=== PATIENT | female | born 1950 | race Caucasian/White ===

== ENCOUNTER 2017-03-30 14:35 | Inpatient (IN) ==
[2017-03-30] MEDS ORDERED: SOLU-MEDROL IV ONE (15:15)
[2017-03-30] MEDS ORDERED: DUONEB (A & A) INH ONE (15:17)
[2017-03-30 16:12] LABS: ALLEN TEST YES; BE 2.1 mmoll (-3.0-3.0); BLOOD TYPE ARTERIAL; DRAW SITE R RADIAL; METHB 0.8 % (0.0-1.5); O2(CT) 15.4 mL/dL (15.0-23.0); SAMPLE BLOOD; SAO2 80.3 % (95.0-100.0); THB 14.1 g/dL (11.5-17.4); pH(98.6) 7.23 (7.35-7.45)
[2017-03-30 16:12] LABS: MANUAL DIFF NEEDED? NO
[2017-03-30 16:13] LABS: PCO2(98.6) 77 mmHg (35-45); PO2(98.6) 44 mmHg (60-100)
[2017-03-30 16:14] LABS: MODALITY ROOM AIR
[2017-03-30 16:17] LABS: BASO% 0.7 % (0.0-0.8); EOS# 0.68 X1000 (0.0-0.7); EOS% 7.9 % (0.0-10.0); HEMATOCRIT 44.4 % (37.0-47.0); HEMOGLOBIN 13.5 g/dL (12.0-16.0); IMM GRAN# 0.03 X1000 (0.0-0.04); IMM GRAN% 0.3 % (0.0-0.5); LYMPH% 19.7 % (20.5-51.1); MCH 29.2 PG (27-31); MCHC 30.4 g/dL (33-37); MCV 96.1 FL (81-99); MONO# 0.73 X1000 (0.11-0.59); MONO% 8.5 % (1.7-9.3); MPV 13.2 FL (7.4-10.4); NEUT% 62.9 % (42.2-75.2); PLT 255 X1000 (130-400); RBC 4.62 XMIL (4.2-5.4)
[2017-03-30 16:42] LABS: ALBUMIN 3.4 g/dL (3.5-5.0); CALCIUM 8.8 mg/dL (8.8-10.2); POTASSIUM 5.4 mmol/L (3.5-5.1); TOTAL BILIRUBIN 0.34 mg/dL (0.20-1.00); TOTAL PROTEIN 6.7 g/dL (6.3-8.3)
--- NOTE | 2017-03-30 16:49 | Diag Imaging Result Doc PS360 ---
CHEST-1 VIEW - 03/30/2017 INDICATION: shortness of breath TECHNIQUE: COMPARISON: 01/02/2017 FINDINGS: Stable cardiomegaly. Pulmonary vascularity is grossly normal. No definite infiltrates. IMPRESSION: Cardiomegaly. Electronically signed by Isaiah Dior 03/30/2017 4:47 PM
--- NOTE | 2017-03-30 17:46 | PROVIDER DOCUMENTATION ---
This chart was entered by Bernabe Camacho Scribe, acting as scribe for Henry Naik MD. HPI-General Adult - General Source: patient - History of Present Illness -Gen Adult Nature of Presenting Problems: Patient is a 67 y/o F that presents to the ER with right shoulder pain, shortness of breath, and weakness. The shortness of breath began 24 hours ago but worsened today prior to PT. patient then had right shoulder pain. patient reports symptoms are better. EMS found her hypotensive., o2 saturation on RA was in the 70s Location of Pain/Injury: reports: upper extremity (right shoulder) Pain Radiation: reports: no radiation Quality of Pain: reports: dull Severity: reports: moderate Onset/Duration: reports: abrupt, this afternoon Timing: reports: gone now Context/Activities at Onset: reports: light activity (about to start PT) Modifying Factors: improves with: nothing Associated Symptoms: reports: joint pain, shortness of breath, weakness. denies : back/neck pain, cough, dizziness, EENT symptoms, fever/chills, genitourinary problems, vomiting Similar Symptoms Previously?: Yes Recently seen or treated by another doctor?: No <Henry Naik - Last Filed: 03/30/17 17:45> - General Source: patient <StevanEdgard - Last Filed: 03/30/17 19:13> - General Chief Complaint: Weakness Stated Complaint: HYPERTENSION Time Seen by Provider: 03/30/17 14:39 Allergies/Adverse Reactions: Patient Allergies Allergy/AdvReac Type Severity Reaction Status Date / Time codeine Allergy ITCHING Verified 03/30/17 16:13 Home Medications: Home Medication List Medication Instructions Recorded Confirmed Last Taken Type Budesonide 0.5 mg IH TID 03/30/17 03/30/17 Unknown History Budesonide/Formoterol Fumarate 1 dose INH DAILY 03/30/17 03/30/17 Unknown History [Symbicort 160-4.5 Mcg Inhaler] Carvedilol [Coreg] 1 tab PO BID 03/30/17 03/30/17 Unknown History Chlorthalidone 25 mg PO DAILY 03/30/17 03/30/17 Unknown History Clobetasol Propionate [Cormax] 50 ml TP 03/30/17 Unknown History Epinephrine Auto Injector [Epipen] 1 dose ORDERED DIRECTED 03/30/17 Unknown History Formoterol Fumarate [Perforomist] 20 mcg IH BID 03/30/17 03/30/17 Unknown History Gabapentin 300 mg PO TID 03/30/17 03/30/17 Unknown History Ipratropium/Albuterol Sulfate 3 ml IH TID 03/30/17 03/30/17 Unknown History [Iprat-Albut 0.5-3(2.5) mg/3 ml] Losartan Potassium 100 mg PO DAILY 03/30/17 03/30/17 Unknown History Meloxicam [Mobic] 7.5 mg PO DAILY 03/30/17 03/30/17 Unknown History Montelukast Sodium [Singulair] 10 mg PO DAILY 03/30/17 03/30/17 Unknown History Omeprazole 20 mg PO DAILY 03/30/17 03/30/17 Unknown History Oxybutynin [Ditropan] 5 mg PO DAILY 03/30/17 03/30/17 Unknown History Polyethylene Glycol 3350 [Miralax] 17 gm PO DAILY PRN 03/30/17 03/30/17 Unknown History Simvastatin 40 mg PO DAILY 03/30/17 03/30/17 Unknown History Review of Systems - Adult - REVIEW OF SYSTEMS - ADULT Constitutional: denies: chills, fever Eyes: reports: no symptoms reported Ears, Nose, Mouth & Throat: reports: no symptoms reported Cardiovascular: denies: chest pain, orthopnea, palpitations, syncope Respiratory: reports: shortness of breath. denies: cough, wheezing Gastrointestinal: denies: abdominal pain, diarrhea, nausea, vomiting Genitourinary: reports: no symptoms reported Musculoskeletal: reports: joint pain, muscle weakness. denies: back pain, neck pain Integumentary: reports: no symptoms reported Neurological: reports: no symptoms reported Psychiatric: reports: no symptoms reported Endocrine: reports: no symptoms reported Hematologic/Lymphatic: reports: no symptoms reported Allergic/Immunologic: reports: no symptoms reported All Other Systems: Reviewed and Negative <Henry Naik - Last Filed: 03/30/17 17:45> - REVIEW OF SYSTEMS - ADULT Constitutional: denies: fever Eyes: reports: no symptoms reported Ears, Nose, Mouth & Throat: reports: no symptoms reported Cardiovascular: denies: chest pain, orthopnea, palpitations, syncope <Edgard Calles - Last Filed: 03/30/17 19:13> Past History - Adult - PAST MEDICAL HISTORY-ADULT Review of Records: reports: Old Records Reviewed, Nursing Assessment Review, Medications Reviewed Cardiovascular: reports: HTN Respiratory: reports: asthma Gastrointestinal: reports: GERD Musculoskeletal: reports: arthritis Endocrine/Immune: reports: thyroid disorder Other Conditions: reports: denies history - PRIOR SURGERIES/PROCEDURES Surgical/Procedure History: reports: cholecystectomy, hysterectomy, joint replacement - IMMUNIZATION STATUS Childhood Immunizations: See Nurse Assessment Flu Vaccine: See Nurse Assessment - FAMILY HISTORY Family History: reviewed, not pertinent - SOCIAL HISTORY Smoking: non-smoker Living Situation: family <Henry Naik - Last Filed: 03/30/17 17:45> - PAST MEDICAL HISTORY-ADULT Review of Records: reports: Old Records Reviewed, Nursing Assessment Review, Medications Reviewed Cardiovascular: reports: HTN Respiratory: reports: asthma <Edgard Calles - Last Filed: 03/30/17 19:13> Physical Exam-General - PHYSICAL EXAM-ADULT Initial Vital Signs Reviewed: Yes - CONSTITUTIONAL General Appearance: alert, mild distress, obese - EYES Eyes: PERRL/EOMI, pink conjunctivae - HEAD, EARS, NOSE, MOUTH & THROAT HENMT: normocephalic/atraumatic, moist mucous membranes, normal ENT inspection - NECK Neck: full range of motion, normal inspection - RESPIRATORY Respiratory: no respiratory distress, no accessory muscle use, wheezing (left upper). negative: stridor - CARDIOVASCULAR Cardiovascular: regular rate, rhythm, no edema, no JVD, no murmur - GASTROINTESTINAL (ABDOMEN) Abdominal Exam: normal bowel sounds, non tender, soft, no organomegaly, no pulsatile mass - MUSCULOSKELETAL Back Exam: no CVA tenderness, no vertebral tenderness Extremity: normal range of motion, normal inspection, no pedal edema - SKIN Integumentary: normal color, warm/dry - NEUROLOGIC Neurologic: web development director II-XII nml as tested, no motor/sensory deficits - PSYCHIATRIC Psych/Mental Status: normal mood/affect, normal thought content, normal thought process, oriented x 3 <Henry Naik - Last Filed: 03/30/17 17:45> - PHYSICAL EXAM-ADULT Initial Vital Signs Reviewed: Yes - CONSTITUTIONAL General Appearance: alert, mild distress, obese - EYES Eyes: PERRL/EOMI, pink conjunctivae - HEAD, EARS, NOSE, MOUTH & THROAT HENMT: normocephalic/atraumatic, moist mucous membranes - NECK Neck: full range of motion, normal inspection - RESPIRATORY Respiratory: no respiratory distress, no accessory muscle use, wheezing. negative: stridor <Edgard Calles - Last Filed: 03/30/17 19:13> Progress - PLAN OF CARE/RESULTS Progress/Plan/Lab Results: Vital Signs - 8 hr 03/30/17 14:42 03/30/17 14:45 03/30/17 15:09 Temperature 98.1 F Pulse Rate 96 H 89 Respiratory Rate 20 21 Blood Pressure 94/47 108/73 O2 Sat by Pulse Oximetry 78 L 92 L 96 Orders Category Date Time Status CHEST-2 VIEWS [RAD] Stat Exams 03/30/17 15:13 Ordered ABG [RESP] Routine Lab 03/30/17 15:14 Ordered CBC WITH ELECTRONIC DIFF [HEME] Stat Lab 03/30/17 15:14 Ordered COMPREHENSIVE METABOLIC PANEL [CHEM] Stat Lab 03/30/17 15:12 Ordered D-DIMER [CHEM] Stat Lab 03/30/17 15:12 Ordered PRO B-NATRIURETIC PEPTIDE Stat Lab 03/30/17 15:15 Ordered TROPONIN T Stat Lab 03/30/17 15:13 Ordered Albuterol 2.5MG/Ipratrop 0.5MG [Duoneb (A & A)] Med 03/30/17 15:17 Discontinued 3 ml INH NOW ONE Methylprednisolone Sod Succ [Solu-Medrol] Med 03/30/17 15:15 Discontinued 125 mg IV NOW ONE Aerosol Treatments Routine Oth 03/30/17 15:17 Active Aerosol Treatments Stat Oth 03/30/17 15:17 Active Result Diagrams: 03/30/17 15:06 03/30/17 15:06 - EKG 1 Time of EKG reading by physician:: 15:24 EKG Read and Signed by:: Henry Naik EKG Interpretation (*Must complete 3 of following elements*): Abnormal Rate: 87 Rhythm: NSR Shushan: normal QRS: normal NC Interval: normal ST Wave: non-specific ST changes - CHANGE OF SHIFT REPORT (ED Provider) Report Given and Care Transferred to:: Time of Transfer: 17:46 Items Pending: Labs, CT/MRI Results <Henry Naik - Last Filed: 03/30/17 17:45> - PLAN OF CARE/RESULTS Progress/Plan/Lab Results: Vital Signs - 8 hr 03/30/17 14:42 03/30/17 14:45 03/30/17 15:09 Temperature 98.1 F Pulse Rate 96 H 89 Respiratory Rate 20 21 Blood Pressure 94/47 108/73 O2 Sat by Pulse Oximetry 78 L 92 L 96 03/30/17 15:20 03/30/17 17:43 03/30/17 19:02 Temperature 97.9 F Pulse Rate 85 84 84 Respiratory Rate 18 18 18 Blood Pressure 137/69 134/84 O2 Sat by Pulse Oximetry 95 94 L 94 L Laboratory Results - last 24 hr 03/30/17 03/30/17 03/30/17 15:06 15:06 15:06 WBC RBC Hgb Hct MCV MCH MCHC RDW Std Deviation Plt Count MPV Immature Gran % (Auto) Neut % (Auto) Lymph % (Auto) Person % (Auto) Eos % (Auto) Baso % (Auto) Immature Gran # (Auto) Neut # (Auto) Lymph # (Auto) Person # (Auto) Eos # (Auto) Baso # (Auto) D-Dimer 0.82 H Specimen Type Sample Site pH pCO2 pO2 HCO3 Base Excess Oxyhemoglobin ABG O2 Sat (Calculated) ABG O2 Saturation ABG Carboxyhemoglobin ABG Methemoglobin Júnior Test A-a O2 Difference Total Hemoglobin Lactate Blood Gas Modality FiO2 % Sodium 143 Potassium 5.4 H Chloride 102 Carbon Dioxide 40 H Anion Gap 1 BUN 33 H Creatinine 1.6 H Estimated GFR/1.73 m2 32 BUN/Creatinine Ratio 21 Glucose 162 H Calculated Osmolality 296 Calcium 8.8 Total Bilirubin 0.34 AST 23 ALT 16 Alkaline Phosphatase 68 Troponin T 0.175 H Flp-M-Qgovxeeidsv Pept Total Protein 6.7 Albumin 3.4 L Globulin 3.3 Albumin/Globulin Ratio 1.0 Urine Source Urine Color Urine Turbidity Urine pH Ur Specific [place] Urine Protein Ur Glucose (Stick) Ur Ketones (Stick) Urine Blood Urine Nitrite Urine Bilirubin Urobilinogen Dipstick Urine Leukocytes Urine WBC (Auto) Urine RBC (Auto) U Epithel Cells (Auto) Urine Bacteria (Auto) 03/30/17 03/30/17 03/30/17 15:06 15:06 15:45 WBC 8.61 RBC 4.62 Hgb 13.5 Hct 44.4 MCV 96.1 MCH 29.2 MCHC 30.4 L RDW Std Deviation 15.3 H Plt Count 255 MPV 13.2 H Immature Gran % (Auto) 0.3 Neut % (Auto) 62.9 Lymph % (Auto) 19.7 L Person % (Auto) 8.5 Eos % (Auto) 7.9 Baso % (Auto) 0.7 Immature Gran # (Auto) 0.03 Neut # (Auto) 5.41 Lymph # (Auto) 1.70 Person # (Auto) 0.73 H Eos # (Auto) 0.68 Baso # (Auto) 0.06 D-Dimer Specimen Type ARTERIAL Sample Site R RADIAL pH 7.23 L pCO2 77 H* pO2 44 L* HCO3 26.0 Base Excess 2.1 Oxyhemoglobin 77.7 L* ABG O2 Sat (Calculated) 15.4 ABG O2 Saturation 80.3 L ABG Carboxyhemoglobin 2.40 ABG Methemoglobin 0.8 Júnior Test YES A-a O2 Difference 9.0 Total Hemoglobin 14.1 Lactate 1.50 Blood Gas Modality ROOM AIR FiO2 % 21.0 Sodium Potassium Chloride Carbon Dioxide Anion Gap BUN Creatinine Estimated GFR/1.73 m2 BUN/Creatinine Ratio Glucose Calculated Osmolality Calcium Total Bilirubin AST ALT Alkaline Phosphatase Troponin T Rsw-N-Vehtlmrrmcg Pept 2134 H Total Protein Albumin Globulin Albumin/Globulin Ratio Urine Source Urine Color Urine Turbidity Urine pH Ur Specific [place] Urine Protein Ur Glucose (Stick) Ur Ketones (Stick) Urine Blood Urine Nitrite Urine Bilirubin Urobilinogen Dipstick Urine Leukocytes Urine WBC (Auto) Urine RBC (Auto) U Epithel Cells (Auto) Urine Bacteria (Auto) 03/30/17 17:41 WBC RBC Hgb Hct MCV MCH MCHC RDW Std Deviation Plt Count MPV Immature Gran % (Auto) Neut % (Auto) Lymph % (Auto) Person % (Auto) Eos % (Auto) Baso % (Auto) Immature Gran # (Auto) Neut # (Auto) Lymph # (Auto) Person # (Auto) Eos # (Auto) Baso # (Auto) D-Dimer Specimen Type Sample Site pH pCO2 pO2 HCO3 Base Excess Oxyhemoglobin ABG O2 Sat (Calculated) ABG O2 Saturation ABG Carboxyhemoglobin ABG Methemoglobin Júnior Test A-a O2 Difference Total Hemoglobin Lactate Blood Gas Modality FiO2 % Sodium Potassium Chloride Carbon Dioxide Anion Gap BUN Creatinine Estimated GFR/1.73 m2 BUN/Creatinine Ratio Glucose Calculated Osmolality Calcium Total Bilirubin AST ALT Alkaline Phosphatase Troponin T Hxp-R-Niulmvybvzw Pept Total Protein Albumin Globulin Albumin/Globulin Ratio Urine Source CLEAN CATCH Urine Color YELLOW Urine Turbidity HAZY Urine pH 5.5 Ur Specific [place] 1.018 Urine Protein 30 A Ur Glucose (Stick) NEGATIVE Ur Ketones (Stick) NEGATIVE Urine Blood NEGATIVE Urine Nitrite NEGATIVE Urine Bilirubin NEGATIVE Urobilinogen Dipstick NORMAL Urine Leukocytes MODERATE A Urine WBC (Auto) TNTC A Urine RBC (Auto) <10 U Epithel Cells (Auto) <10 Urine Bacteria (Auto) 4+ Orders Category Date Time Status ANGIOGRAM/PULMONARY ARTERIES [CT] Stat Exams 03/30/17 17:56 Completed CHEST-1 VIEW [RAD] Stat Exams 03/30/17 15:13 Completed ABG [RESP] Routine Lab 03/30/17 15:45 Completed CBC WITH ELECTRONIC DIFF [HEME] Stat Lab 03/30/17 15:06 Completed COMPREHENSIVE METABOLIC PANEL [CHEM] Stat Lab 03/30/17 15:06 Completed D-DIMER [CHEM] Stat Lab 03/30/17 15:06 Completed PRO B-NATRIURETIC PEPTIDE Stat Lab 03/30/17 15:06 Completed TROPONIN T Stat Lab 03/30/17 15:06 Completed URINALYSIS W/POSS RFLX CULT-1 [URINALYSIS] Stat Lab 03/30/17 17:41 Completed URINE CULTURE [RM] Routine Lab 03/30/17 18:25 Received Albuterol 2.5MG/Ipratrop 0.5MG [Duoneb (A & A)] Med 03/30/17 15:17 Discontinued 3 ml INH NOW ONE Methylprednisolone Sod Succ [Solu-Medrol] Med 03/30/17 15:15 Discontinued 125 mg IV NOW ONE Aerosol Treatments Routine Oth 03/30/17 15:17 Completed Aerosol Treatments Stat Oth 03/30/17 15:17 Completed Result Diagrams: 03/30/17 15:06 03/30/17 15:06 <Edgard Calles - Last Filed: 03/30/17 19:13> Departure <Henry Naik - Last Filed: 03/30/17 17:45> - Departure Date of Disposition Decision: 03/30/17 Time of Disposition Decision: 19:10 Certified Medical Emergency: Emergent - Critical Care Note This patient required my direct & personal management of CC.: No <Edgard Calles - Last Filed: 03/30/17 19:13> - Departure DIAGNOSIS: Hypoxia CHF (congestive heart failure) Qualifiers: Congestive heart failure type: unspecified congestive heart failure type Congestive heart failure chronicity: chronic Qualified Code(s): I50.9 - Heart failure, unspecified Obesity due to excess calories with serious comorbidity Qualifiers: Body mass index: BMI 60.0-69.9 DIAGNOSIS: (Ruled Out): Obesity (BMI 30-39.9) Disposition: ADMITTED INPATIENT 09 Condition: Fair Referrals and Follow-Ups: Maren Hargrove MD [Primary Care Provider] - Attestation - Physician/ RADHA Attestation The physician spent face to face time with patient:: Yes Advanced Practice Provider documentation review:: Supervising physician onsite and consulted in the evaluation and care of this patient. The physician did have a face to face encounter with the patient. <Edgard Calles - Last Filed: 03/30/17 19:13> This chart was documented by the indicated scribe, (Bernabe Camacho, Scribe) and accurately reflects the services I performed and decisions made by me, Henry Naik MD, as attested by the provider's signature.
[2017-03-30 18:14] LABS: URINE MICRO REVIEW NEEDED? NO; URINE SOURCE CLEAN CATCH
[2017-03-30 18:20] LABS: BILIRUBIN URINE NEGATIVE (NEGATIVE); BLOOD URINE NEGATIVE (NEGATIVE); COLOR YELLOW; GLUCOSE URINE NEGATIVE (NEGATIVE); LEUKOCYTES URINE MODERATE (NEGATIVE); NITRITE URINE NEGATIVE (NEGATIVE); PH URINE 5.5; PROTEIN URINE 30 mg/dL (NEGATIVE); SP GRAVITY URINE 1.018; TURBIDITY URINE HAZY (CLEAR); UR EPITHELIAL CELLS <10 /HPF (<10); URINE BACTERIA 4+ /HPF; URINE CULTURE NEEDED? YES; URINE RBC <10 /HPF (<10); URINE WBC TNTC /HPF (<10); UROBILINOGEN URINE NORMAL (NORMAL)
--- NOTE | 2017-03-30 18:58 | Diag Imaging Result Doc PS360 ---
ANGIOGRAM/PULMONARY ARTERIES - 03/30/2017 INDICATION: sob elevated dimer TECHNIQUE: Axial CT images were obtained after administering intravenous contrast. Coronal MIP images were generated. A CT dose reduction protocol was used. COMPARISON: None FINDINGS: There is no pulmonary embolism. There is cardiomegaly. There is some bibasilar linear atelectasis. No focal infiltrates, pneumothorax, or pleural effusion. There is severe fatty change of the liver. Severe degeneration of the spine. No acute bony lesions. IMPRESSION: No acute disease. Incidental findings described above. Electronically signed by Isaiah Dior 03/30/2017 6:55 PM
[2017-03-30] MEDS: ROCEPHIN 1 GM/NS 1 GM/50 ML IVPB IV SCH (20:20)
[2017-03-30] MEDS ORDERED: MIRALAX PO PRN (21:16)
[2017-03-30] MEDS ORDERED: DUONEB (A & A) INH PRN (21:16)
[2017-03-30] MEDS ORDERED: ZOFRAN IV PRN (21:16)
[2017-03-30] MEDS: COREG PO SCH (22:17)
[2017-03-30 22:40] LABS: INR 1.02; PROTIME 10.7 Seconds (9.2-11.7)
[2017-03-30] MEDS: DUONEB (A & A) INH SCH (22:52)
--- NOTE | 2017-03-30 22:52 | Diag Imaging Result Doc PS360 ---
EXAM: HEAD W/O CONTRAST HISTORY: Confusion TECHNIQUE: CT brain without. Dose reduction protocol. COMPARISON: None. FINDINGS: No parenchymal hemorrhage. No epidural or subdural hematoma. No subarachnoid hemorrhage. No mass identified on this noncontrasted exam. No hydrocephalus. Questionable small hypodense area near the frontal horn of the left internal capsule. No sinus opacification. IMPRESSION: No hemorrhage. Questionable recent lacunar infarct near the anterior horn of the left internal capsule. A follow-up CT or MRI is suggested. Electronically signed by Alfredo Lemon 03/30/2017 10:50 PM
[2017-03-31] MEDS ORDERED: ASPIRIN PO ONE (00:30)
[2017-03-31 00:36] LABS: ALLEN TEST YES; BLOOD TYPE ARTERIAL; DRAW SITE R RADIAL; O2(CT) 19.7 mL/dL (15.0-23.0); PO2(98.6) 99 mmHg (60-100); SAMPLE BLOOD; SAO2 98.3 % (95.0-100.0); THB 14.6 g/dL (11.5-17.4); pH(98.6) 7.32 (7.35-7.45)
[2017-03-31 00:37] LABS: MODALITY BI PAP
[2017-03-31 00:38] LABS: PCO2(98.6) 55 mmHg (35-45)
[2017-03-31] MEDS: NS 1,000 ML IV SCH ×2 (01:30→11:44)
[2017-03-31] MEDS: DUONEB (A & A) INH SCH ×6 (03:12→22:52)
[2017-03-31 04:12] LABS: BASO% 0.1 % (0.0-0.8); EOS# 0.01 X1000 (0.0-0.7); EOS% 0.1 % (0.0-10.0); HEMATOCRIT 45.3 % (37.0-47.0); HEMOGLOBIN 13.7 g/dL (12.0-16.0); IMM GRAN# 0.08 X1000 (0.0-0.04); IMM GRAN% 0.9 % (0.0-0.5); LYMPH# 0.78 X1000 (1.2-3.4); LYMPH% 8.7 % (20.5-51.1); MANUAL DIFF NEEDED? YES; MCH 29.3 PG (27-31); MCHC 30.2 g/dL (33-37); MCV 96.8 FL (81-99); MONO% 1.1 % (1.7-9.3); MPV 12.2 FL (7.4-10.4); NEUT% 89.1 % (42.2-75.2); PLT 231 X1000 (130-400); RBC 4.68 XMIL (4.2-5.4)
[2017-03-31] MEDS: HEPARIN SUBQ SCH ×3 (04:12→20:45)
[2017-03-31 04:28] LABS: BANDS 1 % (0-1); CALCIUM 8.9 mg/dL (8.8-10.2); EOS 2 % (1-10); LYMPHS 6 % (21-51); MONO 2 % (1-9); POLYCHROM OCCASIONAL; POTASSIUM 5.6 mmol/L (3.5-5.1); TOTAL BILIRUBIN 0.29 mg/dL (0.20-1.00); TOTAL PROTEIN 7.1 g/dL (6.3-8.3)
[2017-03-31] MEDS: PRILOSEC PO SCH (06:00)
[2017-03-31] MEDS: SYNTHROID PO SCH (06:00)
--- NOTE | 2017-03-31 06:08 | HISTORY AND PHYSICAL ---
PRIMARY CARE PROVIDER: Dr. Maren Hargrove. DATE AND TIME OF HISTORY AND PHYSICAL: 03/30/2017 at 21:30. CHIEF COMPLAINT: Weakness, dizziness, and shortness of breath. HISTORY OF PRESENT ILLNESS: The patient is a 67-year-old female who presented to the ER this afternoon at approximately 02:35. She states that just prior to arrival she had arrived at her regularly scheduled outpatient rehab appointment. She states that she got out of her car and began to walk up the ramp into the building and told her friend that she did not feel well. They went ahead and sat her down in the lobby and after evaluating her they did end up calling an ambulance. Upon EMS arrival, she was found to be hypotensive as well as hypoxic with a room air oxygen saturation in the 70s. Once she arrived to the ER, they did place her on nasal cannula at 4 L. Her oxygen saturation had improved to 92. Arterial blood gases showed her to have a pH of 7.23 with a CO2 of 77, PO2 of 44, HC03 of 26 and O2 saturation of 80. She has since been placed on BiPAP. She reports that prior to her episode that she did go to her pain doctor yesterday and received a new prescription for Demerol and did take the first dose of this medication last night. She also reports that she does have a history of sleep apnea and is supposed to wear CPAP at night though does not regularly do so. Also, her as well as the patient did report for the past week that she has had some periods of confusion stating that one day she could not remember what the date was. There was another episode where she was trying to write something down on a piece of paper and was not able to do this. Her states that this has been intermittent for the past week. She denied any previous history of stroke. She denies any headache, visual disturbances or ataxia though has reported some dizziness, weakness and some numbness and tingling in her bilateral hands. After evaluating the patient, we did decide to go ahead and order a CT of the head without contrast, which did show a questionable recent lacunar infarct near the anterior horn of the left internal capsule. Also, the patient's creatinine is elevated. She denies any previous history of renal problems. She denies any pain or burning with urination. She did report that she noticed she has not been going to the bathroom as much as she normally does. She denies any change in the color or odor of her urine. She also denies any chest pain, cough, fever, body aches or chills. No abdominal pain. No nausea or vomiting. The patient does have some chronic low back pain and neuropathy in her bilateral lower extremities secondary to this though states this has not worsened. Also, the patient's D-dimer was elevated at 0.82. An angiogram of the pulmonary arteries with a CT dose reduction protocol was performed and was negative for any pulmonary embolism. At this time the patient will be admitted inpatient for further treatment evaluation. REVIEW OF SYSTEMS: A 12 point review of systems was conducted with the patient. All were negative except for pertinent positives as mentioned above in HPI. PAST MEDICAL HISTORY: 1. Asthma. 2. Hypertension. 3. Hyperlipidemia. 4. Hypothyroidism. 5. Chronic low back pain secondary to reported bulging disk. 6. Neuropathy. 7. Sleep apnea. 8. Osteoarthritis. 9. Obesity. 10. Depression. PAST SURGICAL HISTORY: 1. Cholecystectomy. 2. Hysterectomy. 3. Right total knee replacement. 4. Bilateral foot surgery for heel spurs. SOCIAL HISTORY: The patient denies any past or present tobacco, alcohol or illicit drug use. She currently is and lives at home with her . FAMILY HISTORY: The patient reports that she does not know all of her family medical history due to she is adopted though does note that her mother in her 60s secondary to myocardial infarction, and her half brother also has a history of heart disease with myocardial infarction as well. ALLERGIES: Patient reports allergies to codeine and hydrocodone. HOME MEDICATIONS: 1. Synthroid 175 mcg p.o. daily. 2. Singulair 10 mg p.o. daily. 3. DuoNeb nebulizer treatments 3 mL inhaled t.i.d. 4. Perforomist 25 mcg inhaled b.i.d. 5. Budesonide 0.5 mg inhaled t.i.d. 6. EpiPen 1 dose as directed. Patient reports anaphylactic allergy to bees. 7. Symbicort 160-4.5 mcg inhaler 1 dose inhaled daily. 8. Simvastatin 40 mg p.o. daily. 9. Ditropan 5 mg p.o. daily. 10. Mobic 7.5 mg p.o. daily. 11. Coreg 3.125 mg p.o. b.i.d. 12. Omeprazole 20 mg p.o. daily. 13. Chlorthalidone 25 mg p.o. daily. 14. MiraLAX 17 g p.o. daily p.r.n. 15. Losartan potassium 100 mg p.o. daily. 16. Gabapentin 300 mg p.o. t.i.d. 17. Cormax, this is topically as directed. DIAGNOSTIC DATA/LABORATORY RESULTS: White blood cell count 8.61. Hemoglobin 13.5, hematocrit 44.4, and platelet count is 255,000. PT 10.7, INR 1.02, and PTT of 28. D- dimer 0.82. Sodium 143, potassium 5.4, chloride 102, bicarb 40, BUN 33, creatinine 1.6 with a GFR of 32, glucose 162 calcium 8.8. Liver function tests are within normal limits. CK 107. Troponin is 0.175. ProBNP 2134. Arterial blood gases were obtained on room air. The pH is 7.23 pCO2 77, PO2 44, HCO3 26. Oxyhemoglobin of 77.7, and O2 saturation of 80.3. Urinalysis was obtained via clean catch, and was positive for moderate leukocytes, too numerous to count white blood cells, and 4+ bacteria. Portable chest x-ray showed cardiomegaly. Angiogram pulmonary artery showed no pulmonary embolism. Cardiomegaly. There is some bibasilar linear atelectasis. No focal infiltrates, pneumothorax or pleural effusion. There is severe fatty change of the liver with severe degeneration of the spine with no acute bony lesions. This is per radiology. CT of the head noncontrast showed no hemorrhage noted. There is a questionable recent lacunar infarct near the anterior horn of the left internal capsule. A followup CT or MRI is suggested. PHYSICAL EXAMINATION: VITAL SIGNS: Temperature 98.1 degrees, heart rate 88, blood pressure 159/91, and oxygen saturation is 98% on BiPAP. GENERAL: Ms. Corona is a pleasant 67-year-old female. She is resting on the ER stretcher. She was in no acute distress. The patient did seem slightly drowsy upon examination. She was awake and alert and did respond appropriately to all questions. HEENT: Head is atraumatic, normocephalic. Pupils are equal, round, and reactive to light, were 3 mm bilaterally and brisk. Oral mucosa was slightly dry. The patient has had a BiPAP mask on. NECK: Supple. Trachea is midline. The patient had no obvious JVD noted upon examination though this examination was slightly limited due to the patient's body habitus. CARDIOVASCULAR: Patient had S1-S2 present though heart sounds were difficult to auscultate due to the patient's body habitus as well. PULMONARY: Patient has symmetrical chest expansion bilaterally. Lung sounds did have some expiratory wheezing noted upon auscultation bilaterally. At this time, she is tolerating BiPAP well and is maintaining oxygen saturations in the high 90s. ABDOMEN: Soft. Nontender. The patient does have a protuberant abdomen noted. Bowel sounds are present all 4 quadrants and were normoactive. EXTREMITIES: No cyanosis. No edema or clubbing noted. Pulse, motor and sensory were intact in all extremities. Pedal pulses were 3+ bilaterally. INTEGUMENTARY: The patient's skin is pink, warm, dry, and intact. No lesions or sores noted. NEUROLOGICAL: Patient is alert and oriented to person, place, time, and situation. Cranial nerves 2-12 appear to be grossly intact. She has no facial droop noted. Muscle strength is equal bilaterally though she appears to have some generalized weakness. She denies any numbness or tingling at this time. ASSESSMENT AND PLAN: 1. Acute hypercapnic respiratory failure possibly secondary to obesity hypoventilation syndrome which was likely further complicated by her taking a dose of Demerol. At this time, she has been placed on BiPAP. She is tolerating this well. Oxygen saturations are maintained in the high 90s. Repeat arterial blood gases that were performed did show reduction in her CO2 down to 55 as well as improvement in her pH up to 7.32. We will continue this at this time and monitor her respiratory status closely. We will continue with scheduled DuoNeb treatments and have placed a consult with Dr. Gallagher with Pulmonology. We will also hold any sedative medications at this time until her respiratory status has improved. We will continue to follow closely. 2. Possible recent lacunar infarct near the anterior horn of the left internal capsule. The patient at this time has no obvious neurological deficits though she had reported over the past week that she had periods of confusion. We would like to possibly perform an MRI though until her respiratory status has improved we will hold off on this at this time. We will do neurological checks. We did go ahead and place her on a low-dose aspirin daily. We have continued her Zocor as well. She has been placed NPO until she has a swallowing evaluation done. We will also perform a carotid ultrasound in the morning. She did have a recent echocardiogram done approximately 1 month ago on 02/27, which was within normal limits with an estimated ejection fraction of 65%. We will hold off on repeating this at this time. We have also placed a consult with Neurology, and will await their evaluation and further recommendations. 3. Acute kidney injury. This could be possibly secondary to mild fluid volume depletion. She will get gentle fluid resuscitation with normal saline at 100 an hour and will repeat a CMP in the morning. We will avoid nephrotoxic medications and renally dose medications as necessary. 4. Urinary tract infection. We have placed a urine culture and will await those results. She has also been placed on Rocephin 1 g IV q.24 hours. 5. Chronic low back pain. At this time, we need to hold the patient's pain medication but will continue her Neurontin. 6. Hypothyroidism. We will continue her levothyroxine. We have placed an order for a TSH level to be drawn in the morning. 7. She will be placed on CIC with telemetry. She will have vital signs q.4 as well as neuro checks. We will do strict intake and output. She will be on aspiration precautions. Also, the patient's troponin was slightly elevated. She denies any chest pain. EKG showed normal sinus rhythm with a nonspecific T-wave abnormality at a rate of 87 with a QTc of 421. We will do a series of cardiac enzymes continue to follow this. Further orders and recommendations pending hospital course, diagnostic studies, and physician evaluation. Dictated by DOMINIK Peraza for Balta Fischer MD cc: Balta Fischer MD pt examined, agree with above APENOT MTDD
[2017-03-31] MEDS: NEURONTIN PO SCH ×3 (08:20→16:38)
[2017-03-31] MEDS: DITROPAN PO SCH (08:21)
[2017-03-31] MEDS: SINGULAIR PO SCH (08:21)
[2017-03-31] MEDS: COREG PO SCH ×2 (08:21→20:47)
[2017-03-31] MEDS: SYMBICORT 160/4.5 MICROGM INHALER INH SCH (10:08)
[2017-03-31] MEDS: PULMICORT INH SCH ×2 (10:23→19:25)
--- NOTE | 2017-03-31 13:28 | EKG Report ---
Test Performed on : 03/31/2017 12:33:31 PM Test Reason : enzymes Blood Pressure : / mmHG Vent. Rate : 086 BPM Atrial Rate : 086 BPM P-R Int : 150 ms QRS Dur : 088 ms QT Int : 344 ms P-R-T Axes : 052 074 068 degrees QTc Int : 411 ms Normal sinus rhythm. Nonspecific T wave abnormality Abnormal ECG When compared with ECG of 02-JAN-2017 13:02, Nonspecific T wave abnormality, worse in Anterior leads Confirmed by Jag Maria DO ([id number]) on 04/02/2017 10:35:41 AM
--- NOTE | 2017-03-31 14:37 | PROGRESS NOTE ---
DATE: 03/31/2017 SUBJECTIVE: This patient states that she is feeling better, she is not using the BiPAP machine at this moment. She is on nasal cannula, she is able to answer all my questions properly. She is not confused. Family members at the bedside. All their questions were answered. OBJECTIVE: Vital Signs: Temperature 98.5 degrees, pulse 89, respiratory rate 16, blood pressure 138/82, O2 saturation 99 on 6 L of nasal cannula. HEENT: Head normocephalic. No trauma. PERRLA. Neck: Supple. I cannot see JVD because of the neck size. Central trachea. Chest: Decreased breath sounds globally. Prolonged expiatory phase. Mild expiatory wheezing. Abdomen: Soft, protuberant, nondistended. Extremities: Trace edema. No clubbing. No cyanosis. Neurological: The patient is alert and oriented x3. No focal deficits. LABORATORY: WBC 9, hemoglobin 13.7, hematocrit 45.3, platelets 232,000. Sodium 144, potassium 5.6, chloride 101, bicarbonate 32, BUN 31, creatinine 1.4, glucose 176, calcium 9.9, troponins 0.14/0.75/0.103. ProBNP 2134. ASSESSMENT AND PLAN: 1. Acute hypercapnic respiratory failure. She responded well to the BiPAP machine. Now she is on nasal cannula at 6 L, she is answering all my questions, she is alert and oriented x3. She is not complaining of respiratory distress at this moment. Pulmonary department following this patient. 2. Possible recent lacunar infarct near the anterior horn of the left internal capsule. Neurology department has been consulted. I cannot see any deficiency. We will wait for their recommendations. 3. Acute kidney injury. This is close to her baseline. Will continue to monitor. Continue with the same management. 4. Urinary tract infection. This patient has been placed on Rocephin. We will wait for the cultures. 5. Chronic low back pain. Continue with same treatment. 6. Hypothyroidism. She is on levothyroxine. 7. History of hypertension aware. Continue with the same management. Blood pressure is stable. 8. Morbid obesity with possible obesity hypoventilation syndrome. Continue with the same management. This patient has been highly advised about losing weight. She seems to understand. CRITICAL CARE TIME: 35 minutes. cc: Des Corona MD
--- NOTE | 2017-03-31 15:02 | CONSULTATION ---
DATE OF CONSULTATION: 03/31/2017 Ms. Corona is 67 years old and she had an episode of near-collapse yesterday. Workup includes noncontrast CT of the head, reported to show uncertain finding of possible left internal capsular lacune. She reports no history of clinical stroke diagnosed in the past. She reports feeling weak yesterday, weak all over, without focal features. She was a little bit lightheaded and dizzy. She felt a little bit better when she sat down. She was found to be hypoxic, with PO2 documented in the 70s. On arrival here, initial systolic blood pressure was 94 , later 108, and then 110s to 150s since then. She feels better today. By report, this episode followed a dose of meperidine. We do not have urine drug screen this admission. She is managed for chronic back pain. PAST HISTORY: Remarkable for hypertension, obstructive sleep apnea, dyslipidemia, hypothyroidism, chronic back pain, asthma, depression. PHYSICAL EXAMINATION: She has been afebrile here. Heart rate recorded here was once 61, otherwise 80s and 90s. On exam, she is awake, alert, attentive, appropriate, oriented. She is pleasant. Speech is not dysarthric. Language function is intact on brief bedside testing. I did not test her cognitive function thoroughly. Head and neck are unremarkable. She has full visual thomason, tested by confrontational finger-counting. Extraocular movements are full. Facial motility is symmetric. Gag is intact. Tongue is midline. Hearing is good. Shoulder shrug is equal. Strength is normal in the arms and legs. She did well on [id number] testing bilaterally. She reports equal pinprick and light touch appreciation on brief testing over the lower legs. I did not test her gait. Reflexes are 1+ symmetrically at the ankles. Plantar response is silent bilaterally. IMPRESSION: Episode of lightheadedness, associated with documented hypotension and hypoxia. She is improved now. There is incidental CT finding, which I think is not directly related to her presentation. I do not see any clinical neurologic deficit. I do not think we need to provide stroke workup at this point. She has outpatient neurology followup with Dr. Douglas in [place], with appointment coming up in a few months. I encouraged her to keep that appointment. Thanks for asking me to see Ms. Corona. cc: Irvin Hutchison III, MD MTDD
[2017-03-31] MEDS ORDERED: LASIX IV ONE (16:45)
--- NOTE | 2017-03-31 17:06 | CONSULTATION ---
DATE OF CONSULTATION: 03/31/2017 IMPRESSION: 1. Troponin just above normal range. Suspect likely provoked by stress of respiratory failure, hypercapnic. 2. Hypercapnic respiratory failure, likely related to obstructive sleep apnea. 3. Suspect component of right-sided congestive heart failure. 4. Obstructive sleep apnea with poor tolerance of CPAP in the past. Patient relates he recently has been started on Demerol just prior to episode of respiratory failure. 5. Morbid obesity. 6. Hypertension. 7. Hyperlipidemia. 8. Hypothyroidism. 9. Chronic back pain secondary to lumbar disk disease. 10. Neuropathy. RECOMMENDATIONS: 1. Gentle diuresis. 2. Echocardiography. 3. Conservative cardiovascular management overall in light of patient's morbid obesity and comorbidities. Appears most likely that the slightly elevated troponins are likely secondary phenomenon related to her hypercapnic respiratory failure. 4. Weight loss discussed with the patient at length. HISTORY: This 67-year-old white female with past history of morbid obesity, obstructive sleep apnea, hypertension, hyperlipidemia and chronic back disorder causing chronic back pain was admitted for further management of hypercapnic respiratory failure. She was recently started on Demerol as she was still having some pain despite gabapentin. She had taken a dose the night before admission and a dose the morning of admission. She relates going to physical therapy and walking up the ramp when she became lightheaded/dizzy. She went inside and reported to the staff that she was dizzy. There was no chest pain. She denies shortness of breath. Her blood pressure was checked and was low. EMS was summoned and they brought her to the hospital. She was noted to have hypercapnia and hypoxemia on presentation. She was placed on BiPAP with oxygen. She has been slowly improving. Blood pressure stabilized. Serial cardiac enzymes were obtained and demonstrated a troponin 0.1 on initial value and repeat troponin 0.1. For this reason, Cardiology was consulted. B-type natriuretic peptide level is also elevated at over 2000. PAST MEDICAL HISTORY: 1. Morbid obesity. 2. COPD. 3. Obstructive sleep apnea. 4. Hypertension. 5. Hyperlipidemia. 6. Hypothyroidism. 7. Chronic low back pain secondary to lumbar disk disease. 8. Neuropathy. 9. Osteoarthritis. 10. Depression. PAST SURGICAL HISTORY: Includes cholecystectomy, hysterectomy, right total knee replacement and bilateral foot surgery for heel spurs. ALLERGIES: She is allergic or intolerant to codeine and hydrocodone. MEDICATIONS: Prior to admission as listed. SOCIAL HISTORY: She does not smoke nor use alcohol. FAMILY HISTORY: Negative for premature coronary disease. REVIEW OF SYSTEMS: Pulmonary: Noteworthy for dyspnea but negative for orthopnea. She has had some chronic tendency . She has sleep apnea but does not tolerate CPAP. Gastrointestinal: Negative. Constitutional: Negative. Remainder review of systems negative/noncontributory with 14 total systems reviewed. PHYSICAL EXAMINATION: General: Reveals a morbidly obese older white female in no distress. Vital signs: Blood pressure 138/82, heart rate 89 and regular. There is no significant jugular venous distention. HEENT Exam: Extraocular muscles appear intact. Mucous membranes are moist. Neck: Supple without discernible jugular distention. There are no carotid bruits. Chest: Clear to auscultation. Cardiac Exam: Reveals a regular rate and rhythm without appreciable murmur or gallop. Abdomen: Soft, nontender. Bowel sounds are normal. Extremities: Demonstrate trace edema. Neurologic Exam: Reveals her to be alert, fully oriented. Speech is fluent. Moves all 4 extremities equally well. Skin: Warm, dry. Psychiatric: Reveals her mood to be appropriate. DIAGNOSTIC DATA: ECG demonstrates sinus rhythm and mild nonspecific T-wave abnormality. cc: Henry Russell MD
[2017-03-31] MEDS: ROCEPHIN 1 GM/NS 1 GM/50 ML IVPB IV SCH (20:45)
[2017-03-31] MEDS: ZOCOR PO SCH (20:46)
[2017-04-01] MEDS ORDERED: CALMOSEPTINE OINTMENT TOP PRN (02:37)
[2017-04-01] MEDS: DUONEB (A & A) INH SCH ×6 (03:10→23:19)
[2017-04-01 03:23] LABS: ALLEN TEST YES; BE 5.4 mmoll (-3.0-3.0); BLOOD TYPE ARTERIAL; DRAW SITE R RADIAL; O2(CT) 18.7 mL/dL (15.0-23.0); PO2(98.6) 140 mmHg (60-100); SAMPLE BLOOD; SAO2 99.5 % (95.0-100.0); THB 13.6 g/dL (11.5-17.4); pH(98.6) 7.25 (7.35-7.45)
[2017-04-01 03:24] LABS: MODALITY CANNULA
[2017-04-01 03:26] LABS: PCO2(98.6) 81 mmHg (35-45)
[2017-04-01] MEDS: PRILOSEC PO SCH (06:00)
[2017-04-01] MEDS: HEPARIN SUBQ SCH ×3 (06:00→20:54)
[2017-04-01] MEDS: SYNTHROID PO SCH (06:00)
[2017-04-01 06:38] LABS: CALCIUM 8.9 mg/dL (8.8-10.2); POTASSIUM 4.6 mmol/L (3.5-5.1)
[2017-04-01] MEDS: PULMICORT INH SCH ×3 (08:08→21:34)
[2017-04-01] MEDS: SYMBICORT 160/4.5 MICROGM INHALER INH SCH (08:08)
[2017-04-01] MEDS: NEURONTIN PO SCH ×4 (10:34→20:54)
[2017-04-01] MEDS: LASIX PO SCH (10:34)
[2017-04-01] MEDS: DITROPAN PO SCH (10:34)
[2017-04-01] MEDS: SINGULAIR PO SCH (10:35)
[2017-04-01] MEDS: ASPIRIN PO SCH (10:35)
[2017-04-01] MEDS: COREG PO SCH ×2 (10:35→20:54)
--- NOTE | 2017-04-01 14:24 | CONSULTATION ---
DATE OF CONSULTATION: 04/01/2017 PULMONARY CONSULT NOTE: CHIEF COMPLAINT: Weakness, shortness of breath. HISTORY OF PRESENT ILLNESS: This 67-year-old female who has a past medical history of asthma and sleep apnea, has a complaint of shortness of breath. She denies cough or chest pain at this time. She states that she has currently been treated for sleep apnea but noncompliant to treatment plan. REVIEW OF SYSTEMS: A 10-point review of systems was conducted, and the pertinent is listed in the HPI, otherwise noncontributory. PAST MEDICAL HISTORY: Asthma, hypertension, hyperlipidemia, sleep apnea, neuropathy, chronic low back pain, osteoarthritis, obesity depression. PAST SURGICAL HISTORY: Cholecystectomy, hysterectomy, right knee total replacement, bilateral foot surgery for heel spurs. SOCIAL HISTORY: Denies alcohol or tobacco use. Denies illicit drug use. She is and lives at home with her . FAMILY HISTORY: Patient is unaware of most of her family history because she is adopted. She does note that her mother secondary to myocardial infarction in her 60s. Her half brother also has a history of heart disease with [place] as well. ALLERGIES: Codeine and hydrocodone. HOME MEDICATIONS: Synthroid 175 mcg p.o. daily. Singulair 10 mg p.o. daily. Budesonide 0.5 inhale t.i.d. Perforomist 25 mcg inhaled b.i.d. DuoNeb nebulizer treatments inhaled 3 times daily. Singulair 10 mg p.o. daily. EpiPen as directed, allergy to bees. Symbicort 2 puffs b.i.d. Simvastatin 40 mg p.o. daily. Ditropan 5 mg p.o. daily. Coreg 3.125 mg p.o. b.i.d. Mobic 7.5 mg p.o. daily. Omeprazole 20 mg p.o. daily. Chlorthalidone 25 mg p.o. daily. MiraLAX 17 g p.o. p.r.n. Losartan 100 mg p.o. daily. Gabapentin 300 mg p.o. 3 times daily. DIAGNOSTIC DATA: Chest x-ray: Stable cardiomegaly. Pulmonary vascularity is grossly normal. No definite infiltrates. Laboratory Data: White blood cells 9.01. Blood gas; pH 7.25, pCO2 81, pO2 148 , HCO3 29.1, base excess 5.4, oxyhemoglobin 96.8. PHYSICAL EXAMINATION: Vital Signs: Blood pressure 123/60, pulse 84, respirations 18, temperature 98.4, O2 of 99% on BiPAP. General: Pleasant female, in no acute distress. Awake and alert. HEENT: Head is atraumatic, normocephalic. Pupils are equal, round and reactive to light and accommodation. Neck: Supple. Trachea is midline. No obvious JVD. Cardiovascular: S1 and S2 auscultated. Pulmonary: Decreased lung sounds bilateral. Abdomen: Soft, nontender. Bowel sounds present. Extremities: Without cyanosis or edema. 3+ pedal pulses bilaterally. Integumentary: Skin warm, dry and intact. Neurologic: Alert, oriented to person, place, time. ASSESSMENT AND PLAN: Acute hypercapnic respiratory failure. COPD, EMILIANO. Continue BiPAP therapy. Bronchodilators as prescribed. Positive troponin, will consult cardiology. Urinary tract infection. I agree with antibiotics. Will follow ABGs and labs and clinical course Management otherwise per other teams on the case. Thank you for the courtesy of this consult. Dictated by DOMINIK Fang for Taylor Gallagher MD cc: DOMINIK Fang MD [facility]
--- NOTE | 2017-04-01 15:47 | PROGRESS NOTE ---
DATE: 04/01/2017 SUBJECTIVE: This patient states that she is feeling about the same compared with yesterday. She has no complaint of chest pain or shortness of breath. She slept with the BiPAP machine. At this moment, she is on nasal cannula. She is not confused. No family members at the bedside. OBJECTIVE: Vital Signs: Temperature 98.4 degrees, pulse 84, respiratory rate 18, blood pressure 123/60, oxygen saturation 99 on 6 L of nasal cannula. HEENT: Normocephalic. No trauma. PERRLA. Neck: Supple. I cannot see JVD because of her neck size. Central trachea. Chest: Decreased breath sounds globally. Prolonged expiatory phase. No wheezing. Abdomen: Soft, protuberant, and nondistended. Extremities: Trace edema. No clubbing. No cyanosis. Neurological: The patient is alert and oriented x3. No focal deficits. LABORATORY STUDIES: CO2 still elevated at 81. Sodium 141, potassium 4.6, chloride 100, bicarbonate 30, BUN 29, creatinine 1.3, glucose 111, calcium 8.9. ASSESSMENT AND PLAN: 1. Acute hypercapnic respiratory failure. She is still using oxygen and BiPAP machine, mostly during the night. She has been answering all of my questions properly. Pulmonary department following this patient. We will continue following their recommendations. 2. Possible recent lacunar infarct near the anterior horn of the left internal capsule. Neurology department has been consulted. I can not find any deficits. We will continue with the same management. 3. Acute kidney injury. This is much better. I believe this is her baseline. 4. Urinary tract infection. Continue with Rocephin. 5. Chronic low back pain. Continue with the same treatment. 6. Hypothyroidism. She is on levothyroxine. 7. History of hypertension, aware. Continue with the same management. Blood pressure stable. 8. Morbid obesity, with possible hyperventilation syndrome and sleep apnea. Continue with the same management. This patient has been highly advised about losing weight. She seems to understand. CRITICAL CARE TIME: 35 minutes. cc: Des Corona MD
--- NOTE | 2017-04-01 18:30 | ECHO REPORT ---
ORDER DATE: 03/31/2017 INTERPRETING PHYSICIAN: Dr. Strong REQUESTING PHYSICIAN: Dr. Russell. CLINICAL INDICATIONS: Patient weighs 388 pounds. PROCEDURE: Echocardiogram limited with contrast. M-MODE MEASUREMENTS: Right ventricle: cm. Left ventricle end diastole: cm. Left ventricle end systole: cm. Posterior wall: cm. Interventricular septum: cm. Left atrium: cm. Aortic root: cm. SUMMARY OF 2-DIMENSIONAL IMAGING: The right ventricle appears to be probably mildly enlarged. No significant wall motion abnormality is noted. The aortic valve appears to be grossly normal. The left ventricle did not appear to be dilated. It shows normal function. Ejection fraction visually appears to be in the order of 65%. No definite wall motion abnormality was noted, however, this study was really very limited. The apex, the septum, the anterior wall, the inferior wall showed generally good contractility. There is a prominent epicardial fat pad. IMPRESSION: In summary, this study was technically difficult. This is a contrasted study. The left ventricular function appears to be normal. The aortic valve appears to be grossly normal. The right ventricle is not dilated. It shows normal function. Clinical correlation recommended. cc: MD Henry Cutler MD
[2017-04-01] MEDS: ROCEPHIN 1 GM/NS 1 GM/50 ML IVPB IV SCH (20:53)
[2017-04-01] MEDS: ZOCOR PO SCH (20:54)
[2017-04-02] MEDS: DUONEB (A & A) INH SCH ×4 (03:36→23:08)
[2017-04-02] MEDS: HEPARIN SUBQ SCH ×3 (05:04→21:20)
[2017-04-02] MEDS: SYNTHROID PO SCH ×2 (05:05→06:00)
[2017-04-02] MEDS: PRILOSEC PO SCH ×2 (05:05→06:00)
[2017-04-02 05:47] LABS: MANUAL DIFF NEEDED? NO
[2017-04-02 05:56] LABS: BASO% 0.5 % (0.0-0.8); EOS# 0.71 X1000 (0.0-0.7); EOS% 7.5 % (0.0-10.0); HEMOGLOBIN 13.8 g/dL (12.0-16.0); IMM GRAN# 0.03 X1000 (0.0-0.04); IMM GRAN% 0.3 % (0.0-0.5); LYMPH# 2.19 X1000 (1.2-3.4); MCH 29.2 PG (27-31); MCHC 30.7 g/dL (33-37); MCV 95.3 FL (81-99); MONO# 0.84 X1000 (0.11-0.59); MONO% 8.8 % (1.7-9.3); MPV 12.6 FL (7.4-10.4); NEUT% 59.9 % (42.2-75.2); PLT 240 X1000 (130-400); RBC 4.72 XMIL (4.2-5.4)
[2017-04-02 06:08] LABS: CALCIUM 8.9 mg/dL (8.8-10.2)
[2017-04-02] MEDS: DITROPAN PO SCH (08:59)
[2017-04-02] MEDS: COREG PO SCH ×2 (08:59→21:20)
[2017-04-02] MEDS: ASPIRIN PO SCH (08:59)
[2017-04-02] MEDS: SINGULAIR PO SCH (08:59)
[2017-04-02] MEDS: NEURONTIN PO SCH ×3 (08:59→16:31)
[2017-04-02] MEDS: LASIX PO SCH (08:59)
[2017-04-02] MEDS ORDERED: TYLENOL PO ONE (10:29)
[2017-04-02 10:31] LABS: BE 12.4 mmoll (-3.0-3.0); BLOOD TYPE ARTERIAL; METHB 1.6 % (0.0-1.5); MODALITY CANNULA; O2(CT) 18.9 mL/dL (15.0-23.0); PO2(98.6) 85 mmHg (60-100); SAMPLE BLOOD; SAO2 97.8 % (95.0-100.0); THB 14.2 g/dL (11.5-17.4); pH(98.6) 7.38 (7.35-7.45)
[2017-04-02 10:32] LABS: PCO2(98.6) 69 mmHg (35-45)
--- NOTE | 2017-04-02 14:19 | PROGRESS NOTE ---
DATE: 04/02/2017 SUBJECTIVE: This patient feels better today. She has been using the BiPAP machine during the night and nasal cannula during the day. She is not confused. Family members at the bedside. Today, she is complaining of hip pain and knee pain, which is chronic. OBJECTIVE: Vital Signs: Temperature 98.1 degrees, pulse 79, respiratory rate 20, blood pressure 124/65, oxygen saturations 97 on 6 L of nasal cannula. HEENT: Head normocephalic. No trauma. PERRLA. Neck: Supple. I can not see JVD because of her neck size. Central trachea. Chest: Decreased breath sounds globally. Prolonged expiatory phase. No wheezing. Abdomen: Soft, protuberant, nondistended. Extremities: Trace edema. No clubbing. No cyanosis. Neurological: The patient is alert and oriented x3. No focal deficits. LABORATORY STUDIES: WBC 9.5, hemoglobin 13.8, hematocrit 45, platelets 240,000. Sodium 142, potassium 4, chloride 95, bicarbonate 36, BUN 25, creatinine 1.1, glucose 102, calcium 8.9. ASSESSMENT AND PLAN: 1. Acute hypercapnic respiratory failure. She is still using the BiPAP machine during the night and nasal cannula during the day. At this moment, 6 L of oxygen. She is not complaining of respiratory distress. Pulmonary department is following this patient. 2. Possible recent lacunar infarct near the anterior horn of the left internal capsule. Neurology department has been consulted, and they already evaluated this patient. I do not see any deficits. 3. Acute kidney injury. This is better. I believe this is probably her baseline. 4. Urinary tract infection. Continue with Rocephin. 5. Chronic low back pain. Continue with the same treatment. 6. Hypothyroidism. She is on levothyroxine. 7. History of hypertension, aware. Continue with the same management. Stable. 8. Morbid obesity, with possible hypoventilation syndrome and sleep apnea. I talked to her about her morbid obesity, and I told her that probably she needs to consult bariatric surgery to help her with her weight. She seems to understand. CRITICAL CARE TIME: 36 minutes. cc: Des Corona MD
[2017-04-02] MEDS: PULMICORT INH SCH ×2 (14:58→21:39)
[2017-04-02] MEDS: ZOCOR PO SCH (21:20)
[2017-04-02] MEDS: ROCEPHIN 1 GM/NS 1 GM/50 ML IVPB IV SCH (21:20)
[2017-04-03] MEDS: DUONEB (A & A) INH SCH ×6 (03:26→23:23)
[2017-04-03 03:53] LABS: ALLEN TEST YES; BLOOD TYPE ARTERIAL; DRAW SITE R RADIAL; METHB 1.1 % (0.0-1.5); O2(CT) 18.6 mL/dL (15.0-23.0); PO2(98.6) 89 mmHg (60-100); SAMPLE BLOOD; SAO2 98.9 % (95.0-100.0); SRATE 20 BPM; THB 13.8 g/dL (11.5-17.4); pH(98.6) 7.42 (7.35-7.45)
[2017-04-03 03:56] LABS: MODALITY BI PAP; PCO2(98.6) 68 mmHg (35-45)
[2017-04-03] MEDS: PRILOSEC PO SCH ×2 (05:42→10:40)
[2017-04-03] MEDS: HEPARIN SUBQ SCH ×3 (05:42→21:05)
[2017-04-03] MEDS: SYNTHROID PO SCH ×2 (05:42→10:40)
[2017-04-03 06:15] LABS: ALLEN TEST YES; DRAW SITE R RADIAL
[2017-04-03] MEDS: SYMBICORT 160/4.5 MICROGM INHALER INH SCH (07:34)
[2017-04-03] MEDS: SINGULAIR PO SCH (08:33)
[2017-04-03] MEDS: ASPIRIN PO SCH (08:33)
[2017-04-03] MEDS: COREG PO SCH ×2 (08:33→21:02)
[2017-04-03] MEDS: LASIX PO SCH (08:33)
[2017-04-03] MEDS: NEURONTIN PO SCH ×3 (08:33→17:45)
[2017-04-03] MEDS: DITROPAN PO SCH (08:34)
[2017-04-03] MEDS: PULMICORT INH SCH ×3 (08:44→21:34)
[2017-04-03 09:48] LABS: CALCIUM 9.2 mg/dL (8.8-10.2); POTASSIUM 3.9 mmol/L (3.5-5.1)
--- NOTE | 2017-04-03 10:55 | Carotid Study ---
DATE: 03/31/2017 PROCEDURE: Carotid duplex imaging. REFERRING PHYSICIAN: Dr. Fischer INTERPRETING PHYSICIAN: Dr. Garrido TECH: Cameron INDICATIONS: Stroke. OBSERVED DATA RIGHT LEFT Brachial Blood Pressure Carotid Pulse Bruits: Carotid/Sub DIAGRAM OF ULTRASOUND IMAGING R L RIGHT INT EXT INT EXT LEFT Willy (cm/s) Willy (cm/s) Subclavian 92/0 Subclavian 161/0 CCA Proximal 84/15 CCA Proximal 110/27 CCA Distal 104/19 CCA Distal 88/23 Bulb 93/20 Bulb 78/25 ICA Proximal 88/27 ICA Proximal 65/17 ICA Mid 102/29 ICA Mid 105/37 ICA Distal 71/22 ICA Distal 100/33 ECA 175/11 ECA 141/16 Vertebral 82/24 Vertebral 39/14 ICA/CCA Ratio 0.98 ICA/CCA Ratio 0.96 % Stenosis 0 to 39 % Stenosis 0 to 39 FINDINGS: There is no evidence of significant plaque in either carotid system. There is antegrade vertebral flow bilaterally. PHYSICIAN INTERPRETATION: Unremarkable carotid imaging study. cc: Sukhdev Garrido MD
--- NOTE | 2017-04-03 14:59 | PROGRESS NOTE ---
DATE: 04/03/2017 SUBJECTIVE: This patient states that she is feeling better. She has been having a hard time walking because she is weak. Physical therapy is on board. She is not complaining of chest pain, nausea, vomiting, diarrhea, or constipation. OBJECTIVE: Vital Signs: Temperature 98.4 degrees, pulse 99, respiratory 15, blood pressure 109/65, oxygen saturation 100% on 6 L of nasal cannula. HEENT: Head normocephalic. No trauma. PERRLA. Neck: Supple. No JVD. No masses. Central trachea. Chest: Decreased breath sounds globally. Prolonged expiatory phase. No wheezing. Cardiovascular: Regular rate and rhythm. Abdomen: Soft, protuberant, nondistended. Extremities: Trace edema. No clubbing. No cyanosis. Neurological: The patient is alert and oriented x3. No focal neurological deficits. LABORATORY: Sodium 141, potassium 3.9, chloride 91, bicarbonate 37, BUN 21, creatinine 1, glucose 127, calcium 9.2. ASSESSMENT AND PLAN: 1. Acute hypercapnic respiratory failure. She is still using the BiPAP machine during the night and nasal cannula during the day. At this moment she is using 6 L of oxygen and she is not complaining of respiratory distress. Pulmonary department is following this patient. 2. Possible recent lacunar infarct near the anterior horn of the left internal capsule. Neurology department has been consulted and they already evaluated this patient. I do not see any deficits. 3. Acute kidney injury. This is better. Probably this is her baseline. 4. Urinary tract infection. Continue with Rocephin. 5. Chronic low back pain. Continue with the same treatment. 6. Hypothyroidism. She is on levothyroxine. 7. History of hypertension. Aware. Continue with the same management. Stable. 8. Morbid obesity with possible hypoventilation syndrome/sleep apnea. We had a conversation about her morbid obesity. I told her that probably she needs to consult palliative surgery to help her with her weight and she seems to understand. CRITICAL CARE TIME: 30 minutes. cc: Des Corona MD
[2017-04-03] MEDS: ZOCOR PO SCH (21:02)
[2017-04-03] MEDS: ROCEPHIN 1 GM/NS 1 GM/50 ML IVPB IV SCH (21:03)
[2017-04-04] MEDS: TYLENOL PO PRN ×2 (02:41→11:52)
[2017-04-04] MEDS: DUONEB (A & A) INH SCH ×7 (03:01→22:57)
[2017-04-04 04:04] LABS: MANUAL DIFF NEEDED? NO
[2017-04-04 04:07] LABS: BASO% 0.3 % (0.0-0.8); EOS# 0.79 X1000 (0.0-0.7); EOS% 6.7 % (0.0-10.0); HEMATOCRIT 44.1 % (37.0-47.0); HEMOGLOBIN 13.8 g/dL (12.0-16.0); IMM GRAN# 0.04 X1000 (0.0-0.04); IMM GRAN% 0.3 % (0.0-0.5); LYMPH% 15.4 % (20.5-51.1); MCH 29.1 PG (27-31); MCHC 31.3 g/dL (33-37); MONO# 0.96 X1000 (0.11-0.59); MONO% 8.2 % (1.7-9.3); MPV 12.3 FL (7.4-10.4); NEUT% 69.1 % (42.2-75.2); PLT 231 X1000 (130-400); RBC 4.74 XMIL (4.2-5.4)
[2017-04-04 04:34] LABS: ALLEN TEST YES; BE 15.9 mmoll (-3.0-3.0); BLOOD TYPE ARTERIAL; DRAW SITE R RADIAL; METHB 1.1 % (0.0-1.5); O2(CT) 19.3 mL/dL (15.0-23.0); PO2(98.6) 93 mmHg (60-100); SAMPLE BLOOD; SAO2 98.7 % (95.0-100.0); THB 14.3 g/dL (11.5-17.4); pH(98.6) 7.44 (7.35-7.45)
[2017-04-04 04:36] LABS: MODALITY CANNULA; PCO2(98.6) 64 mmHg (35-45)
[2017-04-04 04:42] LABS: CALCIUM 9.5 mg/dL (8.8-10.2); POTASSIUM 3.4 mmol/L (3.5-5.1)
[2017-04-04] MEDS: PRILOSEC PO SCH (06:29)
[2017-04-04] MEDS: SYNTHROID PO SCH (06:29)
[2017-04-04 07:19] LABS: MANUAL DIFF NEEDED? NO
[2017-04-04 07:22] LABS: BASO% 0.3 % (0.0-0.8); EOS% 7.1 % (0.0-10.0); HEMATOCRIT 43.1 % (37.0-47.0); HEMOGLOBIN 13.6 g/dL (12.0-16.0); IMM GRAN# 0.03 X1000 (0.0-0.04); IMM GRAN% 0.3 % (0.0-0.5); LYMPH# 1.86 X1000 (1.2-3.4); LYMPH% 16.6 % (20.5-51.1); MCH 29.3 PG (27-31); MCHC 31.6 g/dL (33-37); MCV 92.9 FL (81-99); MONO# 0.91 X1000 (0.11-0.59); MONO% 8.1 % (1.7-9.3); MPV 12.1 FL (7.4-10.4); NEUT% 67.6 % (42.2-75.2); PLT 217 X1000 (130-400); RBC 4.64 XMIL (4.2-5.4)
[2017-04-04] MEDS: SYMBICORT 160/4.5 MICROGM INHALER INH SCH ×2 (07:34→07:35)
[2017-04-04 07:40] LABS: AGAP 13; BUN 20 mg/dL (8-22); CALCIUM 9.2 mg/dL (8.8-10.2); CHLORIDE 91 mmol/L (98-107); COSMO 287; POTASSIUM 3.2 mmol/L (3.5-5.1); SODIUM 142 mmol/L (136-145); TCO2 38 mmol/L (25-35)
[2017-04-04] MEDS ORDERED: KLOR-CON PO ONE (07:51)
[2017-04-04] MEDS: DITROPAN PO SCH (07:59)
[2017-04-04] MEDS: COREG PO SCH ×2 (07:59→20:37)
[2017-04-04] MEDS: SINGULAIR PO SCH (07:59)
[2017-04-04] MEDS: ASPIRIN PO SCH (07:59)
[2017-04-04] MEDS: LASIX PO SCH (08:00)
[2017-04-04] MEDS: NEURONTIN PO SCH ×3 (08:00→17:05)
[2017-04-04] MEDS: HEPARIN SUBQ SCH ×3 (08:00→20:37)
[2017-04-04] MEDS: PULMICORT INH SCH ×3 (10:54→19:30)
--- NOTE | 2017-04-04 14:45 | PROGRESS NOTE ---
DATE: 04/04/2017 SUBJECTIVE: This patient is feeling better, she is still using 5 L of oxygen, I asked Respiratory Therapy to walk with her to see if the oxygen saturation dropped and apparently the oxygen saturation was around 90%-92%. I will monitor this patient for 1 more night and I will decrease the oxygen, secondary social studies teacher is trying to find BiPAP machine for this patient. Hopefully tomorrow if everything is set up for this patient including the BiPAP machine she can go home. OBJECTIVE: Vital Signs: Temperature 97.7 degrees, pulse 81, respiratory rate 16, blood pressure 115/58, oxygen saturation 98% on 5 L of nasal cannula. General: Morbidly obese patient in no acute distress. HEENT: Head normocephalic. No trauma. PERRLA. Neck: Supple. No JVD. No masses. Central trachea. Chest: Decreased breath sounds globally. Prolonged expiatory phase. No wheezing. Cardiovascular: RRR. Abdomen: Soft, protuberant, nondistended. Extremities: Trace edema. No clubbing. No cyanosis. Neurological: The patient is alert and oriented x3. No focal deficits. LABORATORY: WBC 11.7, hemoglobin 13.8, hematocrit 44.1, platelets 231,000. Sodium 142, potassium 3.4, chloride 89, bicarbonate 40, BUN 20, creatinine 1, glucose 118, calcium 9.5. ASSESSMENT AND PLAN: 1. Acute hypercapnic respiratory failure. She is still using the BiPAP machine during the night and during the day she has been using 5 L of oxygen, I think we can decrease the oxygen, also she walked today without oxygen and the oxygen saturation was around 90%-92%, so probably this patient can be discharged home tomorrow if we can provide the BiPAP machine, the secondary social studies teacher is working on this. 2. Possible recent lacunar infarct near the anterior horn of the left internal capsule. Neurology Department has been consulted and they already evaluated this patient. I do not see any deficits. 3. Acute kidney injury. Resolved. This is her baseline. 4. Urinary tract infection. Continue with Rocephin. 5. Chronic low back pain. Continue with the same treatment. 6. Hypothyroidism. Continue with levothyroxine. 7. History of hypertension. Aware. Continue with the same management. Stable. 8. Morbid obesity with possible hypoventilation syndrome/sleep apnea. This patient needs a BiPAP machine. The secondary social studies teacher is trying to get one of these to go home. I talked to her and told her that probably she needs to consult Bariatric Surgery to help her with her weight and she seems to understand. 9. Hypokalemia. Potassium has been replaced. I do believe this patient is close to go home, probably tomorrow, we need a BiPAP machine so she can go. Because she has been using a BiPAP machine here during the night, probably we do not need home oxygen for now, and she needs to get an appointment with Bariatric Surgery to help her to lose weight. cc: Des Corona MD
[2017-04-04] MEDS: ROCEPHIN 1 GM/NS 1 GM/50 ML IVPB IV SCH (20:37)
[2017-04-04] MEDS: ZOCOR PO SCH (20:37)
[2017-04-05] MEDS: DUONEB (A & A) INH SCH ×6 (03:20→23:08)
[2017-04-05] MEDS: HEPARIN SUBQ SCH ×3 (06:01→20:50)
[2017-04-05] MEDS: SYNTHROID PO SCH (06:01)
[2017-04-05] MEDS: PRILOSEC PO SCH (06:01)
[2017-04-05 07:26] LABS: MANUAL DIFF NEEDED? NO
[2017-04-05 07:32] LABS: BASO% 0.4 % (0.0-0.8); EOS# 0.89 X1000 (0.0-0.7); EOS% 7.5 % (0.0-10.0); HEMATOCRIT 44.8 % (37.0-47.0); IMM GRAN# 0.05 X1000 (0.0-0.04); IMM GRAN% 0.4 % (0.0-0.5); LYMPH# 1.86 X1000 (1.2-3.4); LYMPH% 15.6 % (20.5-51.1); MCHC 31.3 g/dL (33-37); MCV 92.8 FL (81-99); MONO# 0.96 X1000 (0.11-0.59); MONO% 8.1 % (1.7-9.3); MPV 12.5 FL (7.4-10.4); PLT 228 X1000 (130-400); RBC 4.83 XMIL (4.2-5.4)
[2017-04-05 07:48] LABS: CALCIUM 9.3 mg/dL (8.8-10.2); POTASSIUM 3.3 mmol/L (3.5-5.1)
[2017-04-05] MEDS: SYMBICORT 160/4.5 MICROGM INHALER INH SCH (08:07)
[2017-04-05] MEDS: PULMICORT INH SCH ×3 (08:07→20:11)
[2017-04-05] MEDS: LASIX PO SCH (09:49)
[2017-04-05] MEDS: SINGULAIR PO SCH (09:49)
[2017-04-05] MEDS: COREG PO SCH ×2 (09:50→20:49)
[2017-04-05] MEDS: ASPIRIN PO SCH (09:50)
[2017-04-05] MEDS: DITROPAN PO SCH (09:50)
[2017-04-05] MEDS: NEURONTIN PO SCH ×3 (09:50→20:49)
--- NOTE | 2017-04-05 18:02 | PROGRESS NOTE ---
DATE: 04/05/2017 SUBJECTIVE: Patient is feeling fine. Now he is on room air, and O2 saturation according to nursing staff fluctuating between 90 and 95 at rest. OBJECTIVE: Vitals: Temperature 98.4 degrees, heart rate 81, respiratory rate 17, blood pressure 126/56, O2 saturation 97% on room air. General: A morbidly obese, 67-year-old female lying in bed, in no acute distress. HEENT: Head is normocephalic, atraumatic. Anicteric sclerae and pale conjunctivae. Mucous membranes moist. Neck: Supple. No JVD noted. No carotid bruits. Cardiovascular: S1, S2 heard. No murmurs, gallops, or rubs. Regular rate and rhythm. Respiratory: Decreased breath sounds globally with prolonged respiratory phase, but there is no wheezing, no crackles. Patient is not using any accessory muscles. Abdomen: Soft nondistended bowel sounds present. No organomegaly. Extremities: No clubbing, cyanosis, and mild edema. Peripheral pulses present in both legs. Neurological: Patient alert oriented x3. Moves 4 extremities. LABORATORY DATA: White cell count 18.99, hemoglobin 14, hematocrit 44.8, platelets 228,000. BP remarkable for potassium 3.3. ASSESSMENT AND PLAN: 1. Acute hypercapnic respiratory failure. Right now, the patient is able to be on room air with O2 saturation ranging between 90 and 95. I do not think the O2 saturations are going to drop when she starts walking around. Because of possible obesity hypoventilation syndrome, she will need a BiPAP machine. We are going to consult social scientist tomorrow to get the machine for her. 2. Possible recent lacunar infarct. Clinically, she is doing fine with no new neurological symptoms. There are no deficits noted. 3. Acute kidney injury, resolved. 4. Urinary tract infection, we will continue with Rocephin. 5. Chronic low back pain. We will continue with the same pain medication. 6. Hypothyroidism. We will continue with levothyroxine. 7. History of hypertension. Blood pressure is okay. We will continue with the same management. 8. Morbid obesity with possible hypoventilation syndrome and sleep apnea. need for BiPAP machine before goes home. We will contact the social scientist to make it happen. 9. Hypokalemia, stable. 10. Disposition. Patient will go home as soon as we can get a BiPAP machine for her. cc: Ronnell June MD
[2017-04-05] MEDS: ROCEPHIN 1 GM/NS 1 GM/50 ML IVPB IV SCH (20:49)
[2017-04-05] MEDS: ZOCOR PO SCH (20:50)
[2017-04-05] MEDS: TYLENOL PO PRN (23:56)
[2017-04-06] MEDS: DUONEB (A & A) INH SCH ×4 (03:38→15:38)
[2017-04-06 05:25] LABS: ALLEN TEST YES; BE 17.1 mmoll (-3.0-3.0); BLOOD TYPE ARTERIAL; DRAW SITE R RADIAL; METHB 0.8 % (0.0-1.5); O2(CT) 17.7 mL/dL (15.0-23.0); PO2(98.6) 74 mmHg (60-100); SAMPLE BLOOD; THB 13.2 g/dL (11.5-17.4); pH(98.6) 7.45 (7.35-7.45)
[2017-04-06 05:27] LABS: MODALITY BI PAP
[2017-04-06 05:28] LABS: PCO2(98.6) 64 mmHg (35-45)
[2017-04-06] MEDS: HEPARIN SUBQ SCH (06:22)
[2017-04-06] MEDS: PRILOSEC PO SCH (06:23)
[2017-04-06] MEDS: SYNTHROID PO SCH (06:23)
[2017-04-06] MEDS: PULMICORT INH SCH ×2 (07:55→15:38)
[2017-04-06] MEDS: SYMBICORT 160/4.5 MICROGM INHALER INH SCH (07:59)
[2017-04-06] MEDS: COREG PO SCH (09:09)
[2017-04-06] MEDS: ASPIRIN PO SCH (09:09)
[2017-04-06] MEDS: DITROPAN PO SCH (09:09)
[2017-04-06] MEDS: LASIX PO SCH (09:09)
[2017-04-06] MEDS: NEURONTIN PO SCH (09:09)
[2017-04-06] MEDS: SINGULAIR PO SCH (09:09)
[2017-04-06 12:15] VITALS: BP 103/46
--- NOTE | 2017-04-06 17:55 | DISCHARGE SUMMARY ---
ADMISSION DATE: 03/30/2017 DISCHARGE DATE: 04/06/2017 DISCHARGE DIAGNOSES: 1. Acute hypercapnic respiratory failure, improved. 2. Acute kidney injury, resolved. 3. Urinary tract infection. 4. Chronic low back pain. 5. Hypothyroidism. 6. History of hypertension. 7. Morbidly obesity, with possible obesity hypoventilation syndrome and sleep apnea. 8. Hypokalemia, resolved. PROCEDURES: 1. Pulmonary arteriogram, done in the emergency room, showed no acute disease. No pulmonary embolus. 2. Head CT showed no hemorrhage. There was a questionable recent lacunar infarct near to the anterior horn on the left internal capsule. 3. Carotid Doppler study showed no evidence of significant plaque in either carotid system. 4. Echocardiogram showed a technically-difficult exam, but left ventricular function appears to be normal, as well as the aortic valve. Medications. CONSULTATIONS: 1. Dr. Hutchison from Neurology. 2. Dr. Gallagher from Pulmonary. 3. Dr. Russell from Cardiology. HOSPITAL COURSE: This patient was admitted to the hospital because she was not feeling well. She was breathing faster, and she was found to be hypotensive in the ER, with hypoxemia. The patient was placed on BiPAP, and that helped. Because of acute hypercapnic respiratory failure, we placed this patient on BiPAP, and she was responding very well. The problem with this patient is that we cannot provide any BiPAP machine to her, unless this patient got sleep studies. We are going to arrange one for her before she leaves. For acute kidney injury, secondary to mild fluid volume depletion, that condition has been corrected completely here in the hospital. For UTI, she was placed initially on Rocephin, and that grew Klebsiella pneumonia. The patient has received, so far here, 1 week of antibiotics. I do not think she needs any more antibiotics. For chronic back pain, will continue with the home medications. For hypothyroidism, will continue with levothyroxine. She was doing fine. For blood pressure, we made some changes to her current treatment. So, at the time of discharge, blood pressure was fine. The patient is being discharged, in stable condition. She is going to have a sleep studies performed from Dr. Gallagher. DISCHARGE PHYSICAL EXAMINATION: Vital signs: Temperature 97.6 degrees, heart rate 73, respiratory rate 20, blood pressure 103/46, O2 saturation 92% on 2 L nasal cannula. General Examination: This is a morbidly-obese, 67-year-old, female. Lying in bed, in no acute distress. HEENT: Head is normocephalic and atraumatic. Anicteric sclerae and pale conjunctivae. Mucous membranes moist. Neck: Supple. No JVD noted. No carotid bruits. No lymphadenopathy. No thyromegaly. Cardiovascular: S1, S2 heard. No murmurs, gallops, or rubs. Regular rate and rhythm. Respiratory: Decreased breath sounds globally. The patient is not using any accessory muscles or having work of breathing. Abdomen: Soft, nontender to palpation. Bowel sounds present. No organomegaly. No clubbing, cyanosis, or edema. Extremities: Peripheral pulses present in both legs. Neurologic: The patient alert oriented x3. Able to move 4 extremities. Cranial nerves 2-12 are grossly normal. DISCHARGE DISPOSITION: To home, to self-care. FOLLOWUP: Dr. Blue in a couple weeks. Follow up with Dr. Felix the [facility]. LIST OF MEDICATIONS: 1. Lasix 40 mg, 1 tablet p.o. daily. 2. Aspirin 81 mg, 1 tablet p.o. daily. 3. Singular 10 mg, 1 tablet p.o. daily. 4. Formoterol 12 mcg b.i.d. 5. Budesonide 0.5 mg inhalation 3 times per day. 6. Symbicort b.i.d. 7. Simvastatin 40 mg p.o. at bedtime. 8. Oxybutynin 5 mg, 1 tablet p.o. daily. 9. Coreg, 1 tablet p.o. daily. 10. Omeprazole 20 mg, 1 tablet p.o. daily. 11. Chlorthalidone 25 mg, 1 tablet p.o. daily. 12. Gabapentin 300 mg p.o. 3 times per day. 13. Clobetasol 50 mL topical. 14. DuoNeb 3 mL by inhalation 3 times daily. 15. Losartan 100 mg, 1 tablet p.o. daily. 16. Levothyroxine 175 mcg, 1 tablet p.o. daily. cc: Ronnell June MD
== END 2017-04-06 16:00 | disposition home health service (06) ==
LOC: SUPCPDRO → ED 14:35 → SUATTDRO 20:21 → 3S 20:21 → 3N 04-04 03:28
PROVIDERS: ATTEND Internal Medicine

== ENCOUNTER 2019-10-01 03:28 | Inpatient (IN) ==
--- NOTE | 2019-10-01 03:36 | PROVIDER DOCUMENTATION ---
HPI-Respiratory General - General Stated Complaint: wheezing Time Seen by Provider: 10/01/19 03:32 Source: patient, EMS Allergies/Adverse Reactions: Patient Allergies Allergy/AdvReac Type Severity Reaction Status Date / Time bee venom protein (honey bee) Allergy Severe ANAPHYLAXIS Verified 10/25/18 09:12 codeine Allergy ITCHING Verified 10/25/18 09:12 latex Allergy Blisters Verified 10/25/18 09:12 meperidine [From Demerol] Allergy ANAPHYLAXIS Verified 10/25/18 09:12 Home Medications: Home Medication List Medication Instructions Recorded Confirmed Last Taken Type Losartan Potassium 100 mg PO DAILY 03/30/17 03/13/19 03/12/19 09:00 History Omeprazole 40 mg PO DAILY 03/30/17 03/13/19 03/12/19 09:00 History Levothyroxine [Synthroid] 175 microgm PO DAILY 03/31/17 03/13/19 03/12/19 09:00 History Metformin [Glucophage] 500 mg PO QHS 10/25/18 03/13/19 03/12/19 18:00 History Mirabegron [Myrbetriq] 50 mg PO DAILY 10/25/18 03/13/19 03/12/19 09:00 History Paroxetine HCl 30 mg PO DAILY 10/25/18 03/13/19 03/12/19 09:00 History Pramipexole [Mirapex] 0.5 mg PO QHS 10/25/18 03/13/19 03/12/19 18:00 History ATORVAstatin [Lipitor] 20 mg PO HS 03/04/19 03/13/19 03/12/19 09:00 History Diltiazem C.d. [Cardizem C.d] 180 mg PO DAILY 03/04/19 03/13/19 03/13/19 06:00 History Multivit-Min/FA/Lycopen/Lutein 1 ea PO DAILY 03/04/19 03/13/19 03/12/19 09:00 History [Centrum Silver Tablet] Naproxen 500 mg PO PRN PRN 03/04/19 03/04/19 Unknown History Oxybutynin [Ditropan] 5 mg PO BID 03/04/19 03/13/19 03/12/19 21:00 History Ranitidine [Zantac] 300 mg PO HS 03/04/19 03/13/19 03/12/19 18:00 History Sucralfate 1 gm PO 4XDAY 03/04/19 03/13/19 03/11/19 06:00 History - History of Present Illness-Resp Nature of Presenting Problem: 69yi morbidly obese female, awoke this evening with SOB and hot flashes, called 911. EMS found patient tachypneic and wheezing, so they gave her one albuterol neb en route. Patient states she wears CPAP at night and also uses O2 3L by NC at night. Has cough and sweating. No pain. No weight gain recently. Also has history of CHF and has significant lower extremity edema. Quality of Pain: reports: none Severity in ED: reports: moderate Onset/Duration: reports: abrupt, just prior to arrival Timing: reports: still present, improving, constant Context: reports: multiple patients with similar complaints, recent URI Exposure: reports: unknown cause Cough Quality/Degree: reports: mild, dry cough Episode Frequency: occasional episodes (had pneumonia last march) Current Respiratory Medication Therapy: Initiated see nurses note Modifying Factors: improves with: albuterol nebulizer, oxygen, sitting upright. worse with: exertion Associated Symptoms: reports: cough, lightheadedness, shortness of breath, sweaty, wheezing Similar Symptoms Previously?: Yes Recently seen or treated by another doctor?: No Review of Systems - Adult - REVIEW OF SYSTEMS - ADULT Constitutional: reports: no symptoms reported Eyes: reports: no symptoms reported Ears, Nose, Mouth & Throat: reports: no symptoms reported Cardiovascular: reports: no symptoms reported Respiratory: reports: no symptoms reported Gastrointestinal: reports: no symptoms reported Genitourinary: reports: no symptoms reported Musculoskeletal: reports: no symptoms reported Integumentary: reports: no symptoms reported Neurological: reports: no symptoms reported Psychiatric: reports: no symptoms reported Endocrine: reports: no symptoms reported Hematologic/Lymphatic: reports: no symptoms reported Allergic/Immunologic: reports: no symptoms reported All Other Systems: Reviewed and Negative Past History - Adult - PAST MEDICAL HISTORY-ADULT Review of Records: reports: Old Records Reviewed, Nursing Assessment Review, Medications Reviewed, Social history reviewed & non-contributory. Major Childhood Illnesses: reports: denies history Cardiovascular: reports: CHF, HTN Respiratory: reports: asthma, pneumonia, other (obstructive sleep apnea/obesity hypoventilation syndrome; chronic respiratory failure on intermitent home oxygen use) Gastrointestinal: reports: GERD Obstetrical/Gynecological: reports: denies history Genitourinary: reports: denies history Musculoskeletal: reports: arthritis Neurological: reports: denies history Psychiatric: reports: depression Endocrine/Immune: reports: thyroid disorder Other Conditions: reports: denies history - PRIOR SURGERIES/PROCEDURES Surgical/Procedure History: reports: cholecystectomy, hysterectomy, joint replacement - IMMUNIZATION STATUS Childhood Immunizations: See Nurse Assessment Flu Vaccine: See Nurse Assessment - FAMILY HISTORY Family History: reviewed, not pertinent - SOCIAL HISTORY Smoking: non-smoker Substance Use: none/never Alcohol Use Frequency: rarely Living Situation: family Physical Exam-General - PHYSICAL EXAM-ADULT Initial Vital Signs Reviewed: Yes (VSSAF) - CONSTITUTIONAL General Appearance: appears well, alert, no apparent distress - EYES Eyes: PERRL/EOMI, pink conjunctivae - HEAD, EARS, NOSE, MOUTH & THROAT HENMT: normocephalic/atraumatic, moist mucous membranes, normal ENT inspection - NECK Neck: full range of motion, supple, normal inspection - RESPIRATORY Respiratory: chest non-tender, no pleuratic chest pain, no respiratory distress, no accessory muscle use, dull on percussion, prolonged expiration - CARDIOVASCULAR Cardiovascular: normal peripheral pulses, regular rate, rhythm, no edema, no gallop, no JVD, no murmur - GASTROINTESTINAL (ABDOMEN) Abdominal Exam: non tender, soft - LYMPHATIC Lymphatic: no adenopathy - MUSCULOSKELETAL Back Exam: normal inspection, no vertebral tenderness. 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 as tested, grossly normal, no motor/sensory deficits - PSYCHIATRIC Psych/Mental Status: normal mood/affect, normal thought content, normal thought process, oriented x 3 Progress - PLAN OF CARE/RESULTS Progress/Plan/Lab Results: Vital Signs - 8 hr 10/01/19 03:52 10/01/19 04:05 Temperature 98.8 F Pulse Rate 85 74 Respiratory Rate 16 16 Blood Pressure 124/56 O2 Sat by Pulse Oximetry 97 97 10/01/19 04:05 Influenza Screen - Final Nasopharyngeal Laboratory Results - last 24 hr 10/01/19 10/01/19 10/01/19 03:37 03:48 03:49 WBC 12.23 H RBC 5.36 Hgb 15.0 Hct 48.7 H MCV 90.9 MCH 28.0 MCHC 30.8 L RDW Std Deviation 16.6 H Plt Count 382 MPV 12.8 H Immature Gran % (Auto) 0.3 Neut % (Auto) 72.1 Lymph % (Auto) 16.0 L George % (Auto) 5.9 Eos % (Auto) 5.0 Baso % (Auto) 0.7 Immature Gran # (Auto) 0.04 Neut # (Auto) 8.82 H Lymph # (Auto) 1.96 George # (Auto) 0.72 H Eos # (Auto) 0.61 Baso # (Auto) 0.08 PT INR PTT (Actin FS) Specimen Type ARTERIAL Sample Site R RADIAL pH 7.36 pCO2 56 H* pO2 49 L* HCO3 28.1 H Base Excess 4.5 H Oxyhemoglobin 86.2 L* ABG O2 Sat (Calculated) 18.0 ABG O2 Saturation 88.9 L ABG Carboxyhemoglobin 2.30 ABG Methemoglobin 0.7 Júnior Test YES A-a O2 Difference 109.0 Total Hemoglobin 14.9 Lactate 1.80 Liter Flow 3.0 Blood Gas Modality CANNULA FiO2 % 32.0 Sodium Potassium Chloride Carbon Dioxide Anion Gap BUN Creatinine Estimated GFR/1.73 m2 BUN/Creatinine Ratio Glucose POC Glucose 97 Calculated Osmolality Calcium Magnesium Total Bilirubin AST ALT Alkaline Phosphatase Creatine Kinase Troponin T High Sens [id number]-Ktxqcyejlex Pept Total Protein Albumin Globulin Albumin/Globulin Ratio Plasma Lactate Acetone Level 10/01/19 10/01/19 10/01/19 03:49 03:49 03:49 WBC RBC Hgb Hct MCV MCH MCHC RDW Std Deviation Plt Count MPV Immature Gran % (Auto) Neut % (Auto) Lymph % (Auto) George % (Auto) Eos % (Auto) Baso % (Auto) Immature Gran # (Auto) Neut # (Auto) Lymph # (Auto) George # (Auto) Eos # (Auto) Baso # (Auto) PT 12.5 INR 0.93 PTT (Actin FS) 28.6 Specimen Type Sample Site pH pCO2 pO2 HCO3 Base Excess Oxyhemoglobin ABG O2 Sat (Calculated) ABG O2 Saturation ABG Carboxyhemoglobin ABG Methemoglobin Júnior Test A-a O2 Difference Total Hemoglobin Lactate Liter Flow Blood Gas Modality FiO2 % Sodium 142 Potassium 4.6 Chloride 98 Carbon Dioxide 30 Anion Gap 14 BUN 10 Creatinine 1.1 H Estimated GFR/1.73 m2 49 BUN/Creatinine Ratio 9 Glucose 142 H POC Glucose Calculated Osmolality 285 Calcium 9.3 Magnesium 1.3 L Total Bilirubin 0.44 AST 21 ALT 14 Alkaline Phosphatase 81 Creatine Kinase 61 Troponin T High Sens [id number] Pept 116 Total Protein 7.4 Albumin 3.9 Globulin 3.5 Albumin/Globulin Ratio 1.1 Plasma Lactate Acetone Level NEGATIVE 10/01/19 10/01/19 03:49 03:49 WBC RBC Hgb Hct MCV MCH MCHC RDW Std Deviation Plt Count MPV Immature Gran % (Auto) Neut % (Auto) Lymph % (Auto) George % (Auto) Eos % (Auto) Baso % (Auto) Immature Gran # (Auto) Neut # (Auto) Lymph # (Auto) George # (Auto) Eos # (Auto) Baso # (Auto) PT INR PTT (Actin FS) Specimen Type Sample Site pH pCO2 pO2 HCO3 Base Excess Oxyhemoglobin ABG O2 Sat (Calculated) ABG O2 Saturation ABG Carboxyhemoglobin ABG Methemoglobin Júnior Test A-a O2 Difference Total Hemoglobin Lactate Liter Flow Blood Gas Modality FiO2 % Sodium Potassium Chloride Carbon Dioxide Anion Gap BUN Creatinine Estimated GFR/1.73 m2 BUN/Creatinine Ratio Glucose POC Glucose Calculated Osmolality Calcium Magnesium Total Bilirubin AST ALT Alkaline Phosphatase Creatine Kinase Troponin T High Sens 16 Ioe-U-Svfnxzvpveq Pept Total Protein Albumin Globulin Albumin/Globulin Ratio Plasma Lactate 2.6 H Acetone Level Orders Category Date Time Status Cardiac Monitoring DIRECTED Care 10/01/19 03:36 Active Oxygen Therapy- ED Nursing DIRECTED Care 10/01/19 03:36 Active Saline Loc NOW Care 10/01/19 03:36 Active CHEST-PORTABLE [RAD] Stat Exams 10/01/19 03:38 Taken ABG [RESP] Routine Lab 10/01/19 03:37 Completed ACETONE SERUM [CHEM] Stat Lab 10/01/19 03:49 Completed BLOOD CULTURE [BLDCUL] Stat Lab 10/01/19 03:41 Results CBC WITH ELECTRONIC DIFF [HEME] Stat Lab 10/01/19 03:49 Completed CK PROFILE [SP CHEM] Stat Lab 10/01/19 03:49 Completed COMPREHENSIVE METABOLIC PANEL [CHEM] Stat Lab 10/01/19 03:49 Completed INFLUENZA SCREEN A/B Stat Lab 10/01/19 04:05 Completed LACTATE, PLASMA [CHEM] Stat Lab 10/01/19 03:49 Completed MAGNESIUM [CHEM] Stat Lab 10/01/19 03:49 Completed PRO B-NATRIURETIC PEPTIDE Stat Lab 10/01/19 03:49 Completed PROTIME WITH INR [COAG] Stat Lab 10/01/19 03:49 Completed PTT [COAG] Stat Lab 10/01/19 03:49 Completed SPUTUM CULTURE WITH GRAM STAIN [RM] Stat Lab 10/01/19 03:37 Uncollected TROPONIN T HIGH SENSITIVITY Stat Lab 10/01/19 03:49 Completed 0.9% Sodium Chloride Inj [Ns] 1,000 ml Med 10/01/19 03:38 Discontinued IV 999 mls/hr Albuterol 2.5MG/Ipratrop 0.5MG [Duoneb (A & A)] Med 10/01/19 03:38 Discontinued 3 ml INH NOW ONE Azithromycin 500 mg/Ns [Zithromax 500 mg/Ns] Med 10/01/19 04:34 Active 500 mg in 250 ml IV NOW CefTRIAXONE [Rocephin] 1 gm Med 10/01/19 04:34 Discontinued 0.9% Sodium Chloride Inj [Ns] 50 ml IV NOW Methylprednisolone Sod Succ [Solu-Medrol] Med 10/01/19 03:38 Discontinued 125 mg IV NOW ONE Aerosol Treatments Routine Oth 10/01/19 03:38 Completed Aerosol Treatments Stat Oth 10/01/19 03:38 Completed CP/SOB/Palp >45 yrs of Age Stat Oth 10/01/19 03:36 Ordered Oxygen Device Stat Oth 10/01/19 04:41 Active EKG [EKG] Stat Ther 10/01/19 03:36 Ordered Result Diagrams: 10/01/19 03:49 10/01/19 03:49 - REASSESSMENT Reassessment #1 Time Reassessed: 04:40 Status: improving (Given duoneb, O2 increased, given solumedrol, rocephin and zithromax) - EKG 1 Time of EKG reading by physician:: 05:16 EKG Read and Signed by:: Michael Hernandez EKG Interpretation (*Must complete 3 of following elements*): Abnormal Rate: 83 Rhythm: NSR Delano: normal QRS: poor R wave progression, other (Ventricular Quadrigemeny) ST Wave: non-specific ST changes - XRAY 1 XRAY Study: Chest Impression: Abnormal (Read by me at 0445: Underpenetrated, massive CM, no definite infiltrate, increased vascular markings.) - CONSULTS/PCP/HOSPITALIST Notification #1 *Consult/PCP/Hospitalist*: Dr. Aleksey root at 0505 Time Discussed: 05:15 Consult Disposition: Will see in ED, Admit Departure - Departure Date of Disposition Decision: 10/01/19 Time of Disposition Decision: 05:05 DIAGNOSIS: Respiratory distress, acute, Acute respiratory failure with hypoxia and hypercarbia Disposition: ADMITTED INPATIENT 09 Certified Medical Emergency: Emergent Condition: Fair Referrals and Follow-Ups: Winston Arteaga MD [Primary Care Provider] - - Critical Care Note This patient required my direct & personal management of CC.: Yes Total Time (mins): 35 Critical Care Statement: This patient required my direct personal management to treat or rule out processes, the absence of which, could potentiallly result in sudden, clinically significant life or limb threatening deterioration. Attestation - Physician/ RADHA Attestation Patient care was provided by Advanced Practice Provider:: No The physician spent face to face time with patient:: Yes Advanced Practice Provider documentation review:: Supervising physician onsite and consulted in the evaluation and care of this patient. The physician did have a face to face encounter with the patient.
[2019-10-01] MEDS ORDERED: NS 1,000 ML IV ONE (03:38)
[2019-10-01] MEDS ORDERED: SOLU-MEDROL IV ONE (03:38)
[2019-10-01] MEDS: DUONEB (A & A) INH ONE (04:04)
[2019-10-01 04:07] LABS: BASO# 0.08 X1000 (0.0-0.2); BASO% 0.7 % (0.0-0.8); EOS# 0.61 X1000 (0.0-0.7); HEMATOCRIT 48.7 % (37.0-47.0); IMM GRAN# 0.04 X1000 (0.0-0.04); IMM GRAN% 0.3 % (0.0-0.5); LYMPH# 1.96 X1000 (1.2-3.4); MCHC 30.8 g/dL (33-37); MCV 90.9 FL (81-99); MONO# 0.72 X1000 (0.11-0.59); MONO% 5.9 % (1.7-9.3); MPV 12.8 FL (7.4-10.4); NEUT# 8.82 X1000 (1.4-6.5); NEUT% 72.1 % (42.2-75.2); PLT 382 X1000 (130-400); RBC 5.36 XMIL (4.2-5.4); RDW 16.6 % (11.5-14.5); WBC 12.23 X1000 (4.8-10.8)
[2019-10-01 04:18] LABS: ALLEN TEST YES; BE 4.5 mmoll (-3.0-3.0); BLOOD TYPE ARTERIAL; HCO3-(ACT) 28.1 mmoll (20.0-26.0); METHB 0.7 % (0.0-1.5); SAMPLE BLOOD; SAO2 88.9 % (95.0-100.0); THB 14.9 g/dL (11.5-17.4); pH(98.6) 7.36 (7.35-7.45)
[2019-10-01 04:19] LABS: MODALITY CANNULA
[2019-10-01 04:21] LABS: PCO2(98.6) 56 mmHg (35-45); PO2(98.6) 49 mmHg (60-100)
[2019-10-01 04:22] LABS: O2HB 86.2 % (95.0-99.0)
[2019-10-01] MEDS ORDERED: ZITHROMAX 500 MG/NS 500 MG/250 ML IVPB IV ONE (04:34)
[2019-10-01] MEDS ORDERED: ROCEPHIN 1 GM in NS 50 ML IV ONE (04:34)
[2019-10-01 04:49] LABS: INR 0.93; PROTIME 12.5 Seconds (11.0-16.0)
[2019-10-01 04:50] LABS: PTT 28.6 Seconds (22.3-41.8)
[2019-10-01 04:54] LABS: AGAP 14; ALB/GLOB RATIO 1.1; ALBUMIN 3.9 g/dL (3.5-5.0); ALKALINE PHOSPHATASE 81 U/L (32-104); BUN 10 mg/dL (8-22); CALCIUM 9.3 mg/dL (8.8-10.2); CHLORIDE 98 mmol/L (98-107); CK PROFILE 61 U/L (24-173); COSMO 285; CREATININE 1.1 mg/dL (0.5-0.9); ESTIMATED GFR 49; GLUCOSE 142 mg/dL (70-104); GOT 21 U/L (10-30); GPT 14 U/L (10-36); MAGNESIUM 1.3 mg/dL (1.5-2.7); POTASSIUM 4.6 mmol/L (3.5-5.1); SODIUM 142 mmol/L (136-145); TCO2 30 mmol/L (25-35); TOTAL BILIRUBIN 0.44 mg/dL (0.20-1.00); TOTAL PROTEIN 7.4 g/dL (6.3-8.3)
[2019-10-01 05:09] LABS: ACETONE SERUM NEGATIVE (NEGATIVE)
[2019-10-01] MEDS ORDERED: MAGNESIUM SULFATE 2 GM/S.W.I. 2 GM/50 ML IVPB IV ONE (05:22)
--- NOTE | 2019-10-01 06:48 | Diag Imaging Result Doc PS360 ---
CHEST-PORTABLE - 10/01/2019 INDICATION: sob COMPARISON: 04/16/2018 FINDINGS: There is cardiomegaly and pulmonary vascular congestion. No infiltrates or edema. No large pleural effusion. IMPRESSION: Cardiomegaly and pulmonary vascular congestion. Electronically signed by Isaiah Dior 10/01/2019 6:46 AM
--- NOTE | 2019-10-01 09:15 | EKG Report ---
Test Performed on : 10/01/2019 05:10:21 AM Test Reason : SOB Blood Pressure : / mmHG Vent. Rate : 083 BPM Atrial Rate : 083 BPM P-R Int : 158 ms QRS Dur : 082 ms QT Int : 380 ms P-R-T Axes : 038 080 137 degrees QTc Int : 446 ms Sinus rhythm. with frequent premature ventricular complexes. Cannot rule out Anterior infarct , age undetermined Abnormal ECG When compared with ECG of 04-MAR-2019 10:49, Nonspecific T wave abnormality now evident in Inferior leads Unconfirmed Result
[2019-10-01] MEDS ORDERED: CARDIZEM CD PO SCH (09:56)
[2019-10-01] MEDS ORDERED: TYLENOL PO PRN (09:56)
[2019-10-01] MEDS ORDERED: DUONEB (A & A) INH PRN (09:56)
[2019-10-01] MEDS: DUONEB (A & A) INH SCH ×5 (10:00→23:35)
[2019-10-01 10:24] LABS: ALLEN TEST YES; BE 2.6 mmoll (-3.0-3.0); BLOOD TYPE ARTERIAL; HCO3-(ACT) 26.8 mmoll (20.0-26.0); MODALITY CANNULA; O2(CT) 20.8 mL/dL (15.0-23.0); O2HB 93.5 % (95.0-99.0); PO2(98.6) 70 mmHg (60-100); SAMPLE BLOOD; SAO2 95.9 % (95.0-100.0); THB 15.8 g/dL (11.5-17.4); pH(98.6) 7.36 (7.35-7.45)
[2019-10-01 10:25] LABS: PCO2(98.6) 52 mmHg (35-45)
--- NOTE | 2019-10-01 10:27 | HISTORY AND PHYSICAL ---
PRIMARY CARE PROVIDER: Dr. Winston Arteaga. CHIEF COMPLAINT: Shortness of breath, hot flashes. HISTORY OF PRESENT ILLNESS: Ms. Corona is a morbidly obese, 69-year-old, female with a body mass index of 55, sleep apnea, hypoventilation syndrome, hypertension, GERD, depression, hypothyroidism, diabetes mellitus, neuropathy. She reports around 8 o'clock last night, she started having these hot flashes run through her body associated with some shortness of breath. She called EMS about 8:45, started feeling better, and then again around 2:30 in the morning, she became more short of breath and started having wheezing. The hot flashes returned. She called EMS again. She was brought into the ED. She was given a breathing treatment for her wheezing. Workup in the ED showed hypoxemic, hypercapnic respiratory failure, slightly elevated white count, hypomagnesemia. She was initiated on bronchodilators, supplemental O2, IV steroids, and IV antibiotics. O2 saturations on 3 L nasal cannula are currently at 97. Blood pressures are stable. She states she does wear home O2 at night as well as a CPAP. We will put an order in for BiPAP p.r.n. She can also wear her CPAP at night. Her will bring it to the hospital. We will continue with further treatment and evaluation. PAST MEDICAL HISTORY: Per HPI. PAST SURGICAL HISTORY: Cholecystectomy, hysterectomy, right total knee, bilateral foot surgery for heel spurs, cystoscopic exam with bilateral retrograde ureteropyelograms for irritative voided symptoms. FAMILY HISTORY: The patient is adopted. There is a family member with heart disease. ALLERGIES: To codeine as well as Demerol. HOME MEDICATIONS: Being compiled. REVIEW OF SYSTEMS: Completely negative except for those mentioned in the HPI. PHYSICAL EXAMINATION: VITAL SIGNS: Temperature is 98 degrees, heart rate 85, respirations 16, blood pressure 124/56, O2 is 97% on 3 L nasal cannula. GENERAL: Ms. Corona is a morbidly obese, 69-year-old, female who is lying on the stretcher and in no acute distress. HEENT: Atraumatic, normocephalic. PERRL. NECK: Thick. CARDIOVASCULAR: S1, S2 appreciated. No murmurs, gallops, or rubs noted. RESPIRATORY: Lung sounds are clear. Did appreciate some faint expiratory wheezes bilaterally, decreased in the bases. ABDOMEN: Obese, nontender, nondistended. Positive bowel sounds. EXTREMITIES: Lower extremities positive for edema. Her bilateral toes are cool to the touch. She does have sensation intact. NEUROLOGIC: She is awake. She is alert. She is oriented. She follows all commands appropriately. DIAGNOSTIC DATA: Chest x-ray is very poor quality. It is hard to tell if there is any underlying pneumonia, cardiomegaly, maybe some pulmonary vascular congestion. Again, it is hard to read. We will await official over-read. LABORATORY DATA: White count 12, hemoglobin and hematocrit 15 and 48, platelet count is 382,000. ABG: PH 7.36, pCO2 of 56, PO2 of 49, bicarb 28, base excess 4.5, O2 saturation is 88% on 3 L nasal cannula. Sodium 142, potassium 4.6, BUN 10, creatinine 1.1, blood glucose is 142, magnesium 1.3. Plasma lactate 2.6. ASSESSMENT AND PLAN: 1. Acute on chronic hypoxemic, hypercapnic respiratory failure, multifactorial, secondary to mild chronic obstructive pulmonary disease exacerbation, obstructive sleep apnea, morbid obesity, and hypoventilation syndrome. We will do BiPAP as needed. Continue supplemental oxygen. Patient is on CPAP at night. We will recheck an arterial blood gas at 9 a.m. 2. Mild chronic obstructive pulmonary disease exacerbation. Could not rule out underlying pneumonia as well on chest x-ray. We will continue with intravenous antibiotics, bronchodilators, aggressive pulmonary toilet, supplemental oxygen, intravenous steroids. The patient did have some faint expiratory wheezes. 3. Hypomagnesemia. Ordered 2 g of magnesium. Recheck her magnesium level at 9 a.m. 4. Diabetes mellitus. We will place her on sliding scale with pattern blood sugars. 5. Hypertension. 6. Hyperlipidemia. 7. Hypothyroidism. 8. Neuropathy. 9. Depression. 10. Update and confirm home medications. We will continue when appropriate. 11. Further recommendation to follow physician evaluation, laboratory and diagnostic data. Dictated by DOMINIK Blackwell for Aftab Ryder MD I have performed a face to face diagnostic evaluation. Labs/Xrays- reviewed. Exam- Chest- rhonchi, CV- regular, Abd- soft. A/P- Acute hypercapnic respiratory failure, COPD- Admit, Bipap, duo nebs, IV ABX. Dr. Ryder. cc: Aftab Ryder MD MTDD
[2019-10-01] MEDS: SOLU-MEDROL IV SCH ×2 (12:09→18:18)
[2019-10-01] MEDS: HUMALOG SUBQ SCH ×5 (12:16→22:03)
[2019-10-01] MEDS ORDERED: NAPROSYN PO PRN (15:25)
[2019-10-01] MEDS: CARAFATE PO SCH ×2 (18:17→21:12)
[2019-10-01] MEDS: LEVAQUIN 500 MG/D5W 500 MG/100 ML IVPB IV SCH (18:18)
[2019-10-01] MEDS: ZOFRAN IV PRN (20:37)
[2019-10-01] MEDS: PEPCID PO SCH (21:11)
[2019-10-01] MEDS: LIPITOR PO SCH (21:12)
[2019-10-01] MEDS: MIRAPEX PO SCH (21:12)
[2019-10-01] MEDS: GLUCOPHAGE PO SCH (21:12)
[2019-10-01] MEDS: DITROPAN PO SCH (21:12)
[2019-10-01] MEDS ORDERED: SODIUM CHLORIDE 0.9% INJ PRN (22:21)
[2019-10-01] MEDS: PHENERGAN IV PRN (22:54)
--- NOTE | 2019-10-01 23:42 | ECHO REPORT ---
ORDER DATE: 10/01/2019 SUMMARY: 1. Limited study performed. Study is very difficult for interpretation due to very limited acoustic window quality. Intravenous echo contrast agent Optison was utilized in effort to enhance endocardial definition with limited success. 2. Grossly normal left ventricular dimensions demonstrated. Estimated left ejection fraction appears to be at least 55%. Regional wall motion abnormalities is challenging given limitation of the study. CONCLUSIONS: 1. Limited study very technically difficult for interpretation due to limited acoustic window quality. 2. Estimated left ejection fraction at least 55% without obvious wall motion abnormality evident. cc: MD Balta Willis MD
[2019-10-02] MEDS: ZOFRAN IV PRN ×2 (00:53→12:17)
[2019-10-02] MEDS: SOLU-MEDROL IV SCH ×2 (02:31→10:37)
[2019-10-02] MEDS: DUONEB (A & A) INH SCH ×6 (04:07→22:35)
[2019-10-02 05:50] LABS: BASO# 0.01 X1000 (0.0-0.2); BASO% 0.1 % (0.0-0.8); HEMOGLOBIN 14.4 g/dL (12.0-16.0); IMM GRAN# 0.08 X1000 (0.0-0.04); IMM GRAN% 0.5 % (0.0-0.5); LYMPH# 0.98 X1000 (1.2-3.4); LYMPH% 5.8 % (20.5-51.1); MCH 27.8 PG (27-31); MCV 92.7 FL (81-99); MONO% 2.9 % (1.7-9.3); MPV 12.2 FL (7.4-10.4); NEUT# 15.46 X1000 (1.4-6.5); NEUT% 90.7 % (42.2-75.2); PLT 357 X1000 (130-400); RBC 5.18 XMIL (4.2-5.4); RDW 16.5 % (11.5-14.5); WBC 17.03 X1000 (4.8-10.8)
[2019-10-02 06:04] LABS: ALLEN TEST YES; BE 6.5 mmoll (-3.0-3.0); BLOOD TYPE ARTERIAL; HCO3-(ACT) 29.9 mmoll (20.0-26.0); PO2(98.6) 76 mmHg (60-100); SAMPLE BLOOD; pH(98.6) 7.36 (7.35-7.45)
[2019-10-02 06:06] LABS: PCO2(98.6) 60 mmHg (35-45)
[2019-10-02 06:07] LABS: MODALITY CANNULA
[2019-10-02] MEDS: PRILOSEC PO SCH (06:07)
[2019-10-02 06:08] LABS: ALB/GLOB RATIO 1.1; ALBUMIN 4.1 g/dL (3.5-5.0); CALCIUM 9.1 mg/dL (8.8-10.2); CREATININE 1.3 mg/dL (0.5-0.9); TOTAL BILIRUBIN 0.44 mg/dL (0.20-1.00); TOTAL PROTEIN 7.8 g/dL (6.3-8.3)
[2019-10-02] MEDS: SYNTHROID PO SCH (06:09)
[2019-10-02] MEDS: HUMALOG SUBQ SCH ×4 (06:44→23:13)
--- NOTE | 2019-10-02 07:26 | Diag Imaging Result Doc PS360 ---
EXAM: CHEST-PORTABLE 10/02/2019 HISTORY: short of breath TECHNIQUE: AP portable at 0613 COMMENT: There is cardiomegaly. The inspiration is less optimal than on 10/01/2019. Otherwise are has been no significant change. IMPRESSION: Stable chest. Electronically signed by Gamal Gonzalez 10/02/2019 7:23 AM
[2019-10-02 07:44] LABS: LYMPHS 2 % (21-51); MONO 4 % (1-9); SEGS 92 % (42-75)
[2019-10-02] MEDS: CARAFATE PO SCH ×4 (10:34→23:13)
[2019-10-02] MEDS: DITROPAN PO SCH ×2 (10:35→23:13)
[2019-10-02] MEDS: MYRBETRIQ E.R. PO SCH (10:35)
[2019-10-02] MEDS: CARDIZEM CD PO SCH (10:35)
[2019-10-02] MEDS: PAXIL PO SCH (10:36)
[2019-10-02] MEDS: COZAAR PO SCH (10:45)
[2019-10-02] MEDS ORDERED: SOLU-MEDROL IV SCH (17:31)
[2019-10-02] MEDS: LEVAQUIN 500 MG/D5W 500 MG/100 ML IVPB IV SCH (17:54)
[2019-10-02] MEDS: PHENERGAN IV PRN (18:27)
--- NOTE | 2019-10-02 20:54 | PROGRESS NOTE ---
DATE: 10/02/2019 SUBJECTIVE: Patient has no major complaints. OBJECTIVE: Blood pressure 141/88, heart rate of 99, respiratory rate of 24 temperature 98.2 degrees, 94% on room air.Cardiovascular: Regular rate and rhythm. Pulmonary: Bilateral breath sounds. Clear to auscultation. GASTROINTESTINAL: Soft, nontender, nondistended. Bowel sounds are positive. White count 17, hemoglobin 14, hematocrit 48, platelets 357,000. A pH 7.36, pCO2 60, PaO2 is 76. Creatinine is at 1.3. PROBLEM LIST: 1. Acute on chronic hypercapnic respiratory failure. We will continue to monitor. She seems to be doing better. She is very much adamant about going home. In any case, we will see how she does clinically and follow in suit. Laboratory Data: White count up to 17, hemoglobin 14, hematocrit 48, platelets 357,000. We will continue to monitor closely. 2. Acute chronic obstructive pulmonary disease exacerbation. We will continue treatments and follow IV antibiotics. I am going to wean her steroids. 3. Type 2 diabetes. We will continue to monitor blood sugars. Check A1c. DISPOSITION: Hopefully home soon. She is down to 4 L and is usually on 3 L so possible discharge tomorrow if she stabilizes. cc: Balta Fischer MD
[2019-10-02] MEDS: PEPCID PO SCH (23:12)
[2019-10-02] MEDS: LIPITOR PO SCH (23:12)
[2019-10-02] MEDS: MIRAPEX PO SCH (23:13)
[2019-10-02] MEDS: GLUCOPHAGE PO SCH (23:13)
[2019-10-02] MEDS: LASIX IV SCH (23:26)
[2019-10-03] MEDS: SOLU-MEDROL IV SCH ×3 (02:15→21:05)
[2019-10-03] MEDS: DUONEB (A & A) INH SCH ×6 (03:30→22:53)
[2019-10-03 05:28] LABS: BASO# 0.01 X1000 (0.0-0.2); HEMATOCRIT 47.3 % (37.0-47.0); IMM GRAN% 0.5 % (0.0-0.5); LYMPH# 0.73 X1000 (1.2-3.4); LYMPH% 3.4 % (20.5-51.1); MCHC 29.6 g/dL (33-37); MCV 94.6 FL (81-99); MONO# 1.16 X1000 (0.11-0.59); MONO% 5.3 % (1.7-9.3); NEUT# 19.73 X1000 (1.4-6.5); NEUT% 90.8 % (42.2-75.2); PLT 352 X1000 (130-400); RDW 16.6 % (11.5-14.5); WBC 21.73 X1000 (4.8-10.8)
[2019-10-03 05:59] LABS: CREATININE 1.7 mg/dL (0.5-0.9); POTASSIUM 5.2 mmol/L (3.5-5.1)
[2019-10-03] MEDS: HUMALOG SUBQ SCH ×3 (06:22→16:36)
[2019-10-03] MEDS: LASIX IV SCH (06:52)
[2019-10-03] MEDS: SYNTHROID PO SCH (06:53)
[2019-10-03] MEDS: PRILOSEC PO SCH (06:53)
--- NOTE | 2019-10-03 07:59 | PULMONOLOGY CONSULTATION ---
DATE: 10/02/2019 REQUESTING CLINICIAN: Dr. Tylor Fischer. REASON FOR CONSULTATION: Respiratory failure. HISTORY OF PRESENT ILLNESS: Ms. Corona is a 69-year-old female with morbid obesity and a BMI greater than 55, asthma, obstructive sleep apnea, who has been maintaining her asthma with nebulizer regimen. The patient was previously seen by this practitioner in 2018 when she presented with respiratory failure, anasarca, cor pulmonale, and asthma. The patient was initiated on an inhaled corticosteroid at that time. She is no longer on this medication. She presented to the emergency room with wheezing and tachypnea and increasing edema over several days. PAST MEDICAL HISTORY: 1. Morbid obesity. 2. Asthma. 3. Hypertension. 4. Dyslipidemia. 5. Hypothyroidism. 6. Obstructive sleep apnea on CPAP device. 7. Chronic back pain. 8. Pickwickian syndrome. 9. Osteoarthritis. 10. Depression. 11. Status post cholecystectomy. 12. Status post hysterectomy. 13. Status post right knee replacement. SOCIAL HISTORY: No history of alcohol or tobacco use. FAMILY HISTORY: Unknown. The patient was adopted. REVIEW OF SYSTEMS: As noted in the HPI but is otherwise negative. PHYSICAL EXAMINATION: General: Reveals an obese white female with no acute distress. Vital Signs: Blood pressure 149/65, heart rate 76, respiratory rate 18, oxygen saturation 95% on nasal cannula. HEENT: Pupils are equal and reactive. Oropharynx appears clear. Neck: Supple. Chest: Reveals wheezing bilaterally. Cardiac: Regular rate. Normal S1, normal S2. Abdomen: Obese and soft. Extremities: Reveal 1+ peripheral edema. LABORATORY DATA: Chest x-ray reveals cardiomegaly with mild pulmonary vascular congestion. Arterial blood gas reveals a pH of 7.36, pCO2 of 56, PO2 of 49 on 3 L per nasal cannula. White blood count 17.03, hemoglobin 14.4, platelet count 357,000. IMPRESSION: A 69-year-old with 1. Asthma exacerbation. 2. Acute on chronic hypoxemic respiratory failure. 3. Hypercapnic respiratory failure. 4. Super morbid obesity with a BMI greater than 50. 5. Pickwickian syndrome. 6. Acute cor pulmonale with peripheral edema. Plan: 1. Steroids as you are doing. Would reinitiate an inhaled corticosteroid at the time of discharge with Symbicort or Advair or Breo or Dulera. 2. Nocturnal CPAP/BiPAP. 3. Diuretic trial. 4. Long-term, she would significantly benefit from weight loss, but this will be difficult to achieve. cc: Aleksey Jung MD
[2019-10-03] MEDS: DITROPAN PO SCH ×2 (08:14→20:15)
[2019-10-03] MEDS: CARDIZEM CD PO SCH (08:14)
[2019-10-03] MEDS: PAXIL PO SCH (08:14)
[2019-10-03] MEDS: CENTRUM SILVER PO SCH (08:14)
[2019-10-03] MEDS: MYRBETRIQ E.R. PO SCH (08:14)
[2019-10-03] MEDS: COZAAR PO SCH (08:14)
[2019-10-03] MEDS: CARAFATE PO SCH ×4 (08:14→20:16)
[2019-10-03] MEDS: NORCO-5 PO PRN ×2 (13:48→20:23)
[2019-10-03] MEDS: LEVAQUIN 500 MG/D5W 500 MG/100 ML IVPB IV SCH (18:31)
--- NOTE | 2019-10-03 19:13 | PROGRESS NOTE ---
DATE: 10/03/2019 SUBJECTIVE: Patient has no major complaints. She wants to go home. She looks better though. Breathing is better. OBJECTIVE: Blood pressure is 106/57, heart rate of 52, respiratory rate 21, temperature 97.7 degrees, 91% on 4 L.Cardiovascular: Regular rate and rhythm. Pulmonary: Bilateral breath sounds clear to auscultation. GI: Soft, nontender, nondistended. Bowel sounds are positive. LABORATORIES: White count up to 21, H H 14 and 47, platelets 352,000. Potassium 5.2, creatinine 1.7. PROBLEM LIST: 1. Acute on chronic hypercapnic respiratory failure due to obesity, hypoventilation syndrome and Pickwickian syndrome. We will continue to monitor. See how things go. She has gotten diuretics, steroids. 2. Acute chronic obstructive pulmonary disease exacerbation. She is on antibiotics. I think we could probably wean her steroids further because I do not appreciate any wheezing. 3. Acute kidney injury. She has had moderate elevation in her creatinine, probably could be related to diuretic. We are just going to kind of hold all nephrotoxic stuff today and see how things go. DISPOSITION: Hopefully discharge in next 1 to 2 days pending her clinical status. cc: Balta Fischer MD
[2019-10-03] MEDS: MIRAPEX PO SCH (20:15)
[2019-10-03] MEDS: LIPITOR PO SCH (20:15)
[2019-10-03] MEDS: PEPCID PO SCH (20:15)
--- NOTE | 2019-10-03 21:58 | PULMONOLOGY PROGRESS NOTE ---
DATE: 10/03/2019 SUBJECTIVE: The patient is awake, alert, and conversant. She reports her breathing has significantly improved. OBJECTIVE: Vital Signs: The patient has been afebrile for the last 24 hours. Blood pressure is 106/57, heart rate 78, respiratory rate 20, oxygen saturation 95% on 4 L per nasal cannula. HEENT: Pupils are equal and reactive. Oropharynx appears clear. Neck: Supple. Chest: Reveals better air flow bilaterally without wheezing or rhonchi. Cardiac: Distant heart sounds. Normal S1, normal S2. Abdomen: Obese and soft. Extremities: Without edema. LABORATORIES: Chemistries, 140, potassium 5.2, chloride 95, bicarbonate 34, BUN 1.7. White blood count 21,000, hemoglobin 14.0, platelet count 352,000. IMPRESSION: A 69-year-old with: 1. Acute asthma exacerbation. 2. Acute on chronic hypoxemic respiratory failure. 3. Hypercapnic respiratory failure. 4. Morbid obesity. 5. Pickwickian syndrome. PLAN: 1. Continue bronchodilators. 2. Recommend discharge with an inhaled corticosteroid/long-acting beta agonist as outlined in the initial consultation. 3. Continue nocturnal BiPAP/CPAP. 4. Weight loss is recommended if there was a mechanism to have this goal achieved. cc: Aleksey Jung MD
[2019-10-04] MEDS: DUONEB (A & A) INH SCH ×6 (03:42→22:39)
[2019-10-04] MEDS: HUMALOG SUBQ SCH ×5 (04:15→21:09)
[2019-10-04 05:48] LABS: HEMATOCRIT 44.8 % (37.0-47.0); HEMOGLOBIN 13.4 g/dL (12.0-16.0); MCHC 29.9 g/dL (33-37); MCV 93.5 FL (81-99); MPV 11.9 FL (7.4-10.4); RBC 4.79 XMIL (4.2-5.4); RDW 16.4 % (11.5-14.5); WBC 19.74 X1000 (4.8-10.8)
[2019-10-04 06:20] LABS: CALCIUM 8.6 mg/dL (8.8-10.2); CREATININE 2.4 mg/dL (0.5-0.9); POTASSIUM 5.8 mmol/L (3.5-5.1)
[2019-10-04] MEDS: SYNTHROID PO SCH (06:35)
[2019-10-04] MEDS: PRILOSEC PO SCH (06:35)
[2019-10-04] MEDS: PAXIL PO SCH (09:20)
[2019-10-04] MEDS: CARAFATE PO SCH ×5 (09:20→21:14)
[2019-10-04] MEDS: CARDIZEM CD PO SCH (09:20)
[2019-10-04] MEDS: MYRBETRIQ E.R. PO SCH (09:20)
[2019-10-04] MEDS: SOLU-MEDROL IV SCH ×2 (09:20→18:02)
[2019-10-04] MEDS: CENTRUM SILVER PO SCH (09:20)
[2019-10-04] MEDS: DITROPAN PO SCH (09:20)
[2019-10-04] MEDS ORDERED: NS 1,000 ML IV ONE (10:06)
[2019-10-04] MEDS: NORCO-5 PO PRN (11:22)
[2019-10-04] MEDS: ZOFRAN IV PRN (11:23)
[2019-10-04] MEDS ORDERED: SODIUM CHLORIDE 0.9% 10 ML ONE (12:31)
[2019-10-04] MEDS: PROTONIX IV SCH (12:32)
--- NOTE | 2019-10-04 13:44 | Diag Imaging Result Doc PS360 ---
EXAM: ABDOMEN FLAT/UPRIGHT HISTORY: pain TECHNIQUE: Five views COMPARISON: None. FINDINGS: There is a large amount of stool in the proximal colon. There are air distended small bowel loops measuring up to 5 cm. No organomegaly. IMPRESSION: There appears to be a bowel obstruction although there is prominent stool in the proximal colon. Electronically signed by Alfredo Lemon 10/04/2019 1:41 PM
[2019-10-04] MEDS ORDERED: DULCOLAX PR ONE (16:04)
--- NOTE | 2019-10-04 16:36 | PROGRESS NOTE ---
DATE: 10/04/2019 SUBJECTIVE: Patient has complaints of emesis today. It looks kind of dark brown, possibly black, but not bloody. OBJECTIVE: Vital Signs: Blood pressure is 113/78, heart rate 91, respiratory rate 22, temperature 97.5 degrees. Cardiovascular: Regular rate and rhythm. Pulmonary: Bilateral breath sounds clear to auscultation was soft. GI: She is still very tight in her upper abdomen. Bowel sounds not present. LABORATORY: White count 19, hemoglobin and hematocrit 13 and 44, platelets 335,000. Potassium is up to 5.8. Creatinine is up to 2.4. PROBLEM LIST: 1. Acute on chronic hypercapnic respiratory failure. We will continue treatment. She is on intermittent BiPAP O2, that seems to have gotten better. 2. Acute chronic obstructive pulmonary disease exacerbation. We will continue to wean steroids as tolerated. She is on a pretty low dose right now. 3. Acute kidney injury, unclear etiology. Waiting on urine electrolytes to come back. She may need some gentle hydration and avoid nephrotoxic drugs. 4. Constipation, obstipation, maybe early ileus. We will get a CT without IV contrast to rule out obstruction and work on a bowel regimen and we will go there. DISPOSITION: Pending improvement in her clinical status. cc: Balta Fischer MD
[2019-10-04] MEDS: LEVAQUIN 500 MG/D5W 500 MG/100 ML IVPB IV SCH (18:03)
--- NOTE | 2019-10-04 18:16 | Diag Imaging Result Doc PS360 ---
EXAM: CT ABD/PELVIS W/ORAL CONT ONLY HISTORY: r/o sbo TECHNIQUE: CT abdomen and pelvis without intravenous contrast COMPARISON: None. FINDINGS: Mild increased markings in the lung bases. There is fatty infiltration of the liver. The gallbladder is not present. No splenomegaly. No inflammation about the pancreas. Normal adrenal glands. There is a 5 mm nonobstructing left renal stone. No hydronephrosis. Oral contrast is present within the distended stomach. The proximal and mid small bowel loops are distended. The distal small bowel loops are not distended. The urinary bladder is normal. The uterus has been removed. No pelvic mass. There is a fat filled umbilical hernia. IMPRESSION: 1.Mid to distal small bowel obstruction 2.Cholecystectomy 3.There is fatty infiltration of the liver 4.Nonobstructing left renal stone 5.Hysterectomy This exam was performed using automated exposure control, adjustment of mA or kV according to patient size, and/or use of iterative reconstruction technique. Electronically signed by Alfrdeo Lemon 10/04/2019 6:13 PM
[2019-10-04] MEDS: MORPHINE IV PRN (18:48)
[2019-10-04] MEDS: MIRAPEX PO SCH ×2 (21:13→21:15)
--- NOTE | 2019-10-05 02:00 | PULMONOLOGY PROGRESS NOTE ---
DATE: 10/04/2019 SUBJECTIVE: The patient is awake and alert. She reports her breathing is doing okay, but she is having ongoing nausea and vomiting. She has completed a CT scan of the abdomen and pelvis. OBJECTIVE: Vital Signs: The patient has been afebrile over the last 24 hours. Blood pressure 122/63, heart rate 74, respiratory rate 24, oxygen saturation 95%. HEENT: Pupils are equal and reactive. Oropharynx appears clear. Neck: Supple. Chest: Decreased air entry bilaterally with crackles in the lung bases. Cardiac: S1-S2. Abdomen: Obese and soft. Extremities: Reveal 1+ peripheral edema. LABORATORIES: CT scan of the abdomen reveals minor infiltrates in the lung bases. She has cardiomegaly. She may have an early bowel obstruction. Sodium 139, potassium 5.8, chloride 94, bicarbonate 31, BUN 57, creatinine 2.4. IMPRESSION: A 69-year-old with: 1. Acute asthma exacerbation. 2. Acute on chronic hypoxemic respiratory failure. 3. Hypercapnic respiratory failure. 4. Morbid obesity. 5. Acute renal insufficiency. 6. Possible small bowel obstruction. PLAN: 1. Continue bronchodilators. 2. Initiate fluids. 3. Continue nocturnal BiPAP/CPAP. 4. Agree with NPO status. 5. Serial x-rays and clinical exams of her abdomen which is currently benign. cc: Aleksey Jung MD
[2019-10-05] MEDS: DUONEB (A & A) INH SCH ×6 (03:38→23:42)
[2019-10-05] MEDS: D5 1/2 NS 1,000 ML IV SCH ×3 (03:50→20:48)
[2019-10-05] MEDS: SOLU-MEDROL IV SCH (05:05)
[2019-10-05] MEDS: DULCOLAX PR SCH ×3 (05:06→20:47)
[2019-10-05] MEDS: LOVENOX SUBQ SCH (05:06)
[2019-10-05] MEDS: HUMALOG SUBQ SCH ×4 (06:16→20:47)
[2019-10-05 06:35] LABS: BASO# 0.01 X1000 (0.0-0.2); HEMATOCRIT 42.9 % (37.0-47.0); HEMOGLOBIN 12.8 g/dL (12.0-16.0); IMM GRAN# 0.12 X1000 (0.0-0.04); IMM GRAN% 0.5 % (0.0-0.5); LYMPH# 1.59 X1000 (1.2-3.4); LYMPH% 7.1 % (20.5-51.1); MCH 27.8 PG (27-31); MCHC 29.8 g/dL (33-37); MCV 93.1 FL (81-99); MONO# 0.57 X1000 (0.11-0.59); MONO% 2.5 % (1.7-9.3); MPV 12.1 FL (7.4-10.4); NEUT# 20.12 X1000 (1.4-6.5); NEUT% 89.9 % (42.2-75.2); PLT 321 X1000 (130-400); RBC 4.61 XMIL (4.2-5.4); RDW 16.2 % (11.5-14.5); WBC 22.41 X1000 (4.8-10.8)
[2019-10-05 06:48] LABS: CALCIUM 8.5 mg/dL (8.8-10.2); CREATININE 3.4 mg/dL (0.5-0.9); MAGNESIUM 1.6 mg/dL (1.5-2.7); POTASSIUM 5.1 mmol/L (3.5-5.1)
[2019-10-05 07:38] LABS: ANISOCYTOSIS 1+; LYMPHS 15 % (21-51); MONO 5 % (1-9); SEGS 80 % (42-75)
[2019-10-05] MEDS: CENTRUM SILVER PO SCH (09:36)
[2019-10-05] MEDS: CARDIZEM CD PO SCH (09:36)
[2019-10-05] MEDS: CARAFATE PO SCH ×2 (09:36→12:51)
--- NOTE | 2019-10-05 10:40 | Diag Imaging Result Doc PS360 ---
EXAM: KUB ABDOMEN HISTORY: SBO TECHNIQUE: Two views COMPARISON: 10/04/2019 FINDINGS: There are air distended loops of small bowel. There is stool in the proximal and mid colon. No organomegaly. Prominent degenerative spine changes. IMPRESSION: Persistent bowel obstruction Electronically signed by Alfredo Lemon 10/05/2019 10:37 AM
[2019-10-05] MEDS: PROTONIX IV SCH (12:50)
[2019-10-05] MEDS: MORPHINE IV PRN ×2 (12:50→20:52)
[2019-10-05] MEDS: SODIUM CHLORIDE 0.9% INJ SCH (12:50)
[2019-10-05] MEDS ORDERED: FLEET MINERAL OIL ENEMA PR ONE (13:22)
[2019-10-05] MEDS ORDERED: D5 1/2 NS 1,000 ML IV SCH (14:53)
[2019-10-05] MEDS ORDERED: LASIX IV ONE (14:53)
--- NOTE | 2019-10-05 15:44 | GENERAL SURGERY CONSULTATION ---
DATE: 10/05/2019 REQUESTING PHYSICIAN: Dr. Fischer. REASON FOR CONSULTATION: Bowel obstruction. HISTORY OF PRESENT ILLNESS: A 69-year-old morbidly obese female with a BMI of 55.4, who presented initially to the emergency department with shortness of breath and hot flashes. She has been in the hospital since the . She has had difficulty with bowel movement since then and become distended. She has had a CT scan that showed a bowel obstruction and abdominal film that showed no improvement today. The patient is somewhat responsive and says she is not hurting right now in her abdomen. I was asked to weigh an opinion. PAST MEDICAL HISTORY: Morbid obesity, sleep apnea, hypoventilation syndrome, hypertension, gastroesophageal reflux disease, depression, hypothyroidism, diabetes mellitus, neuropathy. PAST SURGICAL HISTORY: Includes cholecystectomy, hysterectomy, right knee surgery, bilateral foot surgery, cystoscopy with bilateral retrograde. FAMILY HISTORY: Unsure. Patient is adopted. ALLERGIES: Codeine, Demerol. HOME MEDICATIONS: Written in MAR reviewed. REVIEW OF SYSTEMS: A full 14 systems reviewed and negative except as specified in HPI. PHYSICAL EXAM: Vital Signs: Patient is currently afebrile. Temperature 97.4 degrees, pulse 99, blood pressure 102/74, O2 saturation 94%. General: Morbidly obese female. HEENT: Normocephalic, atraumatic. Pupils equal, round, reactive to light. Some frothiness noted in her mouth. Neck: Difficult to assess secondary to obesity. Cardiovascular: Regular rate and rhythm. Lungs: Grossly clear. Abdomen: Obese, nontender. Hypoactive bowel sounds. Extremities: Moves all extremities. Neurologic: Interactive. Skin: No signs of jaundice. Vascular: All extremities perfused. LABORATORY: White blood count is 22, hematocrit is normal, platelet count normal, remainder of labs reviewed. CT scan as noted above. ASSESSMENT AND PLAN: A 69-year-old female with bowel obstruction. Bowel obstruction. This time patient is a very high risk ulcer for surgical intervention. Would like to try to treat her nonoperatively with conservative management. Will probably need to transfer to the ICU given her overall clinical status and maybe closer observation. She is probably going to need an NG tube but like to try to place that if she is going to the ICU. Again her morbid obesity makes any kind of surgical intervention very high risk and again will try to manage her without any operation. I did discuss her case with Dr. Fischer who is the hospitalist on board for her today and will just see how she does. cc: Herman Fisher MD
[2019-10-05] MEDS ORDERED: ZOFRAN IV PRN (16:15)
--- NOTE | 2019-10-05 17:05 | Diag Imaging Result Doc PS360 ---
EXAM: CHEST-PORTABLE HISTORY: pulmonary edema TECHNIQUE: Two views COMPARISON: 10/02/2019 FINDINGS: The lungs are well expanded. The heart is enlarged. The vessels are not distended. There are no infiltrates. Tiny left effusion versus pleural thickening. IMPRESSION: Cardiac megaly Electronically signed by Alfredo Lemon 10/05/2019 5:02 PM
[2019-10-05 17:13] LABS: INR 1.19; PROTIME 15.3 Seconds (11.0-16.0)
[2019-10-05 17:14] LABS: UR CREAT RANDOM 171.3 mg/dL (11-20); UR PROT RANDOM 33.2 mg/dL
--- NOTE | 2019-10-05 17:20 | PROGRESS NOTE ---
DATE: 10/05/2019 SUBJECTIVE: She has more shortness of breath today. She has not had a bowel movement in several days despite suppositories. She is throwing up greenish/brownish liquid and having increased work of breathing and has been placed on the BiPAP. OBJECTIVE: Vital Signs: Blood pressure is 102/74, heart rate 99, respiratory rate of 16, temperature 97.4, 94% on 5 L. Cardiovascular: Tachycardic. Pulmonary: Diminished breath sounds at the bases. GI: Soft, nontender, nondistended. Bowel sounds are positive. LABORATORY DATA: White count 22, hemoglobin and hematocrit 12/42, platelets 321. Creatinine is up to 3.4. PROBLEM LIST: 1. Acute on chronic respiratory failure. This is likely due to pulmonary edema and Pickwickian syndrome. She may be aspirating as well because now she has a partial small bowel obstruction. She is on BiPAP. Dr. Jung is following. Condition still tenuous. She may require intubation, although she seems to be doing okay on BiPAP right now. 2. Acute kidney injury which is progressing. I think at this point it is acute tubular necrosis. She is oliguric. I did give her a dose of Lasix because she does appear to be volume overloaded. We will consult Renal and follow. She has no urinary retention. 3. Small bowel obstruction. She has significant constipation, but CT shows small bowel obstruction which is persistent. I have consulted Surgery. Nasogastric tube is being placed, and we will continue to monitor. Continue suppositories and Fleet's enemas to try to evacuate the retained stool and possible contrast from her CT yesterday. 4. Chronic obstructive pulmonary disease. We will continue inhaled steroids. I have stopped her IV steroids. We may need to resume those, but will continue to follow. DISPOSITION: Pending her clinical status, which is guarded. CRITICAL CARE TIME: Thirty-three minutes. cc: Balta Fischer MD
--- NOTE | 2019-10-05 18:54 | PULMONOLOGY PROGRESS NOTE ---
DATE: 10/05/2019 SUBJECTIVE: The patient had increased work of breathing. She has had some emesis with her abdominal distention. She has been moved to the intensive care unit. NG tube has been placed and she drained greater than 300 mL of bilious fluid. She is on BiPAP, but is not in distress. She does respond appropriately. OBJECTIVE: The patient has been afebrile for the last 24 hours. Blood pressure 95/60, heart rate 70, respiratory rate 13, oxygen saturation 100%. HEENT: Pupils are equal and reactive. Oropharynx appears clear, but evaluation is limited with BiPAP in place. Neck: Supple. Chest: Crackles bilaterally. Cardiac: [id number] distention with increased tympany. Extremities: Trace to 1+ peripheral edema. LABORATORY AND DIAGNOSTIC DATA: Chest x-ray reveals no definite acute infiltrates. The NG tube appears to be at least to the EG junction. KUB reveals multiple distended loops of small bowel consistent with small bowel obstruction. Sodium 136, potassium 5.1, chloride 93, bicarbonate 28, BUN 75, creatinine 3.4. White blood count 22,000, hemoglobin 12.8, platelet count 321,000. IMPRESSION: A 69-year-old with: 1. Asthma exacerbation. 2. Acute on chronic hypoxemic respiratory failure. 3. Acute renal failure. 4. Small bowel obstruction. 5. Morbid obesity. PLAN: 1. Transfer to the ICU (this has been completed). 2. Initiate BiPAP through the evening. We will attempt to avoid intubation because she will be difficult to extubate. 3. Re-initiate IV fluids. 4. We will ask the PICC team if they can place a line. She is at high risk for placing a groin line or a neck line due to her body habitus. 5. Prognosis is guarded. TIME SPENT IN CRITICAL CARE MANAGEMENT: 35 minutes. cc: Aleksey Jung MD
[2019-10-05] MEDS ORDERED: SODIUM BICARBONATE 8.4% 150 MEQ in D5W 1,000 ML IV SCH (19:15)
[2019-10-05] MEDS: LEVAQUIN 500 MG/D5W 500 MG/100 ML IVPB IV SCH (20:47)
[2019-10-06] MEDS: DUONEB (A & A) INH SCH ×6 (03:20→23:19)
[2019-10-06] MEDS: LOVENOX SUBQ SCH (05:44)
[2019-10-06] MEDS: D5 1/2 NS 1,000 ML IV SCH (05:44)
[2019-10-06 05:47] LABS: BASO# 0.01 X1000 (0.0-0.2); BASO% 0.1 % (0.0-0.8); HEMATOCRIT 39.2 % (37.0-47.0); HEMOGLOBIN 11.7 g/dL (12.0-16.0); IMM GRAN# 0.09 X1000 (0.0-0.04); IMM GRAN% 0.5 % (0.0-0.5); LYMPH# 1.04 X1000 (1.2-3.4); LYMPH% 5.4 % (20.5-51.1); MCH 27.3 PG (27-31); MCHC 29.8 g/dL (33-37); MCV 91.4 FL (81-99); MONO# 1.38 X1000 (0.11-0.59); MONO% 7.2 % (1.7-9.3); MPV 12.2 FL (7.4-10.4); NEUT# 16.65 X1000 (1.4-6.5); NEUT% 86.8 % (42.2-75.2); PLT 262 X1000 (130-400); RBC 4.29 XMIL (4.2-5.4); WBC 19.17 X1000 (4.8-10.8)
[2019-10-06 06:15] LABS: CALCIUM 8.1 mg/dL (8.8-10.2); CREATININE 3.7 mg/dL (0.5-0.9); MAGNESIUM 1.9 mg/dL (1.5-2.7)
[2019-10-06] MEDS: HUMALOG SUBQ SCH ×4 (06:26→20:25)
--- NOTE | 2019-10-06 07:07 | GENERAL SURGERY PROGRESS NOTE ---
DATE: 10/06/2019 SUBJECTIVE: The patient was transferred to the ICU. Discussed the case with the nurse taking care of her. Her urine output has been low. Her blood pressure has been somewhat low. She has been placed on BiPAP. She did get a PICC line yesterday. OBJECTIVE: Vital Signs: The patient is currently with a temperature of 98 degrees, blood pressure 95/51, pulse 83. General: Somewhat agitated, but on BiPAP. Cardiovascular: Regular rate and rhythm. Lungs: Coarse sounds noted. The patient is on BiPAP. Abdomen: Obese, difficult exam, but her abdomen seems to be somewhat firm. This could be related to her obesity. LABORATORY DATA: White blood cell count is 19, hematocrit 39. There is a left shift. Remainder of the labs are reviewed. Of note, her creatinine is 3.7 and has been increasing. ASSESSMENT AND PLAN: A 69-year-old female with bowel obstruction and multiple medical comorbidities. 1. Bowel obstruction. At this time, she has a nasogastric tube in place, which seems to be not doing much at this point. Will keep her nothing by mouth, and try to decompress as much as we can. She is getting bilevel positive airway pressure, which may be filling up with a little bit of air, but her respiratory status is probably somewhat tenuous. Will continue to monitor. 2. Multiple medical comorbidities, currently being managed by the hospitalist, Pulmonary, and Nephrology. cc: MD JOSELYN Damon
[2019-10-06 10:00] LABS: ALLEN TEST YES; BE 2.1 mmoll (-3.0-3.0); BLOOD TYPE ARTERIAL; HCO3-(ACT) 26.5 mmoll (20.0-26.0); METHB 1.5 % (0.0-1.5); O2(CT) 16.1 mL/dL (15.0-23.0); O2HB 92.8 % (95.0-99.0); PO2(98.6) 68 mmHg (60-100); SAMPLE BLOOD; THB 12.3 g/dL (11.5-17.4); pH(98.6) 7.25 (7.35-7.45)
[2019-10-06] MEDS: DULCOLAX PR SCH ×2 (10:00→20:28)
[2019-10-06 10:03] LABS: MODALITY CANNULA; PCO2(98.6) 71 mmHg (35-45)
--- NOTE | 2019-10-06 10:24 | Diag Imaging Result Doc PS360 ---
EXAM: CHEST-PORTABLE 10/06/2019 HISTORY: respiratory failure TECHNIQUE: AP portable upright at 1014 COMMENT: There is cardiomegaly. Considering differences in inspiration and technique are has been no appreciable change since 10/05/2019. The film is largely underexposed. IMPRESSION: Cardiomegaly. Electronically signed by Gamal Gonzalez 10/06/2019 10:21 AM
[2019-10-06] MEDS: PROTONIX IV SCH (12:10)
[2019-10-06] MEDS ORDERED: DOPAMINE 800 MG/D5W 800 MG/500 ML IV.SOLN IV SCH (13:15)
[2019-10-06] MEDS ORDERED: SODIUM BICARBONATE 8.4% 150 MEQ in D5W 1,000 ML IV SCH ×2 (13:45→16:00)
[2019-10-06] MEDS ORDERED: FLEET MINERAL OIL ENEMA PR ONE (14:10)
--- NOTE | 2019-10-06 14:31 | PROGRESS NOTE ---
DATE: 10/06/2019 SUBJECTIVE: The patient has no major complaints. She is apparently requesting a milkshake. OBJECTIVE: Vital Signs: Blood pressure is 82/58, heart rate of 82, respiratory rate 22, temperature 97.5 degrees, saturating 96% on 3 L. Cardiovascular: Regular rate and rhythm. Pulmonary: Bilateral breath sounds. Clear to auscultation. GI: Soft, nontender, nondistended. Bowel sounds are positive. She is not tender, but she has just a very firm abdominal exam. I would not say there is guarding, it is just kind of diffusely firm, especially in the upper quadrants. LABORATORY DATA: White count 19, hemoglobin and hematocrit 11 and 39, platelets 262,000. PH 7.25, pCO2 of 71, PaO2 of 68. Sodium is down 132, BUN and creatinine of 82 and 3.7, calcium 8.1. Urine electrolytes are nonspecific. This looks more like ATN. PROBLEM LIST: 1. Acute respiratory failure, hypercapnic, hypoxic, due to Pickwickian syndrome. It does not look like she is volume overloaded at this point, although that may develop soon with her renal failure. No pneumonia per se, but she has definitely stabilized since yesterday, and she is on bilevel positive airway pressure cycling with regular oxygen. 2. Acute kidney injury, which at this point I think is due to acute tubular necrosis based on the numbers. I am not sure what has triggered this possible sepsis, medications. Urine output is still negligible. Nephrology has been consulted. The trajectory of her renal dysfunction has at least, I think, plateaued. She came in at 1.1. She is at 3.7, but only 3.4 yesterday. Her azotemia has progressed, which may be multifactorial. She had been on steroids, which certainly raises the concern over gastrointestinal bleed, but there is no evidence of gastrointestinal bleed. She is also somewhat hypotensive. She is on a sodium bicarbonate drip per Dr. Jung, and I have added dopamine because she is transiently hypotensive. We really need to make sure her MAP stays above 65 so to not allow further perfusion defect and damage. 3. Small-bowel obstruction. She is constipated without any evidence of bowel movement. Surgery is following. Obviously, she is not a very good surgical candidate, so hopefully we can fix this nonsurgically, but she is so obese that it is difficult to kind to get her up and about. Her body mass index is 55. 4. Disposition. Condition guarded. Updated her , and we will follow closely. cc: Balta Fischer MD
--- NOTE | 2019-10-06 15:26 | PULMONOLOGY PROGRESS NOTE ---
DATE: 10/06/2019 SUBJECTIVE: The patient is awake, alert, and conversant. She reports she is hungry and would like to eat. OBJECTIVE: Vital Signs: The patient remains afebrile. Blood pressure 91/53, heart rate 85, respiratory rate 28, oxygen saturation 94% on nasal cannula. HEENT: Pupils are equal and reactive. Neck: Thick but supple. Chest: Chest reveals distant breath sounds with faint wheezing. Cardiac Exam: S1, S2. Abdomen: Obese and soft with increased tympany. Extremities: Reveal 1+ peripheral edema. LABORATORY DATA: Sodium 132, potassium 5.0, chloride 90, bicarbonate 27, BUN 82, creatinine 3.7, glucose 107. Arterial blood gas reveals a pH of 7.27, pCO2 of 71, pO2 of 68. IMAGING: Chest x-ray reveals cardiomegaly and shallow inspiration. IMPRESSION: 69-year-old with 1. Asthma exacerbation with decreasing wheezing. 2. Acute on chronic hypoxemic respiratory failure. 3. Small bowel obstruction. 4. Acute renal failure. 5. Morbid obesity. PLAN: 1. Continue to cycle BiPAP and nasal cannula as tolerated. 2. Additional fluid bolus today. 3. The PICC line was placed yesterday and the help of the PICC team was greatly appreciated. 4. Prognosis guarded. cc: Aleksey Jung MD
[2019-10-06 15:41] LABS: URINE SOURCE CATH
[2019-10-06 15:44] LABS: BILIRUBIN URINE NEGATIVE (NEGATIVE); BLOOD URINE SMALL (NEGATIVE); COLOR YELLOW; GLUCOSE URINE NEGATIVE (NEGATIVE); KETONE URINE NEGATIVE (NEGATIVE); LEUKOCYTES URINE SMALL (NEGATIVE); NITRITE URINE NEGATIVE (NEGATIVE); PH URINE 5.5; PROTEIN URINE TRACE mg/dL (NEGATIVE); SP GRAVITY URINE 1.013; TURBIDITY URINE HAZY (CLEAR); UROBILINOGEN URINE NORMAL (NORMAL)
[2019-10-06 15:49] LABS: UR EPITHELIAL CELLS <10 /HPF (<10); URINE BACTERIA NEGATIVE /HPF; URINE RBC <10 /HPF (<10); URINE WBC <10 /HPF (<10)
[2019-10-06 15:55] LABS: URINE YEAST PRESENT
[2019-10-06] MEDS: LEVAQUIN 500 MG/D5W 500 MG/100 ML IVPB IV SCH (20:28)
[2019-10-07] MEDS ORDERED: SODIUM BICARBONATE 8.4% 150 MEQ in D5W 1,000 ML IV SCH (02:30)
[2019-10-07] MEDS: DUONEB (A & A) INH SCH ×6 (03:17→23:03)
[2019-10-07 04:35] LABS: ALLEN TEST YES; BE 11.1 mmoll (-3.0-3.0); BLOOD TYPE ARTERIAL; HCO3-(ACT) 33.5 mmoll (20.0-26.0); METHB 1.2 % (0.0-1.5); O2(CT) 12.1 mL/dL (15.0-23.0); O2HB 92.8 % (95.0-99.0); PO2(98.6) 64 mmHg (60-100); SAMPLE BLOOD; THB 9.2 g/dL (11.5-17.4); pH(98.6) 7.35 (7.35-7.45)
[2019-10-07 04:36] LABS: MODALITY CANNULA; PCO2(98.6) 70 mmHg (35-45)
[2019-10-07 05:59] LABS: BASO# 0.01 X1000 (0.0-0.2); BASO% 0.1 % (0.0-0.8); EOS# 0.08 X1000 (0.0-0.7); EOS% 0.6 % (0.0-10.0); IMM GRAN# 0.09 X1000 (0.0-0.04); IMM GRAN% 0.6 % (0.0-0.5); LYMPH# 1.48 X1000 (1.2-3.4); LYMPH% 10.5 % (20.5-51.1); MCH 27.6 PG (27-31); MCHC 30.8 g/dL (33-37); MCV 89.7 FL (81-99); MONO# 1.17 X1000 (0.11-0.59); MONO% 8.3 % (1.7-9.3); MPV 12.3 FL (7.4-10.4); NEUT# 11.22 X1000 (1.4-6.5); NEUT% 79.9 % (42.2-75.2); PLT 215 X1000 (130-400); RBC 4.35 XMIL (4.2-5.4); RDW 15.6 % (11.5-14.5); WBC 14.05 X1000 (4.8-10.8)
[2019-10-07] MEDS: HUMALOG SUBQ SCH ×4 (06:01→20:25)
[2019-10-07] MEDS: LOVENOX SUBQ SCH (06:01)
--- NOTE | 2019-10-07 06:33 | Diag Imaging Result Doc PS360 ---
KUB ABDOMEN - 10/07/2019 INDICATION: SBO COMPARISON: 10/05/2019 FINDINGS: There is severe fecal impaction of the right colon. There is severe diffuse hyper inflation of all the bowels. No definite rectal gas. IMPRESSION: Probable distal obstruction. Severe fecal impaction of the right colon. No change from prior. Electronically signed by Isaiah Dior 10/07/2019 6:31 AM
--- NOTE | 2019-10-07 06:34 | Diag Imaging Result Doc PS360 ---
CHEST-PORTABLE - 10/07/2019 INDICATION: abnormal exam COMPARISON: 10/06/2019 FINDINGS: Stable left PICC line in good position. There is a nasogastric tube, the tip is not visible. Stable cardiomegaly and pulmonary vascular congestion. Stable mild pulmonary edema. No pneumothorax or pleural effusion. IMPRESSION: No change from prior. Electronically signed by Isaiah Dior 10/07/2019 6:32 AM
[2019-10-07 06:41] LABS: ALB/GLOB RATIO 1.3; ALBUMIN 3.2 g/dL (3.5-5.0); CALCIUM 7.8 mg/dL (8.8-10.2); CREATININE 2.9 mg/dL (0.5-0.9); MAGNESIUM 1.7 mg/dL (1.5-2.7); POTASSIUM 4.4 mmol/L (3.5-5.1); TOTAL BILIRUBIN 0.29 mg/dL (0.20-1.00); TOTAL PROTEIN 5.7 g/dL (6.3-8.3)
--- NOTE | 2019-10-07 06:59 | GENERAL SURGERY PROGRESS NOTE ---
DATE: 10/07/2019 SUBJECTIVE: The patient seems to be doing a little bit better. She thinks she might have passed a little bit of gas. Nursing staff reports no major issues. She did have one small bowel movement. NG tube has had minimal output. OBJECTIVE: Vital Signs: The patient is currently afebrile, blood pressure 109/67, pulse 90, O2 saturation 95%. General: No acute distress. Resting comfortably. HEENT: Normocephalic, atraumatic. Pupils equal, round, reactive to light. Mucous membranes moist. Oropharynx benign. Neck: Supple. Trachea midline. Cardiovascular: Regular rate and rhythm. Lungs: Grossly clear. Abdomen: Morbidly obese, nontender. Extremities: Moves all extremities. Neurologic: Grossly intact. Skin: No signs of jaundice. Vascular: All extremities perfused. LABORATORY DATA: Reviewed. ABG reviewed. ASSESSMENT AND PLAN: A 69-year-old female with bowel obstruction. Bowel obstruction. At this time, I think it is resolving. Will keep her nasogastric tube in for right now. May need to consider getting an abdominal film on her, but it sounds like she might have already had one ordered, and this has not been put into the system yet. Hopefully, she turned the corner with the bowel obstruction. cc: Herman Fisher MD
[2019-10-07] MEDS: DULCOLAX PR SCH ×2 (09:19→20:25)
[2019-10-07] MEDS: MORPHINE IV PRN (09:48)
[2019-10-07] MEDS: PROTONIX IV SCH (12:52)
[2019-10-07] MEDS: FLEET MINERAL OIL ENEMA PR SCH ×2 (12:52→15:59)
[2019-10-07] MEDS: SODIUM CHLORIDE 0.9% INJ SCH (12:52)
--- NOTE | 2019-10-07 14:54 | PROGRESS NOTE ---
DATE: 10/07/2019 SUBJECTIVE: Patient has no major complaints. OBJECTIVE: Blood pressure is 93/79, heart rate 90, respiratory rate of 15, temperature 97.6 degrees, 96% on 3 L. Cardiovascular: Regular rate and rhythm. Pulmonary: Bilateral breath sounds. No rales. More clear than yesterday. GI: Soft. She is not really tender but she is still very firmly distended. Bowel sounds are hypoactive. Laboratory Data: White count is 14, hemoglobin and hematocrit 12 and 39, platelets 215,000. PH 7.35, pCO2 of 70, PaO2 of 64. Creatinine is down to 2.9. Her urine output hopefully has picked up. She has had a couple of stools. Her urine output was 642 and then 1740 so her ATN is resolving. ASSESSMENT: 1. Acute respiratory failure with associated hypercapnia, hypoxia due to pickwickian syndrome. We will continue to monitor. Appreciate pulmonary help. She is kind of cycling off BiPAP. 2. Acute kidney injury which is now nonoliguric. Her creatinine is improving. We are going to continue fluids and we will see how she does. I did order some dopamine but I am not sure if we ever ended up needing to start that. She had been transiently hypotensive. 3. Small bowel obstruction. She has had a couple bowel movements but I think she still needs to be cleared out. Surgery is following. Nasogastric is in place. We are continuing to follow. DISPOSITION: Pending her clinical status but she is doing much better. This is finally a day of improvement on all fronts, so we will continue her treatments and follow. cc: Balta Fischer MD
--- NOTE | 2019-10-07 19:19 | PROVIDER PROGRESS NOTE ---
Progress Note Chief complaint: I was having coughing spells. HPI: Mrs. Corona is a 69-year-old white female with a past medical history of morbid obesity, hypertension, hypothyroidism, diabetes mellitus, and hypoventilation sleep apnea. During my assessment she was unable to tell me any details of why she was admitted other than she was having shortness of breath and coughing. She was able to tell me that she had some associated nausea with these episodes but could not recall when they started. She had no family at bedside. Her original history and physical states she was having hot flashes with coughing and shortness of breath that started last Monday night. When she presented to the emergency department she was diagnosed with acute on chronic hypoxemic, hypercapnic respiratory failure and chronic obstructive pulmonary disease exacerbation with possible pneumonia. She was treated with bronchodilators, supplemental O2, IV steroids, and IV levaquin. Her chest x-ray impression was cardiomegaly with pulmonary vascular congestion and her abdomen/pelvis CT with oral contrast showed mid to distal small bowel obstruction and a fatty infiltration of the liver. Surgery was consulted for the small bowel obstruction but want to treat her conservatively due to comorbidities. Her latest chest x-ray shows pulmonary edema as well. She has been receiving sodium phosphate enemas. Her admitting creatinine was 1.1 and peaked yesterday at 3.7. Today it is 2.9. Past medical history: morbid obesity, hypoventilation sleep apnea, hypertension, Gerd, depression, hypothyroidism, diabetes mellitus, diabetic nephropathy, chronic obstructive pulmonary disease. Past surgical history: cholecystectomy, hysterectomy, right total knee replacement, bilateral foot surgery for heel spurs, sister scopic exam with bilateral retrograde ureteropyelogram for irritative voided symptoms. Social history: she lives at home with her . She denies tobacco, alcohol, or illicit drug use. Family history: she is adopted. Allergies: codeine, latex, Demerol. Home medications: atorvastatin, diltiazem, levothyroxine, losartan potassium, Metformin, centrum silver, naproxen, omeprazole, ditropan, paroxetine, Mirapex, ranitidine, sucralfate Review of systems: a 14 point review of systems complete. All pertinent positives listed above in the HPI. Physical exam: temperature 98.3, pulse 85, respirations 19, blood pressure 108/67, 02 sat 94% on 3 L nasal cannula. General: obese white female lying in bed in no acute distress. HEENT: normocephalic, atraumatic, pupils equal and reactive, mucous membranes moist. Skin: warm and dry. Blanchable skin over the feet. Multiple scabs to toes. Neck: supple, unable to observe JVD due to body habitus. Cardiovascular: distant heart tones. Regular rate and rhythm. No murmurs or gallops noted. Respiratory: coarse wheezes throughout anteriorly Abdomen: obese, soft, nontender. Hypoactive bowel sounds. : not inspected, allen in place. Extremities: one +pitting Edema to bilateral hips and Trace edema to BLE. Neurological: drowsy, oriented to person and place. Labs: WBC 14, hemoglobin 12.0, hematocrit 39, platelet count 215, sodium 138, potassium 4.4, chloride 94, carbon dioxide 32, BUN 73, creatinine 2.9. Intake 3300, output 1750. Imaging: chest x-ray impression stable cardiomegaly, pulmonary vascular congestion, and mild pulmonary edema. KUB abdomen impression probable distal obstruction. Severe fecal impaction of the right colon. Assessment and plan: Acute kidney injury. Likely acute tubular necrosis from hypotension. Her BUN and creatinine have slightly improved today. Allen in place with strict I/Os. Blood pressure. In target. Fluid volume. Euvolemic. Anemia. In target. Electrolytes. In target. Acid-base balance. Stable. Stop bicarbonate. Medication review. No changes.
[2019-10-07] MEDS: LEVAQUIN 500 MG/D5W 500 MG/100 ML IVPB IV SCH (20:24)
[2019-10-08] MEDS: DUONEB (A & A) INH SCH ×5 (03:40→19:37)
[2019-10-08] MEDS: LOVENOX SUBQ SCH (05:31)
[2019-10-08] MEDS: HUMALOG SUBQ SCH ×4 (06:04→20:26)
[2019-10-08 06:16] LABS: HEMATOCRIT 40.4 % (37.0-47.0); HEMOGLOBIN 12.5 g/dL (12.0-16.0); MCHC 30.9 g/dL (33-37); MCV 90.4 FL (81-99); MPV 12.7 FL (7.4-10.4); RBC 4.47 XMIL (4.2-5.4); RDW 15.7 % (11.5-14.5); WBC 13.74 X1000 (4.8-10.8)
--- NOTE | 2019-10-08 06:45 | PULMONOLOGY PROGRESS NOTE ---
DATE: 10/07/2019 SUBJECTIVE: The patient is awake and alert. She reports she continues to remain hungry. OBJECTIVE: The patient has been afebrile for the last 24 hours. Blood pressure 117/73, heart rate 85, respiratory rate 17, and oxygen saturation 96% on 3 L per nasal cannula.HEENT: Pupils are equal and reactive. Oropharynx appears clear. Neck: Supple. Respiratory: Chest reveals shallow breath sounds bilaterally with basilar crackles. Cardiovascular: S1-S2. GI: Abdomen is distended with increased tympany. Extremities: Unchanged. LABORATORIES: Chest x-ray reveals shallow inspiration and cardiomegaly with mild vascular congestion. Flat plate of the abdomen reveals some fecal impaction of the right colon with diffuse hyperinflation of the small bowel. Sodium 138, potassium 4.4, chloride 94 bicarbonate 32, BUN 73, and creatinine 2.9. White blood count 14.05, hemoglobin 12.0, and platelets 215,000. IMPRESSION: A 69-year-old with: 1. Asthma exacerbation. This continues to improve. 2. Acute on chronic hypoxemic respiratory failure. 3. Small bowel obstruction. 4. Acute renal failure. 5. Morbid obesity. PLAN: 1. Fluid management per Nephrology, who has been consulted. 2. Cycle BiPAP and nasal cannula. 3. NPO with diet adjustment per Surgery. 4. Prognosis is guarded. cc: Aleksey Jung MD
[2019-10-08 07:48] LABS: CALCIUM 8.5 mg/dL (8.8-10.2); MAGNESIUM 1.8 mg/dL (1.5-2.7); POTASSIUM 4.2 mmol/L (3.5-5.1)
--- NOTE | 2019-10-08 09:08 | GENERAL SURGERY PROGRESS NOTE ---
DATE: 10/08/2019 SUBJECTIVE: Patient seems to be doing okay. Nursing staff reports no major issues. Patient says she is doing okay. OBJECTIVE: Vital Signs: Patient is currently afebrile. Her vital signs are stable. General: No acute distress. HEENT: Normocephalic, atraumatic. Pupils equal, round, reactive to light. Mucous membranes moist. Oropharynx benign. Neck: Supple. Trachea midline. Cardiovascular: Regular rate and rhythm. Lungs: Grossly clear. Abdomen: Morbidly obese but nontender. Extremities: Moves all extremities. Neurologic: Grossly intact. Skin: No signs of jaundice. Vascular: All extremities perfused. LABORATORY: Reviewed from yesterday. IMAGING: Abdominal film reviewed from yesterday. ASSESSMENT AND PLAN: A 69-year-old female with bowel obstruction. Bowel obstruction. At this time, I think it is resolving. It may be more related to constipation. If she does not seem to have more definitive return of bowel function, may need to consider enemas or some kind of bowel stimulant but at this time no immediate plans for surgical intervention. cc: Herman Fisher MD
[2019-10-08] MEDS: DULCOLAX PR SCH ×2 (09:15→20:26)
[2019-10-08] MEDS: PROTONIX IV SCH (12:28)
[2019-10-08] MEDS: SODIUM CHLORIDE 0.9% INJ SCH (12:29)
[2019-10-08] MEDS: CLINIMIX E 4.25%-5% SOLUTION 1,000 ML IV SCH ×2 (12:38→23:41)
--- NOTE | 2019-10-08 12:50 | PULMONOLOGY PROGRESS NOTE ---
DATE: 10/08/2019 SUBJECTIVE: The patient is awake and alert. She denies dyspnea. She is hungry. OBJECTIVE: Vital Signs: The patient had 2 bowel movements yesterday. She remains afebrile. Blood pressure 131/95, heart rate 93, respiratory rate 19, oxygen saturation 96%. HEENT: Pupils are equal and reactive. Oropharynx appears clear. Chest: Reveals good air entry. There is no wheezing. Cardiac: Distant heart sounds. Normal S1, normal S2. Abdomen: Obese with increased tympany. Extremities: Reveal trace edema. LABORATORIES: White blood count 13.7, hemoglobin 12.5, platelet count 200,000. Sodium 139, potassium 4.2, chloride 91, bicarbonate 35, BUN 57, creatinine 2. IMPRESSION: A 69-year-old with: 1. Asthma exacerbation. Her lung sounds are now clear. 2. Acute on chronic hypoxemic respiratory failure. 3. Small bowel obstruction. 4. Acute renal failure. 5. Morbid obesity with a body mass index of greater than 55. PLAN: 1. We will initiate Clinimix to prevent additional protein malnutrition. 2. Continue to cycle BiPAP and nasal cannula. 3. Follow up chest x-ray and KUB tomorrow. cc: Aleksey Jung MD
[2019-10-08] MEDS ORDERED: FLEET MINERAL OIL ENEMA PR SCH (13:23)
--- NOTE | 2019-10-08 14:03 | PROGRESS NOTE ---
DATE: 10/08/2019 SUBJECTIVE: She is awake, alert. She feels well. No major complaints. OBJECTIVE: Vital signs: Blood pressure 124/73, heart rate of 86, respiratory rate of 12, temperature 97.7 degrees, 98% on 3 L. Cardiovascular: Regular rate and rhythm. Pulmonary: Bilateral breath sounds clear to auscultation. Gastrointestinal: Soft, nontender, nondistended. Bowel sounds were positive. Extremities: She has nonpitting edema. LABORATORY DATA: White count is 13, hemoglobin and hematocrit 12 and 40, platelets of 200,000. Creatinine is at 2 which is an improvement from 2.9, she is steadily improving. PROBLEM LIST: 1. Acute respiratory failure due to obesity hypoventilation. She seems to be doing okay. Appreciate Pulmonary guidance. She is on BiPAP intermittently, difficult because of the nasogastric tube. 2. Acute kidney injury, likely now nonoliguric acute tubular necrosis. She seems to be improving. Urine output is good. Continue to follow. 3. Small-bowel obstruction. We will continue enemas. I think it is probably related to severe constipation. Plain films ordered for tomorrow. She has also been put on Clinimix. DISPOSITION: Pending her clinical status but overall, I think she is improving. cc: Balta Fischer MD
--- NOTE | 2019-10-08 18:02 | PROVIDER PROGRESS NOTE ---
Progress Note Subjective: She denies any uremic complaints. Objective: temperature 97.1, pulse 84, respirations 14, blood pressure 115/68, O2 sat 100% on 3 L nasal cannula. General: obese white female lying in bed in no acute distress. HEENT: normocephalic, atraumatic, pupils equal and reactive, mucous membranes dry. Skin: warm and dry. Multiple scabs to toes. Neck: supple, unable to observe JVD due to body habitus. Cardiovascular: distant heart tones. Regular rate and rhythm. No murmurs or gallops noted. Respiratory: coarse wheezes throughout anteriorly Abdomen: obese, soft, nontender. Hypoactive bowel sounds. : not inspected, allen in place. Extremities: one +pitting Edema to bilateral hips and Trace edema to BLE. Neurological: drowsy, oriented to person and place. Labs: WBC 13.74, hemoglobin 12.5, hematocrit 40.4, platelet count 200, sodium 139, potassium 4.2, chloride 91, carbon dioxide 35, BUN 57, creatinine 2.0, intake 1100, output 2525. Impression: Acute kidney injury. Likely acute tubular necrosis. Her BUN and creatinine have slightly improved today. Blood pressure. In target. Fluid volume. Euvolemic. Anemia. In target. Electrolytes. In target. Acid-base balance. Stable. Medication review.
[2019-10-08] MEDS: LEVAQUIN 500 MG/D5W 500 MG/100 ML IVPB IV SCH (20:27)
[2019-10-09] MEDS: DUONEB (A & A) INH SCH ×7 (00:17→23:03)
[2019-10-09] MEDS: LOVENOX SUBQ SCH (05:43)
[2019-10-09] MEDS: HUMALOG SUBQ SCH ×4 (06:14→20:36)
[2019-10-09 06:18] LABS: HEMATOCRIT 41.1 % (37.0-47.0); HEMOGLOBIN 12.8 g/dL (12.0-16.0); MCH 28.5 PG (27-31); MCHC 31.1 g/dL (33-37); MCV 91.5 FL (81-99); MPV 12.9 FL (7.4-10.4); RBC 4.49 XMIL (4.2-5.4); RDW 15.5 % (11.5-14.5); WBC 12.58 X1000 (4.8-10.8)
[2019-10-09 06:43] LABS: CREATININE 1.2 mg/dL (0.5-0.9); POTASSIUM 4.2 mmol/L (3.5-5.1)
--- NOTE | 2019-10-09 07:27 | Diag Imaging Result Doc PS360 ---
EXAM: CHEST-PORTABLE 10/09/2019 HISTORY: abnormal exam TECHNIQUE: AP portable at 0501 COMMENT: There is cardiomegaly. The inspiration is suboptimal. An NG tube passing below the diaphragm and a left PICC line with its tip in the superior vena cava. The inspiration is less optimal than on 10/07/2019. Considering this there has been no significant change. IMPRESSION: Cardiomegaly. Electronically signed by Gamal Gonzalez 10/09/2019 7:24 AM
--- NOTE | 2019-10-09 07:32 | Diag Imaging Result Doc PS360 ---
EXAM: KUB ABDOMEN 10/09/2019 HISTORY: SBO TECHNIQUE: KUB portable three views COMMENT: There is a large amount of gas and stool in the colon particularly in the ascending colon. There is also some small bowel gaseous dilatation. The stomach is not distended. There is an NG tube coiled in the fundus of the stomach. IMPRESSION: Constipation and ileus. Electronically signed by Gamal Gonzalez 10/09/2019 7:30 AM
--- NOTE | 2019-10-09 07:38 | GENERAL SURGERY PROGRESS NOTE ---
DATE: 10/09/2019 SUBJECTIVE: The patient seems to be doing okay. OBJECTIVE: Vital Signs: The patient is currently afebrile. Her vital signs are stable. General: No acute distress. Cardiovascular: Regular rate and rhythm. Lungs: Grossly clear. Abdomen: Soft, obese, but nontender. NG tube with minimal output. ASSESSMENT AND PLAN: A 69-year-old female with small bowel obstruction. Small bowel obstruction: At this time, it seems to be resolving. We will get her nasogastric tube out. It is okay for her to have clear liquids. cc: Herman Fisher MD
[2019-10-09] MEDS: DULCOLAX PR SCH ×2 (09:00→20:29)
[2019-10-09] MEDS: CLINIMIX E 4.25%-5% SOLUTION 1,000 ML IV SCH (12:04)
[2019-10-09] MEDS: PROTONIX IV SCH (12:04)
[2019-10-09] MEDS: SODIUM CHLORIDE 0.9% INJ SCH (12:04)
[2019-10-09] MEDS: MIRALAX PO SCH (12:15)
[2019-10-09] MEDS: LACTULOSE PO SCH ×2 (12:15→20:37)
--- NOTE | 2019-10-09 12:41 | PROGRESS NOTE ---
DATE: 10/09/2019 SUBJECTIVE: Patient has no major complaints. OBJECTIVE: Vital Signs: Blood pressure is 136/76, heart rate 94, respiratory rate of 17, temperature was 98.6 degrees. Cardiovascular: Regular rate and rhythm. Pulmonary: Bilateral breath sounds clear to auscultation. Gastrointestinal: Abdomen soft, nontender, nondistended. Bowel sounds are positive. LABORATORY DATA: White count is 12, hemoglobin and hematocrit 12 and 41, platelets 182,000. Basic was normal. Creatinine is down to 1.2. She is much improved. ASSESSMENT: 1. Acute kidney injury. This has resolved, probably tone down on her fluids when we can. Leave her on the nutrition till she is eating a little bit more steadily. 2. Small bowel obstruction is resolving. We will resume a more aggressive bowel regimen and follow. 3. Hypercapnic respiratory. Failure due to Pickwickian syndrome. We will continue, cycle BiPAP and follow. All her data points are improving. DISPOSITION: I think we are probably safe to go to step-down and see how she does. cc: Balta Fischer MD
--- NOTE | 2019-10-09 20:28 | PULMONOLOGY PROGRESS NOTE ---
DATE: 10/09/2019 SUBJECTIVE: The patient is awake and alert. She reports she had a bowel movement, but she is not passing flatus. OBJECTIVE: Vital Signs: The patient has been afebrile for the last 24 hours. Blood pressure 104/57, heart rate 91, respiratory rate 13, oxygen saturation 96%. HEENT: Pupils are equal and reactive. Oropharynx appears clear. Neck: Is thick, but supple. Chest: Reveals shallow breath sounds without significant wheezing. Cardiac: S1-S2. Abdomen: Is mildly distended with increased tympany. Extremities: Reveal trace edema. LABORATORIES: Chest x-ray reveals cardiomegaly with shallow inspiration. KUB reveals gaseous distention of the small bowel with large amount of stool in the ascending colon. White blood count 12.58, hemoglobin 12.8, platelet count 182,000. Sodium 140, potassium 4.2, chloride 94 bicarbonate 35, BUN 37, creatinine 1.2. IMPRESSION: A 69-year-old with 1. Asthma exacerbation. 2. Acute on chronic hypoxemic respiratory failure. 3. Constipation/small bowel obstruction. 4. Resolving acute renal failure. 5. Morbid obesity. PLAN: 1. Cautious diet advancement per General Surgery. 2. Continue current fluids pending improvement in abdominal exam. 3. Cycle BiPAP and nasal cannula. 4. Anticipate transfer to a step-down unit. cc: Aleksey Jung MD
[2019-10-09] MEDS: LEVAQUIN 500 MG/D5W 500 MG/100 ML IVPB IV SCH (20:34)
--- NOTE | 2019-10-09 21:45 | PROVIDER PROGRESS NOTE ---
Progress Note Subjective: She denies any uremic complaints. Noted that her NG tube was discontinued and she had a small bowel movement. Objective: temperature 98.6, pulse 89, respirations 19, blood pressure 111/65, 02 sat 99% on 3 L nasal cannula. General: obese white female lying in bed in no acute distress. HEENT: normocephalic, atraumatic, pupils equal and reactive, mucous membranes dry. Skin: warm and dry. Multiple scabs to toes with purple discoloration to bilateral feet. Neck: supple, unable to observe JVD due to body habitus. Cardiovascular: distant heart tones. Regular rate and rhythm. No murmurs or gallops noted. Respiratory: lungs clear throughout anteriorly Abdomen: obese, soft, nontender. Hypoactive bowel sounds. : not inspected, allen in place. Extremities: Trace pitting edema to bilateral hips and BLE. Neurological: drowsy, oriented to person and place. Labs: WBC 12.58, hemoglobin 12.8, hematocrit 41.1, platelet count 182, sodium 140, potassium 4.2, quarter at 94, carbon dioxide 35, BUN 37, creatinine 1.2. intake 1545, output 3850. Impression: Acute kidney injury. Likely acute tubular necrosis. Her BUN and creatinine have improved back to admitting levels. Excellent urine output. Recommend discontinue allen at earliest convenience. We will sign off but available if needed. Blood pressure. In target. Fluid volume. Euvolemic. Anemia. In target. Electrolytes. In target. Acid-base balance. Stable. Nutrition. Clear liquids and clinimix started.
[2019-10-10] MEDS: CLINIMIX E 4.25%-5% SOLUTION 1,000 ML IV SCH ×2 (00:01→13:03)
[2019-10-10] MEDS: DUONEB (A & A) INH SCH ×6 (03:30→23:35)
[2019-10-10] MEDS: LOVENOX SUBQ SCH (05:55)
[2019-10-10] MEDS: HUMALOG SUBQ SCH ×4 (06:05→20:24)
[2019-10-10 06:20] LABS: HEMATOCRIT 40.5 % (37.0-47.0); HEMOGLOBIN 12.3 g/dL (12.0-16.0); MCHC 30.4 g/dL (33-37); MCV 92.3 FL (81-99); MPV 13.4 FL (7.4-10.4); RBC 4.39 XMIL (4.2-5.4); RDW 15.3 % (11.5-14.5); WBC 12.13 X1000 (4.8-10.8)
[2019-10-10] MEDS: ZOFRAN IV PRN ×2 (06:47→10:30)
[2019-10-10 06:49] LABS: CALCIUM 9.5 mg/dL (8.8-10.2); CREATININE 1.1 mg/dL (0.5-0.9); POTASSIUM 4.2 mmol/L (3.5-5.1)
[2019-10-10] MEDS: DULCOLAX PR SCH ×2 (08:02→20:24)
[2019-10-10] MEDS: MIRALAX PO SCH (08:11)
[2019-10-10] MEDS: LACTULOSE PO SCH ×2 (08:11→20:24)
--- NOTE | 2019-10-10 08:17 | GENERAL SURGERY PROGRESS NOTE ---
DATE: 10/10/2019 SUBJECTIVE: Patient seems to be doing okay. OBJECTIVE: Vital Signs: Patient is currently afebrile. Her vital signs are stable. General: No acute distress, resting comfortably. Cardiovascular: Regular rate and rhythm. Lungs: Grossly clear. Abdomen: Obese but nontender. ASSESSMENT AND PLAN: A 69-year-old female with resolving small bowel obstruction. Small bowel obstruction, at this time seems to be resolving. Her NG tube is out. She is tolerating her diet. We will advance her to a full liquid diet. From a surgical point of view, no immediate plans for surgical intervention. cc: Herman Fisher MD
--- NOTE | 2019-10-10 18:07 | PROGRESS NOTE ---
DATE: 10/10/2019 SUBJECTIVE: She seems to be doing better. She is sitting up. I think she is eating. OBJECTIVE: Blood pressure is 107/66. Cardiovascular: Regular rate and rhythm. Pulmonary: Bilateral breath sounds. Clear to auscultation. Gastrointestinal: Soft, nontender, nondistended. Bowel sounds are positive, although she is still very firm and distended, but she is having bowel movements, from what I understand. LABORATORY DATA: Her white count is 12, hemoglobin and hematocrit 12 and 40, platelets 184,000. Creatinine is down to 1.1, continues to improve. PROBLEM LIST: 1. Acute kidney injury. That has resolved. I think we can probably take her off IV fluids. I know she is on Clinimix, but I would like to stop that after current infusion at the discretion of Dr. Jung. I can resume it if he feels it is necessary. 2. Small bowel obstruction. That seems to be doing better. She is having bowel movements. She is on a bowel regimen. Surgery is following. Her diet has been advanced. 3. Acute hypercapnic respiratory failure due to obesity-hypoventilation syndrome. She is still on BiPAP intermittently. 4. Disposition. We are still working with PT. I think she is probably stable for the floor. cc: Balta Fischer MD
[2019-10-10] MEDS: LEVAQUIN 500 MG/D5W 500 MG/100 ML IVPB IV SCH (20:24)
--- NOTE | 2019-10-10 20:33 | Diag Imaging Result Doc PS360 ---
ABDOMEN FLAT/UPRIGHT - 10/10/2019 INDICATION: sbo COMPARISON: 10/09/2019 FINDINGS: There is severe constipation particularly of the ascending colon. There is significant nonspecific gaseous distention of all the small bowel and colon. No free air. IMPRESSION: No change from prior. Electronically signed by Isaiah Dior 10/10/2019 8:30 PM
--- NOTE | 2019-10-10 22:00 | PULMONOLOGY PROGRESS NOTE ---
DATE: 10/10/2019 SUBJECTIVE: The patient is awake and alert. She reports she is starting to pass flatus. She did have a liquid bowel movement earlier today. OBJECTIVE: The patient has been afebrile for the last 24 hours. Blood pressure 125/76, heart rate 87, respiratory rate 18, oxygen saturation 100%. HEENT: Pupils are equal and reactive. Oropharynx appears clear. Neck: Supple. Chest: Good air entry bilaterally without wheezing. Cardiac: S1, S2. Abdomen: Mildly distended with increased tympany. Extremities: Without edema. LABORATORIES: White blood count 12.13, hemoglobin 12.3, platelet count 184,000. Sodium 140, potassium 4.2, chloride 95, bicarbonate 37, BUN 31, creatinine 1.1, glucose 110. IMPRESSION: A 69-year-old with: 1. Asthma exacerbation with continued improvement. 2. Acute renal failure, which is resolving. 3. Acute on chronic hypoxemic respiratory failure. 4. Small bowel obstruction/constipation. 5. Morbid obesity. PLAN: 1. Anticipate transfer to the floor today. 2. Diet as per General Surgery. 3. Cycle BiPAP and nasal cannula. cc: Aleksey Jung MD
[2019-10-11] MEDS: DUONEB (A & A) INH SCH ×7 (03:35→23:11)
[2019-10-11] MEDS: LOVENOX SUBQ SCH (06:07)
[2019-10-11 06:20] LABS: BASO# 0.02 X1000 (0.0-0.2); BASO% 0.1 % (0.0-0.8); EOS% 4.4 % (0.0-10.0); HEMATOCRIT 42.1 % (37.0-47.0); HEMOGLOBIN 12.5 g/dL (12.0-16.0); IMM GRAN% 1.5 % (0.0-0.5); LYMPH# 1.51 X1000 (1.2-3.4); LYMPH% 11.2 % (20.5-51.1); MCH 27.2 PG (27-31); MCHC 29.7 g/dL (33-37); MCV 91.5 FL (81-99); MONO# 1.55 X1000 (0.11-0.59); MONO% 11.5 % (1.7-9.3); MPV 12.6 FL (7.4-10.4); NEUT# 9.64 X1000 (1.4-6.5); NEUT% 71.3 % (42.2-75.2); PLT 236 X1000 (130-400); RDW 15.2 % (11.5-14.5); WBC 13.52 X1000 (4.8-10.8)
[2019-10-11] MEDS: HUMALOG SUBQ SCH ×4 (06:20→21:12)
[2019-10-11 06:28] LABS: CALCIUM 9.8 mg/dL (8.8-10.2); CREATININE 1.8 mg/dL (0.5-0.9); POTASSIUM 4.2 mmol/L (3.5-5.1)
[2019-10-11 06:54] LABS: EOS 8 % (1-10); LYMPHS 14 % (21-51); MONO 6 % (1-9); SEGS 64 % (42-75)
[2019-10-11] MEDS: MIRALAX PO SCH (09:13)
[2019-10-11] MEDS: LACTULOSE PO SCH ×2 (09:13→21:04)
[2019-10-11] MEDS: DULCOLAX PR SCH ×2 (09:14→21:11)
[2019-10-11] MEDS: ZOFRAN IV PRN (11:28)
[2019-10-11] MEDS ORDERED: FLEET MINERAL OIL ENEMA PR ONE (11:59)
[2019-10-11] MEDS ORDERED: RELISTOR SUBQ ONE (12:00)
[2019-10-11] MEDS: CLINIMIX E 4.25%-5% SOLUTION 1,000 ML IV SCH (13:08)
--- NOTE | 2019-10-11 13:09 | GENERAL SURGERY PROGRESS NOTE ---
DATE: 10/11/2019 SUBJECTIVE: The patient was transferred to the [facility]. She did have an episode of emesis last evening for which they have made her NPO. She had some enemas given the abdominal film showing constipation, which she has had some production from. The patient is currently not complaining of any nausea. OBJECTIVE: Vital Signs: Patient is currently afebrile. Her vital signs are stable. General: No acute distress. Cardiovascular: Regular rate and rhythm. Lungs: Grossly clear. Abdomen: Obese, soft, nontender. ASSESSMENT AND PLAN: A 69-year-old female with bowel obstruction. Bowel obstruction. At this time, I agree with making her NPO. She seems to be doing at least okay currently, but we will just kind of monitor for right now. cc: Herman Fisher MD
--- NOTE | 2019-10-11 18:43 | PROVIDER PROGRESS NOTE ---
Progress Note Dr. Gallagher Progress Note/Pulmonary and or critical care Subjective: The patient is lying in bed on NC 4L. She is awake and alert. She had episode of vomiting last night and has been staying NPO since then. She apparently has not been on BiPAP for several days. Input is appreciated from Dr. Fischer and other teams on the case. Objective: Vital Signs: T 97.9 (no fever in last 24 hours), ND 89, RR 16, BP 115/71 and SaO2 100% on NC 4L. Physical Examination: General: Morbidly obese. Lying in bed with no acute distress noted. HEENT: Normocephalic. Trachea midline. Mucosa pink and slightly dry. Pupils equal round reactive to light. Respiratory: Even and unlabored. Symmetrical excursion. Decreased air entry bilaterally. CVS: Regular rate and rhythm with S1 and S2 appreciated. Abdomen: Mildly distended with increased tympany. Extremities: Trace pedal edema. Neuro: A/Ox3. Speech fluent. Follow commands. Labs and Radiology: Laboratory Results 10/10/19 10/11/19 10/11/19 20:12 05:25 05:25 WBC 13.52 H RBC 4.60 Hgb 12.5 Hct 42.1 MCV 91.5 MCH 27.2 MCHC 29.7 L RDW Std Deviation 15.2 H Plt Count 236 MPV 12.6 H Immature Gran % (Auto) 1.5 H Neut % (Auto) 71.3 Lymph % (Auto) 11.2 L Placer % (Auto) 11.5 H Eos % (Auto) 4.4 Baso % (Auto) 0.1 Immature Gran # (Auto) 0.20 H Neut # (Auto) 9.64 H Lymph # (Auto) 1.51 Placer # (Auto) 1.55 H Eos # (Auto) 0.60 Baso # (Auto) 0.02 Segmented Neutrophils 64 Lymphocytes 14 L Monocytes 6 Eosinophils 8 Atypical Lymphocytes 4.0 Unidentified Cells 4.0 Sodium 138 Potassium 4.2 Chloride 90 L Carbon Dioxide 38 H Anion Gap 10 BUN 44 H Creatinine 1.8 H Estimated GFR/1.73 m2 28 BUN/Creatinine Ratio 24 Glucose 112 H POC Glucose 112 H Calculated Osmolality 288 Calcium 9.8 10/11/19 10/11/19 10/11/19 06:16 11:00 16:17 WBC RBC Hgb Hct MCV MCH MCHC RDW Std Deviation Plt Count MPV Immature Gran % (Auto) Neut % (Auto) Lymph % (Auto) Placer % (Auto) Eos % (Auto) Baso % (Auto) Immature Gran # (Auto) Neut # (Auto) Lymph # (Auto) Placer # (Auto) Eos # (Auto) Baso # (Auto) Segmented Neutrophils Lymphocytes Monocytes Eosinophils Atypical Lymphocytes Unidentified Cells Sodium Potassium Chloride Carbon Dioxide Anion Gap BUN Creatinine Estimated GFR/1.73 m2 BUN/Creatinine Ratio Glucose POC Glucose 83 103 117 H Calculated Osmolality Calcium Assessment: Asthma exacerbation. Improving. Acute renal failure. Worsening today. Acute on chronic hypoxemic hypercapnic respiratory failure. Small bowel obstruction/constipation. Resolving. Morbid obesity. Prognosis is guraded. Plan: Antibiotic (Levaquin). Bronchodilators. Cycling BiPAP and nasal cannula. We order BiPAP 16/8 qhs and as needed. Weaning oxygen as tolerated. Advancing diet per General Surgery. DVT prophylaxis. Physical therapy. Total evaluation time in minutes: 32.
[2019-10-11] MEDS: LEVAQUIN 500 MG/D5W 500 MG/100 ML IVPB IV SCH (21:04)
--- NOTE | 2019-10-11 23:36 | PROGRESS NOTE ---
DATE: 10/11/2019 SUBJECTIVE: The patient has no major complaints, although last night I think she started throwing up. She was made NPO. They said she had pieces of formed stool, that was at 2 in the morning. Her plain films, actually she had them last night, showed severe constipation, which she has had for several days now. Her creatinine has gone back up to 1.8, despite being normal previously. OBJECTIVE: Blood pressure 112/75, heart rate of 101, respiratory 16, temperature 97.6 degrees, 100% on 4 L. Cardiovascular: Regular rate and rhythm.Pulmonary: Bilateral breath sounds, clear to auscultation. GI was soft, still very distended, but she had bowel sounds throughout. LABORATORY DATA: Her white count is 13, hemoglobin and hematocrit 12 and 42, platelets 236,000. Creatinine is back up to 1.8, where it had previously been normal. We did stop fluids yesterday. PROBLEM LIST: 1. Acute kidney injury is still kind of up and down. I am going to resume her Clinimix because she is still not eating very well. 2. Small-bowel obstruction. I felt that was resolving. Her x-ray still shows a lot of dilation, a lot of stool, but she has air down to her rectum. I do not think she had a bowel movement. It is recorded she had a bowel movement yesterday and today, but I still think she has a lot of clearing out to do. I am not sure at some point we may need to get GI involved for decompression, but we will see. 3. Hypercapnic respiratory failure, obesity, hypoventilation. We will continue BiPAP at night, O2 as needed. DISPOSITION: We are working with PT. The plan is to see how she does, decide about rehab needs. cc: Balta Fischer MD
[2019-10-12] MEDS: DUONEB (A & A) INH SCH ×6 (03:54→22:54)
[2019-10-12] MEDS: CLINIMIX E 4.25%-5% SOLUTION 1,000 ML IV SCH ×2 (04:04→18:45)
[2019-10-12] MEDS: LOVENOX SUBQ SCH (05:56)
[2019-10-12] MEDS: HUMALOG SUBQ SCH ×4 (06:34→20:56)
[2019-10-12 06:46] LABS: BASO# 0.03 X1000 (0.0-0.2); BASO% 0.2 % (0.0-0.8); EOS# 0.91 X1000 (0.0-0.7); EOS% 5.7 % (0.0-10.0); HEMATOCRIT 39.2 % (37.0-47.0); HEMOGLOBIN 11.8 g/dL (12.0-16.0); IMM GRAN# 0.29 X1000 (0.0-0.04); IMM GRAN% 1.8 % (0.0-0.5); LYMPH# 1.85 X1000 (1.2-3.4); LYMPH% 11.5 % (20.5-51.1); MCH 27.5 PG (27-31); MCHC 30.1 g/dL (33-37); MCV 91.4 FL (81-99); MONO# 1.42 X1000 (0.11-0.59); MONO% 8.8 % (1.7-9.3); MPV 12.7 FL (7.4-10.4); NEUT# 11.56 X1000 (1.4-6.5); PLT 211 X1000 (130-400); RBC 4.29 XMIL (4.2-5.4); RDW 15.3 % (11.5-14.5); WBC 16.06 X1000 (4.8-10.8)
[2019-10-12 07:21] LABS: CALCIUM 9.2 mg/dL (8.8-10.2); CREATININE 1.6 mg/dL (0.5-0.9); MAGNESIUM 1.7 mg/dL (1.5-2.7)
[2019-10-12] MEDS: LACTULOSE PO SCH ×2 (10:02→20:57)
[2019-10-12] MEDS: MIRALAX PO SCH (10:02)
[2019-10-12] MEDS: DULCOLAX PR SCH ×2 (10:03→20:57)
--- NOTE | 2019-10-12 11:30 | Diag Imaging Result Doc PS360 ---
EXAM: CHEST-PORTABLE HISTORY: dyspnea TECHNIQUE: Single view COMPARISON: 10/09/2019 FINDINGS: Poor inspiratory effort. The heart is enlarged. Mild pulmonary edema. This is less pronounced. No change in the left PICC line. There is a small left pleural effusion. IMPRESSION: Mild improvement Electronically signed by Alfredo Lemon 10/12/2019 11:28 AM
--- NOTE | 2019-10-12 11:32 | Diag Imaging Result Doc PS360 ---
EXAM: ABDOMEN FLAT/UPRIGHT HISTORY: sbo TECHNIQUE: Four views COMPARISON: 06/09/2020 FINDINGS: There is a large amount stool in the proximal colon. There continue to be air distended loops of small bowel and colon. No organomegaly. IMPRESSION: Persistent constipation and possible ileus Electronically signed by Alfredo Lemon 10/12/2019 11:30 AM
[2019-10-12 11:43] LABS: ALLEN TEST YES; BE 11.8 mmoll (-3.0-3.0); BLOOD TYPE ARTERIAL; METHB 1.2 % (0.0-1.5); MODALITY CANNULA; O2(CT) 16.4 mL/dL (15.0-23.0); O2HB 93.3 % (95.0-99.0); PO2(98.6) 69 mmHg (60-100); SAMPLE BLOOD; SAO2 96.9 % (95.0-100.0); THB 12.5 g/dL (11.5-17.4); pH(98.6) 7.39 (7.35-7.45)
[2019-10-12 11:46] LABS: PCO2(98.6) 65 mmHg (35-45)
--- NOTE | 2019-10-12 14:22 | PROGRESS NOTE ---
DATE: 10/12/2019 INTERVAL HISTORY: The patient doing relatively well. No further vomiting since yesterday morning. Dyspnea on exertion stable. Oxygenation approximately stable. Still requiring supplemental oxygen at night, which she is on 3 L at home. No new complaints. No acute events overnight. REVIEW OF SYSTEMS: Twelve point review of systems negative except as per interval history. LABS: WBC 16.0, hemoglobin 11.8, hematocrit 39.2, platelets 211,000. ABG with pH 7.39, pCO2 65, PO2 69, O2 saturation 97% on 4 L by nasal cannula. Sodium 140, potassium 4, BUN 53, creatinine 1.6, glucose 99 to 107, magnesium 1.7 next. IMAGING: Abdominal x-ray with persistent constipation, likely ileus. Chest x-ray with really proximally, stable, but read as mild improvement in mild edema. VITALS: T-max 98.2 degrees, pulse 89, respirations 20, blood pressure 108/61. O2 saturation 99% on 4 L by nasal cannula. PHYSICAL EXAMINATION: General: No acute distress. Vitals: As above. HEENT: Normocephalic, atraumatic. Moist mucous membranes. No cervical adenopathy. Cardiovascular: Regular rate and rhythm. No rubs or gallops. Pulmonary: Lungs clear to auscultation bilaterally within the limits of body habitus. Abdomen: Soft, markedly obese, but probably a little distended as well. Bowel sounds present. Neurologic: Cranial nerves grossly intact. No focal deficits identified. Extremities: Peripheral pulses decreased but present. No cyanosis. Psychiatric: Normal mood and affect. Asleep but easily arousable. Oriented x3. ASSESSMENT AND PLAN: 1. Small bowel obstruction. Had some pretty significant vomiting yesterday but improved, but no further nausea or vomiting today. Discussed with surgery. There is command continuing to keep her NPO. So recommend placing NG tube if the patient begins vomiting again. We will monitor x-ray and see how she does. 2. Acute kidney injury on possible chronic kidney disease 3. Exact baseline not entirely clear. Was as low as 1.0 in mid 2019, but the best has been here has been 1.1. Overall improved from earlier in the admission but creatinine still bouncing around quite a bit. 1.6 today. It was up to 3.7 at its highest. Continue monitoring. We will continue deferring any diuretic. 3. Acute on chronic hypoxic and hypercapnic respiratory failure. The patient with morbid obesity and Pickwickian syndrome. She is on oxygen at home while asleep, which was continued here. Also with significant CO2 retention, which appears to be likely baseline on most recent ABG. May also have had an aspect of asthma exacerbation on admission, but no wheezing at this point, so that appears to have resolved. Respiratory status is essentially baseline now. The patient counseled on diet and exercise. DISPOSITION: The patient continues NPO as per surgery. Once her small bowel obstruction is resolved, then we will see where she is and she may or may not need rehab placement. Appears to be stable for the floor at this point.
--- NOTE | 2019-10-12 15:09 | GENERAL SURGERY PROGRESS NOTE ---
DATE: 10/12/2019 SUBJECTIVE: No further vomiting since yesterday morning. She has been made NPO. With her enemas she did have a bowel movement. OBJECTIVE: Vitals: No fevers. Pulse 89, blood pressure 108/61. General: She is alert, morbidly obese. Cardiovascular: Normal rate. Abdomen: Obese but soft, nontender, nondistended. LABORATORY DATA: White count up to 16, hematocrit 39. I reviewed her ABGs. She has significant respiratory hypercapnia. Creatinine is 1.6. ASSESSMENT AND PLAN: A 69-year-old female, most likely ileus, possible [place] syndrome. I have reviewed her imaging. I have asked the nurse to place a rectal tube. We will keep her nothing by mouth. If she vomits again we will need to place an nasogastric tube. The patient is apprehensive for this right now. We will continue to follow her but I would keep her strictly nothing by mouth. cc: Gifty Felix MD
--- NOTE | 2019-10-12 19:13 | PROVIDER PROGRESS NOTE ---
Progress Note Dr. Gallagher Progress Note/Pulmonary and or critical care Subjective: The patient is lying in bed on NC 3L. She appears more alert today. She used BiPAP last night. She has no complaint this time. at the bedside. Input is appreciated from Dr. Zayas and other teams on the case. Objective: Vital Signs: T 97.5 (no fever in last 24 hours), NV 89, RR 20, BP 108/61 and SaO2 99% on NC 4L. Physical Examination: General: Morbidly obese. Lying in bed with no acute distress noted. HEENT: Normocephalic. Trachea midline. Mucosa pink and slightly dry. Pupils equal round reactive to light. Respiratory: Even and unlabored. Symmetrical excursion. Decreased air entry bilaterally. CVS: Regular rate and rhythm with S1 and S2 appreciated. Abdomen: Mildly distended with increased tympany. Extremities: Trace pedal edema. Neuro: A/Ox3. Speech fluent. Follow commands. Labs and Radiology: Laboratory Results 10/11/19 10/12/19 10/12/19 19:41 05:42 05:42 WBC 16.06 H RBC 4.29 Hgb 11.8 L Hct 39.2 MCV 91.4 MCH 27.5 MCHC 30.1 L RDW Std Deviation 15.3 H Plt Count 211 MPV 12.7 H Immature Gran % (Auto) 1.8 H Neut % (Auto) 72.0 Lymph % (Auto) 11.5 L [place] % (Auto) 8.8 Eos % (Auto) 5.7 Baso % (Auto) 0.2 Immature Gran # (Auto) 0.29 H Neut # (Auto) 11.56 H Lymph # (Auto) 1.85 [place] # (Auto) 1.42 H Eos # (Auto) 0.91 H Baso # (Auto) 0.03 Specimen Type Sample Site pH pCO2 pO2 HCO3 Base Excess Oxyhemoglobin ABG O2 Sat (Calculated) ABG O2 Saturation ABG Carboxyhemoglobin ABG Methemoglobin Júnior Test A-a O2 Difference Total Hemoglobin Lactate Liter Flow Blood Gas Modality FiO2 % Sodium 140 Potassium 4.0 Chloride 93 L Carbon Dioxide 34 Anion Gap 13 BUN 53 H Creatinine 1.6 H Estimated GFR/1.73 m2 32 BUN/Creatinine Ratio 33 Glucose 107 H POC Glucose 116 H Calculated Osmolality 294 Calcium 9.2 Magnesium 1.7 0210/12/19 10/12/19 06:23 10:51 11:35 WBC RBC Hgb Hct MCV MCH MCHC RDW Std Deviation Plt Count MPV Immature Gran % (Auto) Neut % (Auto) Lymph % (Auto) [place] % (Auto) Eos % (Auto) Baso % (Auto) Immature Gran # (Auto) Neut # (Auto) Lymph # (Auto) [place] # (Auto) Eos # (Auto) Baso # (Auto) Specimen Type ARTERIAL Sample Site R RADIAL pH 7.39 pCO2 65 H* pO2 69 HCO3 34.0 H Base Excess 11.8 H Oxyhemoglobin 93.3 L ABG O2 Sat (Calculated) 16.4 ABG O2 Saturation 96.9 ABG Carboxyhemoglobin 2.50 ABG Methemoglobin 1.2 Júnior Test YES A-a O2 Difference 106.0 Total Hemoglobin 12.5 Lactate 0.80 Liter Flow 4.0 Blood Gas Modality CANNULA FiO2 % 36.0 Sodium Potassium Chloride Carbon Dioxide Anion Gap BUN Creatinine Estimated GFR/1.73 m2 BUN/Creatinine Ratio Glucose POC Glucose 84 99 Calculated Osmolality Calcium Magnesium 10/12/19 16:20 WBC RBC Hgb Hct MCV MCH MCHC RDW Std Deviation Plt Count MPV Immature Gran % (Auto) Neut % (Auto) Lymph % (Auto) [place] % (Auto) Eos % (Auto) Baso % (Auto) Immature Gran # (Auto) Neut # (Auto) Lymph # (Auto) [place] # (Auto) Eos # (Auto) Baso # (Auto) Specimen Type Sample Site pH pCO2 pO2 HCO3 Base Excess Oxyhemoglobin ABG O2 Sat (Calculated) ABG O2 Saturation ABG Carboxyhemoglobin ABG Methemoglobin Júnior Test A-a O2 Difference Total Hemoglobin Lactate Liter Flow Blood Gas Modality FiO2 % Sodium Potassium Chloride Carbon Dioxide Anion Gap BUN Creatinine Estimated GFR/1.73 m2 BUN/Creatinine Ratio Glucose POC Glucose 115 H Calculated Osmolality Calcium Magnesium Assessment: Asthma exacerbation. Improving. Acute renal failure. Mild improvement. Acute on chronic hypoxemic hypercapnic respiratory failure. Patient stays hyperc apnic with some improvement on pCO2. Mild pulmonary edema with a small left pleural effusion. CXR today shows mild improvement. Small bowel obstruction/constipation. Resolving. Morbid obesity with EMILIANO. Prognosis is guraded. Plan: Antibiotic (Levaquin). Bronchodilators. Cycling BiPAP and nasal cannula. We titrated oxygen and BiPAP settings to patients needs per clinical protocol. We keep monitoring patients response closely. Advancing diet per General Surgery. DVT prophylaxis. Physical therapy. We will follow up ABG tomorrow. Ok to be transferred to the medical floor from a pole maker standpoint. Total evaluation time in minutes: 31.
[2019-10-12] MEDS: LEVAQUIN 500 MG/D5W 500 MG/100 ML IVPB IV SCH (20:57)
[2019-10-12] MEDS: MORPHINE IV PRN (20:57)
[2019-10-13] MEDS: DUONEB (A & A) INH SCH ×6 (03:05→23:07)
[2019-10-13 05:16] LABS: BLOOD TYPE ARTERIAL; SAMPLE BLOOD; pH(98.6) 7.49 (7.35-7.45)
[2019-10-13 05:17] LABS: HCO3-(ACT) 36.6 mmoll (20.0-26.0); PCO2(98.6) 48 mmHg (35-45); PO2(98.6) 154 mmHg (60-100); THB 11.9 g/dL (11.5-17.4)
[2019-10-13 05:18] LABS: MODALITY BI PAP
[2019-10-13 05:19] LABS: ALLEN TEST YES
[2019-10-13 05:25] LABS: SRATE 4 BPM
[2019-10-13] MEDS: HUMALOG SUBQ SCH ×2 (06:03→22:45)
[2019-10-13] MEDS: LOVENOX SUBQ SCH (06:07)
[2019-10-13] MEDS: CLINIMIX E 4.25%-5% SOLUTION 1,000 ML IV SCH ×2 (08:49→22:44)
[2019-10-13] MEDS: MIRALAX PO SCH (08:49)
[2019-10-13] MEDS: DULCOLAX PR SCH ×2 (08:49→22:45)
[2019-10-13] MEDS: LACTULOSE PO SCH ×2 (08:49→22:45)
[2019-10-13] MEDS: MORPHINE IV PRN (09:53)
--- NOTE | 2019-10-13 13:44 | PROGRESS NOTE ---
DATE: 10/13/2019 INTERVAL HISTORY: The patient continues to have some intermittent hypoxia when she naps. Again discussed with the patient and nursing that if she is going to be asleep at all she needs to be on either CPAP or BiPAP because of her significant sleep apnea. Oxygenation when she is awake is actually pretty reasonable. No new complaints. No other acute events. REVIEW OF SYSTEMS: 12 point review of systems negative except as per interval history. LABS: ABG wtih pH 7.49 PCO2 48, PO2 154, O2 saturation 99% on 35% BiPAP. A CBC and BMP pending. Glucose 84 to 135. VITAL SIGNS: T-max 98.3 degrees, pulse respirations 18, blood pressure 108/72 O2 saturation 91% on 4 L by nasal. PHYSICAL EXAMINATION: General: No acute distress. Vitals: As above. HEENT: Normocephalic, atraumatic. Moist mucous membranes. No cervical adenopathy. Cardiovascular: Regular rate and rhythm. No murmurs or gallops. Lungs: Remain largely clear within limits of body habitus. Abdomen: Markedly obese, mildly distended. Bowel sounds slightly decreased, but present. Neurologic: Cranial nerves grossly intact. No focal deficits identified. Extremities: Peripheral pulses decreased but present. No cyanosis. Psychiatric: Normal mood and affect. Asleep but easily arousable. Oriented x3. Once aroused. ASSESSMENT AND PLAN: 1. Small bowel obstruction. Pretty significant vomiting a couple days ago, but has been doing well since then. Surgery following. Yesterday they recommended we continue her current NPO. We will see what they say today. If patient does have another episode of vomiting, we will place nasogastric tube. Monitor imaging and see how she does. 2. Acute kidney injury on likely chronic kidney disease 3. Exact baseline not entirely clear but definitely increased from baseline on admission with creatinine 3.7. It has bounced from quite a bit of 1.6 yesterday but chemistries still pending today. Monitor kidney function. See how she does. 3. Acute on chronic hypoxic and hypercapnic respiratory failure, Pickwickian syndrome, obstructive sleep apnea. The patient on 3 L oxygen at home while asleep, pretty stable on that here. CO2 retention also improved. May have had an aspect of asthma exacerbation on admission but has not had any wheezing over the last 2 to 3 days. Oxygenation while awake is pretty reasonable, but patient naps a lot and if she is not on BiPAP or CPAP she desaturates while sleeping. Continue monitoring. Patient counseled on diet and exercise. DISPOSITION: The patient remains NPO as per surgery. Monitoring kidney function. If kidneys stabilize, then anticipate discharge once were able to advance her diet but that may be a while yet. We are going to get physical therapy to see her to assess for need for home health or rehab placement on discharge.
--- NOTE | 2019-10-13 15:26 | GENERAL SURGERY PROGRESS NOTE ---
DATE: 10/13/2019 SUBJECTIVE: She has had a bowel movement. No further vomiting. Abdominal distention is improving. No pain. No fevers. OBJECTIVE: Pulse 83, blood pressure 108/72. General: She is alert. Cardiovascular: Normal rate. Pulmonary: No increased work of breathing currently. Abdomen: Soft, obese but nontender, nondistended. She had an ABG that showed improvement in her gas exchange. No new CBC. ASSESSMENT AND PLAN: A 69-year-old female with ileus versus bowel obstruction. She is improving with her stimulation from below. No further vomiting. We will continue bowel rest and peripheral nutrition and advance her diet as tolerated in the next couple days. cc: Gifty Felix MD
--- NOTE | 2019-10-13 17:10 | PROVIDER PROGRESS NOTE ---
Progress Note Dr. Gallagher Progress Note/Pulmonary and or critical care Subjective: The patient is lying in bed on NC 4L. She used BiPAP last night. She states she is feeling better. She has a basin by the bedside, but no episode of N/V this morning. She did have a small BM this morning. She stays on NPO per General Surgery. at the bedside. Input is appreciated from Dr. Zayas and other teams on the case. Objective: Vital Signs: T 98.3 (no fever in last 24 hours), AZ 86, RR 20, BP 141/75 and SaO2 95% on NC 4L. Physical Examination: General: Morbidly obese. Lying in bed with no acute distress noted. HEENT: Normocephalic. Trachea midline. Mucosa pink and slightly dry. Pupils equal round reactive to light. Respiratory: Even and unlabored. Symmetrical excursion. Decreased air entry bilaterally. CVS: Regular rate and rhythm with S1 and S2 appreciated. Abdomen: Mildly distended with increased tympany. Extremities: Trace pedal edema. Some fingers have chronic fungus-infection type lesions noted. Neuro: A/Ox3. Speech fluent. Follow commands. Labs and Radiology: Laboratory Results 10/12/19 10/13/19 10/13/19 20:23 04:52 05:40 Specimen Type ARTERIAL Sample Site R RADIAL pH 7.49 H pCO2 48 H pO2 154 H HCO3 36.6 H Base Excess 13.0 H ABG O2 Saturation 99.0 Júnior Test YES Total Hemoglobin 11.9 Blood Gas Modality BI PAP Spontaneous Rate 4 FiO2 % 35.0 Inspiratory BiPAP 15.0 Expiratory BiPAP 6.0 POC Glucose 135 H 97 10/13/19 10/13/19 10:42 15:48 Specimen Type Sample Site pH pCO2 pO2 HCO3 Base Excess ABG O2 Saturation Júnior Test Total Hemoglobin Blood Gas Modality Spontaneous Rate FiO2 % Inspiratory BiPAP Expiratory BiPAP POC Glucose 106 H 124 H Laboratory Results 10/12/19 10/13/19 10/13/19 20:23 04:52 05:40 Specimen Type ARTERIAL Sample Site R RADIAL pH 7.49 H pCO2 48 H pO2 154 H HCO3 36.6 H Base Excess 13.0 H ABG O2 Saturation 99.0 Júnior Test YES Total Hemoglobin 11.9 Blood Gas Modality BI PAP Spontaneous Rate 4 FiO2 % 35.0 Inspiratory BiPAP 15.0 Expiratory BiPAP 6.0 POC Glucose 135 H 97 10/13/19 10/13/19 10:42 15:48 Specimen Type Sample Site pH pCO2 pO2 HCO3 Base Excess ABG O2 Saturation Júnior Test Total Hemoglobin Blood Gas Modality Spontaneous Rate FiO2 % Inspiratory BiPAP Expiratory BiPAP POC Glucose 106 H 124 H Assessment: Asthma exacerbation. Improved. Acute renal failure. Mild improvement. Acute on chronic hypoxemic hypercapnic respiratory failure. Hypercapnia compensated with pCO2 48 this morning. Mild pulmonary edema with a small left pleural effusion. Improving. Small bowel obstruction/constipation. Resolving. General Surgery on board. Morbid obesity with EMILIANO. Plan: Antibiotic (Levaquin). Bronchodilators. Cycling BiPAP and nasal cannula. We titrated oxygen and BiPAP settings to patients needs per clinical protocol. We keep monitoring patients response closely. Stay NPO per General Surgery. DVT prophylaxis. Physical therapy. We will follow up ABG tomorrow.
[2019-10-14] MEDS: DUONEB (A & A) INH SCH ×5 (03:09→21:18)
[2019-10-14 04:56] LABS: ALLEN TEST YES; BE 7.6 mmoll (-3.0-3.0); BLOOD TYPE ARTERIAL; HCO3-(ACT) 30.8 mmoll (20.0-26.0); METHB 1.2 % (0.0-1.5); O2(CT) 12.6 mL/dL (15.0-23.0); O2HB 91.8 % (95.0-99.0); PO2(98.6) 63 mmHg (60-100); SAMPLE BLOOD; SAO2 94.9 % (95.0-100.0); THB 9.7 g/dL (11.5-17.4); pH(98.6) 7.36 (7.35-7.45)
[2019-10-14 05:03] LABS: PCO2(98.6) 61 mmHg (35-45)
[2019-10-14 05:30] LABS: BASO# 0.03 X1000 (0.0-0.2); BASO% 0.2 % (0.0-0.8); EOS# 0.51 X1000 (0.0-0.7); EOS% 3.7 % (0.0-10.0); HEMATOCRIT 39.3 % (37.0-47.0); HEMOGLOBIN 11.8 g/dL (12.0-16.0); IMM GRAN# 0.21 X1000 (0.0-0.04); IMM GRAN% 1.5 % (0.0-0.5); LYMPH# 1.26 X1000 (1.2-3.4); LYMPH% 9.1 % (20.5-51.1); MCH 27.2 PG (27-31); MCV 90.6 FL (81-99); MONO% 8.7 % (1.7-9.3); MPV 12.3 FL (7.4-10.4); NEUT# 10.61 X1000 (1.4-6.5); NEUT% 76.8 % (42.2-75.2); PLT 240 X1000 (130-400); RBC 4.34 XMIL (4.2-5.4); RDW 15.5 % (11.5-14.5); WBC 13.82 X1000 (4.8-10.8)
[2019-10-14 06:05] LABS: CALCIUM 8.9 mg/dL (8.8-10.2); CREATININE 1.7 mg/dL (0.5-0.9); POTASSIUM 4.3 mmol/L (3.5-5.1)
[2019-10-14] MEDS: LOVENOX SUBQ SCH (06:20)
[2019-10-14] MEDS: HUMALOG SUBQ SCH ×4 (06:20→22:42)
--- NOTE | 2019-10-14 06:52 | GENERAL SURGERY PROGRESS NOTE ---
DATE: 10/14/2019 SUBJECTIVE: The patient seems to be doing okay. She says she is not sick to her stomach. Nursing staff reports no major issues. OBJECTIVE: Vital Signs: The patient is currently afebrile. Her vital signs are stable. General Examination: No acute distress. Cardiovascular: Regular rate and rhythm. Lungs: Grossly clear. Abdomen: Soft, obese but nontender. ASSESSMENT AND PLAN: A 69-year-old female with resolving small bowel obstruction. Small bowel obstruction. At this time, she has had some degree of return of bowel function. She has not had vomiting. We will start her on a clear liquid diet and see how she does. Discussed with nurse. If she seems to get sick to her stomach, we will make her back down to nothing per oral. cc: Herman Fisher MD
[2019-10-14 07:47] LABS: MODALITY CANNULA
[2019-10-14] MEDS: LACTULOSE PO SCH ×3 (09:30→21:58)
[2019-10-14] MEDS: MIRALAX PO SCH (09:48)
[2019-10-14] MEDS: DULCOLAX PR SCH ×4 (09:55→22:06)
[2019-10-14] MEDS: ZOFRAN IV PRN ×2 (11:20→14:55)
[2019-10-14] MEDS: CLINIMIX E 4.25%-5% SOLUTION 1,000 ML IV SCH (11:56)
--- NOTE | 2019-10-14 14:24 | PROGRESS NOTE ---
DATE: 10/14/2019 SUBJECTIVE: The patient looks more with it today. She says she has not had any more emesis. She had some nausea. She has had bowel movements. OBJECTIVE: Vital signs: Blood pressure is 101/62, heart rate of 85, respiratory rate 22, temperature 97.9 degrees, 93% on 4 L. Cardiovascular: Regular rate and rhythm. Pulmonary: Bilateral breath sounds. Clear to auscultation. GI: Soft, nontender, nondistended. Bowel sounds are positive. LABORATORY: White count 13, hemoglobin and hematocrit 11 and 39, platelets 242,000. PH 7.36, pCO2 61, PaO2 63. BUN and creatinine of 70 and 1.7. PROBLEM LIST: 1. Small bowel obstruction. She seems to be improving. She has been put on clears. I will repeat films tomorrow. I still think she is probably somewhat constipated. 2. Chronic renal failure stage 3. Her creatinine is stable at this point. 3. Acute on chronic hypoxic, hypercapnic respiratory failure due to Pickwickian syndrome, obstructive sleep apnea. She is on 4 L and seems to be stable. DISPOSITION: I think once her diet has been advanced and overall she stabilizes, anticipate discharge soon, hopefully another day or so. Rehab is an option but I do not think the patient is very active at all at baseline. So, we will follow. cc: Balta Fischer MD
[2019-10-14] MEDS: MORPHINE IV PRN (14:54)
[2019-10-14] MEDS ORDERED: D5 1/2 NS 1,000 ML IV SCH (22:00)
[2019-10-14] MEDS ORDERED: MYLICON DROPS PO PRN (23:13)
[2019-10-14] MEDS: TUMS PO PRN (23:29)
[2019-10-15] MEDS: DUONEB (A & A) INH SCH ×3 (00:22→07:37)
[2019-10-15] MEDS: TUMS PO PRN (02:40)
[2019-10-15] MEDS: CLINIMIX E 4.25%-5% SOLUTION 1,000 ML IV SCH ×2 (03:08→06:22)
[2019-10-15 05:16] LABS: BASO# 0.03 X1000 (0.0-0.2); BASO% 0.2 % (0.0-0.8); EOS# 0.42 X1000 (0.0-0.7); EOS% 2.5 % (0.0-10.0); HEMATOCRIT 38.4 % (37.0-47.0); IMM GRAN# 0.12 X1000 (0.0-0.04); IMM GRAN% 0.7 % (0.0-0.5); LYMPH# 1.31 X1000 (1.2-3.4); LYMPH% 7.7 % (20.5-51.1); MCH 27.7 PG (27-31); MCHC 31.3 g/dL (33-37); MCV 88.7 FL (81-99); MONO# 1.74 X1000 (0.11-0.59); MONO% 10.2 % (1.7-9.3); MPV 12.1 FL (7.4-10.4); NEUT% 78.7 % (42.2-75.2); PLT 269 X1000 (130-400); RBC 4.33 XMIL (4.2-5.4); RDW 15.5 % (11.5-14.5); WBC 17.02 X1000 (4.8-10.8)
[2019-10-15 05:28] LABS: ALLEN TEST YES; BE 4.6 mmoll (-3.0-3.0); BLOOD TYPE ARTERIAL; HCO3-(ACT) 28.4 mmoll (20.0-26.0); PO2(98.6) 78 mmHg (60-100); SAMPLE BLOOD; pH(98.6) 7.36 (7.35-7.45)
[2019-10-15 05:31] LABS: PCO2(98.6) 56 mmHg (35-45)
[2019-10-15 05:32] LABS: MODALITY CANNULA
[2019-10-15 05:54] LABS: CALCIUM 9.1 mg/dL (8.8-10.2); CREATININE 2.7 mg/dL (0.5-0.9); POTASSIUM 4.1 mmol/L (3.5-5.1)
[2019-10-15] MEDS: LOVENOX SUBQ SCH (06:22)
[2019-10-15] MEDS: HUMALOG SUBQ SCH (06:27)
--- NOTE | 2019-10-15 07:00 | PULMONOLOGY PROGRESS NOTE ---
DATE: 10/14/2019 SUBJECTIVE: The patient is awake and alert. She wants to go home. She has had 2 bowel movements. She is trying p.o. liquids. OBJECTIVE: VITAL SIGNS: The patient has been afebrile for the last 24 hours. Blood pressure 95/57, heart rate 64, respiratory rate 20, oxygen saturation 94% on 4 L per nasal cannula. HEENT: Pupils are equal. Oropharynx appears clear. Neck is supple. Chest reveals shallow inspiration. Cardiac exam: S1, S2. Abdomen is mildly distended with increased tympany. Extremities are without edema. LABORATORIES: Sodium 138, potassium 4.3, chloride 92, bicarbonate 33, BUN 70, creatinine 1.7. IMPRESSION: 1. A 69-year-old with asthma exacerbation. The lung thomason are now clear. 2. Acute renal failure. The patient's creatinine continued to improve but both her creatinine and BUN have worsened for the last 3 consecutive days. 3. Acute on chronic hypoxemic respiratory failure. 4. Morbid obesity. 5. Small-bowel obstruction/constipation. PLAN: 1. Fluid bolus this evening. 2. Continue Clinimix. 3. Diet per General Surgery. 4. Follow-up chest x-ray and KUB tomorrow. cc: Aleksey Jung MD
[2019-10-15] MEDS ORDERED: NS ONE (08:10)
[2019-10-15] MEDS ORDERED: SODIUM BICARBONATE 8.4% ONE (08:10)
[2019-10-15] MEDS ORDERED: CALCIUM CHLORIDE SYRINGE ONE (08:10)
[2019-10-15] MEDS ORDERED: EPINEPHRINE SYRINGE ONE (08:10)
--- NOTE | 2019-10-15 08:19 | Diag Imaging Result Doc PS360 ---
EXAM: FLAT/UPRIGHT ABD/1 VIEW CHEST HISTORY: dyspnea TECHNIQUE: Four views 10/12/2019 COMPARISON: None. FINDINGS: Poor inspiratory effort. The heart is enlarged. Mild vascular distention. Left basilar atelectasis. There are air distended loops of small bowel and colon. No organomegaly. No abnormal calcifications. IMPRESSION: Ileus versus distal obstruction Electronically signed by Alfredo Lemon 10/15/2019 8:17 AM
--- NOTE | 2019-10-15 09:41 | GENERAL SURGERY PROGRESS NOTE ---
DATE: 10/15/2019 SUBJECTIVE: Patient says she is having more reflux, a little more distended. She is still having bowel movements. OBJECTIVE: Vital Signs: Patient is currently afebrile. Her vital signs stable. General: No acute distress. Cardiovascular: Regular rate and rhythm. Lungs: Grossly clear. Abdomen: Soft but more distended compared to yesterday. Obese. ASSESSMENT AND PLAN: A 69-year-old female with small-bowel obstruction. 1. Small bowel obstruction. At this time, she seems more distended, but she is having bowel function. We will need to continue to monitor. 2. She probably needs to sit up more to prevent her reflux like symptoms but we will continue to monitor her closely. 3. Her white blood cell count has increased to 17 so may need to consider further workup on that. We will defer to the hospitalist. cc: Herman Fisher MD
--- NOTE | 2019-10-15 09:43 | PROGRESS NOTE ---
DATE: 10/15/2019 SUBJECTIVE: A Code Blue was called by the nurses on this patient. Apparently the patient was about to take treatment and her face turned blue and she basically became unresponsive. We did the ACLS protocol, it looks like she was in PEA at the beginning. She received multiple rounds of epinephrine, bicarb, and also calcium. We started the code around 8:10 we stopped at 8:39 a.m., but I stopped the code and/or resuscitation after talking with the and he agreed with that. Unfortunately, the patient did not survive and she demised at 8:39 a.m. on 10/15/2019. cc: Des Corona MD
[2019-10-15 09:47] VITALS: BP 100/44
--- NOTE | 2019-10-15 10:31 | DISCHARGE SUMMARY ---
DATE: 10/15/2019 CODE NOTE: The patient this morning had a significant amount of pain. They had contacted me and contacted [facility] for pain medication although I think she already had morphine ordered, but her blood pressure was low. They tried to give her some morphine but before that, she became unresponsive. Dr. Hernandez responded. She was in an agonal rhythm. Rate was 43 without a pulse. She was given atropine and epinephrine and sodium bicarbonate. Dr. Flores then responded to the code from the Hospitalist service. She was intubated per Dr. Hernandez with the [employer]. She continued to be in PEA. She received calcium, another dose of epinephrine. She developed ventricular fibrillation and she was shocked to 200 joules. She was ventricular fibrillation again and shocked again. She was given bicarb, epinephrine, another dose of calcium. She was given a 3rd shock at 200 joules. All told, I think she got 4 doses of epinephrine, 8:34 noted she was in asystole without a pulse. She never had a meaningful pulse and she was called at 8:39, pronounced per Dr. Flores. Family was counseled. I also counseled the . I think cause of was an acute aspiration event. She has been having distal small-bowel obstruction issues versus ileus and with her body habitus and her Pickwickian syndrome when she had an episode of aspiration, which she has had episodes of nausea, vomiting, she had acute respiratory arrest associated with that. cc: Balta Fischer MD
[2019-10-15] MEDS ORDERED: NS 1,000 ML ONE (11:52)
== END 2019-10-15 08:39 | disposition expired | DRG 208 ==
LOC: ED 03:28 → SUATTDRO 07:50 → EDIPHOLD 07:50 → 1N 13:26 → ICU 10-05 15:49 → 2N 10-10 09:47 → 1N 10-12 15:54
PROVIDERS: ATTEND Internal Medicine